=== PATIENT | male | born 1945 | race Caucasian/White ===

== ENCOUNTER 2016-11-15 10:15 | Emergency (ER) | payer OTHER ==
--- NOTE | 2016-11-15 10:27 | UCPHY ---
H & P Patient Type: Established Time Seen by Provider: 11/15/16 10:24 HPI/ROS: 71-year-old male with a history of kidney transplant, and frequent urinary tract infections, referred here by his infectious disease doctor for IV antibiotics and to have labs checked. Patient had 2 episodes of vomiting earlier today but now states he feels much better. He denies fever or flank pain or abdominal pain. Review of systems General no fever no chills no weakness HEENT no eye pain no eye discharge. No eye redness, no sore throat Respiratory no cough, no shortness of breath Cardiac no chest pain, no peripheral edema GI no abdominal pain, no diarrhea, no constipation, positive nausea positive vomiting no flank pain, no hematuria, no dysuria Musculoskeletal no myalgias, no joint pain Heme no easy bruising, no easy bleeding Endo no polyuria, no polydipsia Skin no rashes, no pruritus Neuro no syncope, no dizziness, no headaches Psych is no suicidal ideation, no homicidal ideation Source: Patient, Family Exam Limitations: No limitations - Personal History Tetanus Vaccine Date: 2011 - Medical/Surgical History Hx Asthma: No Hx Chronic Respiratory Disease: No Hx Diabetes: Yes Hx Cardiac Disease: Yes Hx Renal Disease: Yes Hx Cirrhosis: No Hx Alcoholism: No Hx HIV/AIDS: No Hx Splenectomy or Spleen Trauma: No Other PMH: hypothyroid, pacemaker 2012, cardioversion, HTN, kidney transplant, Afib. uti. CVA. CABG - Family History Significant Family History: No pertinent family hx - Social History Smoking Status: Never smoked Alcohol Use: None Drug Use: None - Physical Exam Exam: 71-year-old male alert and oriented no acute distress nontoxic appearance Atraumatic normocephalic Neck supple Lungs clear to auscultation Heart regular rate and Abdomen nondistended bowel sounds present Extremities no cyanosis clubbing or trace edema Constitutional: Initial Vital Signs Temperature (C) 36.4 C 11/15/16 10:33 Heart Rate 70 11/15/16 10:33 Respiratory Rate 18 11/15/16 10:33 Blood Pressure 158/98 H 11/15/16 10:33 O2 Sat (%) 96 11/15/16 10:33 O2 Delivery Mode Room Air Allergies/Adverse Reactions: No Known Allergies Allergy (Verified 11/15/16 10:31) Home Medications: Medication Instructions Recorded Prednisone 5 mg PO DAILY 11/29/11 Timolol 0.5% [TIMOPTIC 0.5% (*)] 1 drops LEFTEYE BID 10/22/12 Latanoprost 0.005% [Xalatan 0.005% 1 drops LEFTEYE DAILY 05/31/13 (*)] Aspirin EC [Aspirin EC 81 mg (OTC)] 81 mg PO DAILY 06/21/13 Furosemide [Lasix 20 MG (*)] 10 mg PO DAILY 06/21/13 Mycophenolate Mofetil [Cellcept 750 mg PO BID 06/21/13 500 mg] Quinapril HCl [Accupril 10 MG] 10 mg PO HS 06/21/13 Rosuvastatin Calcium [Crestor 40mg 40 mg PO HS 06/21/13 (*)] Tacrolimus [Prograf] 1.5 mg PO BID 06/21/13 Warfarin Sodium [Coumadin 2.5MG 2.5 mg PO SUTUWETHSA@1600 06/21/13 (*)] Warfarin Sodium [Coumadin 5MG (*)] 5 mg PO MOFR@1600 06/21/13 Insulin Pump 0 unit SQ AD 11/17/14 Levothyroxine [Synthroid 50 mcg 50 mcg PO DAILY 11/17/14 (*)] Metoprolol Succinate 11/15/16 Medical Decision Making ED Course/Re-evaluation: Patient referred here for urinary tract infection not responding to current antibiotics so Infectious Diseases sent him here to get an IV dose of antibiotics He also had had some nausea and vomiting earlier today so was given fluids and ondansetron. Patient feeling markedly improved Patient received his cefepime 2 g IV piggyback as requested by Infectious Disease Patient to return tomorrow for a 2nd dose of cefepime 2 g IV piggyback He then will follow up with Infectious Disease on Thursday in their outpatient clinic - Data Points Laboratory Results: Laboratory Results 11/15/16 11:11 11/15/16 11:11 11/15/16 11:11 WBC 6.26 10^3/uL (3.80-9.50) RBC 4.55 10^6/uL (4.40-6.38) Hgb 13.4 L g/dL (13.7-17.5) Hct 41.7 % (40.0-51.0) MCV 91.6 fL (81.5-99.8) MCH 29.5 pg (27.9-34.1) MCHC 32.1 L g/dL (32.4-36.7) RDW 13.5 % (11.5-15.2) Plt Count 201 10^3/uL (150-400) MPV 10.0 fL (8.7-11.7) Neut % (Auto) 80.2 H % (39.3-74.2) Lymph % (Auto) 9.1 L % (15.0-45.0) [place] % (Auto) 8.1 % (4.5-13.0) Eos % (Auto) 1.3 % (0.6-7.6) Baso % (Auto) 0.5 % (0.3-1.7) Nucleat RBC Rel Count 0.0 % (0.0-0.2) Absolute Neuts (auto) 5.02 10^3/uL (1.70-6.50) Absolute Lymphs (auto) 0.57 L 10^3/uL (1.00-3.00) Absolute Monos (auto) 0.51 10^3/uL (0.30-0.80) Absolute Eos (auto) 0.08 10^3/uL (0.03-0.40) Absolute Basos (auto) 0.03 10^3/uL (0.02-0.10) Absolute Nucleated RBC 0.00 10^3/uL (0-0.01) Immature Gran % 0.8 % (0.0-1.1) Immature Gran # 0.05 10^3/uL (0.00-0.10) Sodium 136 mEq/L (134-144) Potassium 3.7 mEq/L (3.5-5.2) Chloride 98 mEq/L (97-110) Carbon Dioxide 27 mEq/l (22-31) Anion Gap 11 mEq/L (8-16) BUN 29 H mg/dL (7-23) Creatinine 1.9 H mg/dL (0.7-1.3) Estimated GFR 35 Glucose 198 H mg/dL (70-100) Calcium 8.7 mg/dL (8.5-10.4) Medications Given: Discontinued Medications Cefepime HCl 2 gm/ Dextrose 100 mls @ 200 mls/hr IV EDNOW ONE PRN Reason: Protocol Stop: 11/15/16 11:09 Last Admin: 11/15/16 11:25 Dose: 100 mls Sodium Chloride (Ns) 1,000 mls @ 0 mls/hr IV ONCE ONE PRN Reason: Wide Open Stop: 11/15/16 12:06 Last Admin: 11/15/16 12:06 Dose: 1,000 mls Ondansetron HCl (Zofran) 4 mg IVP EDNOW ONE Stop: 11/15/16 12:06 Last Admin: 11/15/16 12:45 Dose: 4 mg Departure - Departure Disposition: Home, Routine, Self-Care Clinical Impression: Urinary tract infectious disease, Urinary tract infection Condition: Good Instructions: Urinary Tract Infection in Men (ED) Additional Instructions: Return tomorrow as advised by Dr. Orlando for a 2nd dose of cefepime 2 g IV piggyback. She will then see you on Thursday to arrange a pic line and possibly 10 days of antibiotics. Referrals: Mega Leroy MD [Primary Care Provider] - As per Instructions - PQRS PQRS Measurement: 134: Depression screening and followup, PRIME MD-PHQ2 (12 years and older) Over the last 2 weeks, how often have you been bothered by any of the following problems? 1. Feeling down, depressed, or hopeless? 2. Little interest or pleasure in doing things? Patient answered no to both 1 and 2 130: Documentation of medications. Reviewed all patient medications, doses, route and frequency. 226: Do you smoke? No. 47: 65 and older: Advanced care planning. Patient designates surrogate decision maker as spouse.. [Patient has advanced directive.] 51: 18 years old and older with diagnosis of COPD, spirometry performance. [Patient has no history of COPD 52: 18 years old and older with COPD and symptoms of COPD or FEV1<60% predicted prescribed a B Agonist. [Spirometry not performed; equipment not available.]
[2016-11-15] MEDS ORDERED: CEFEPIME HCL 2 GM in D5W 100 ML IV ONE (10:40)
[2016-11-15] MEDS ORDERED: CEFEPIME HCL 2 GM VIAL IV ONE (11:09)
[2016-11-15] MEDS ORDERED: NS 100 ML BAG (MINI-BAG) IV ONE (11:11)
[2016-11-15 11:21] LABS: % IMMATURE GRANULYOCYTES 0.8 % (0.0-1.1); ABSOLUTE IMMATURE GRANULOCYTES 0.05 10^3/uL (0.00-0.10); ADD DIFF? NO; ADD MORPH? NO; ADD SCAN? NO; ATYPICAL LYMPHOCYTE FLAG 0 (0-99); FRAGMENT RBC FLAG 0 (0-99); HEMATOCRIT 41.7 % (40.0-51.0); HEMOGLOBIN 13.4 g/dL (13.7-17.5); LEFT SHIFT FLG 0 (0-99); LIPEMIA HEMOLYSIS FLAG 80 (0-99); MEAN CELL HEMOGLOBIN 29.5 pg (27.9-34.1); MEAN CELL HEMOGLOBIN CONCENTR. 32.1 g/dL (32.4-36.7); MEAN CELL VOLUME 91.6 fL (81.5-99.8); PLATELET CLUMPS FLAG 0 (0-99); PLATELET COUNT 201 10^3/uL (150-400); RED BLOOD CELL COUNT 4.55 10^6/uL (4.40-6.38); RED CELL DISTRIBUTION WIDTH 13.5 % (11.5-15.2)
[2016-11-15 11:37] LABS: CALCIUM 8.7 mg/dL (8.5-10.4); CREATININE 1.9 mg/dL (0.7-1.3); POTASSIUM 3.7 mEq/L (3.5-5.2)
[2016-11-15] MEDS ORDERED: NS 1,000 ML IV ONE (12:05)
[2016-11-15] MEDS ORDERED: ONDANSETRON 4 MG/2 ML VIAL IVP ONE (12:05)
[2016-11-15 13:10] VITALS: BP 165/92; PULSE 76; RESP 16; TEMP 98.1; O2SAT 95
== END 2016-11-15 13:13 | disposition home or self-care (01) ==
LOC: CED 10:15
DX: N39.0 Urinary tract infection, site not specified (principal); Z94.0 Kidney transplant status; Z87.440 Personal history of urinary (tract) infections
CPT/HCPCS: 96361; 96365; 96375; G0463; J0692; J2405; 80048-PO; 85025-PO; 99214-PO

== ENCOUNTER 2016-11-16 12:05 | Emergency (ER) | payer OTHER ==
[2016-11-16 12:27] VITALS: BP 151/83; PULSE 70; RESP 16; TEMP 98.1; O2SAT 99
[2016-11-16] MEDS ORDERED: CEFEPIME HCL 2 GM in NS 100 ML IV ONE (13:21)
--- NOTE | 2016-11-16 13:24 | UCPHY ---
H & P Time Seen by Provider: 11/16/16 13:18 Patient Type: Established HPI/ROS: CHIEF COMPLAINT: Here for IV antibiotics HISTORY OF PRESENT ILLNESS: 71-year-old male history of kidney transplant, frequent urinary tract infections, in the urgent care for 2nd dose of IV cefepime. He was referred to the urgent care yesterday by his infectious disease doctor, Dr. Ching Camarena for IV cefepime and have laboratory studies drawn. Today is Thursday. The plan is that he will receive a dose of IV cefepime today be seen by Dr. da vega tomorrow. In clinic today states that he is feeling remarkably better. No nausea or vomiting. No fever or chills. No back or flank pain. No flu-like symptoms. REVIEW OF SYSTEMS: A ten point review of systems was performed and is negative with the exception of the items mentioned in the HPI PAST MEDICAL & SURGICAL HISTORY: Kidney transplant. Hypothyroid. CABG. AFib. Frequent UTI. SOCIAL HISTORY: Nonsmoker PHYSICAL EXAM (Prior to examination, patient consented to physical exam, hands were washed and my usual and customary physical exam procedures followed) 1) GENERAL: Well-developed, well-nourished, alert and oriented. Appears to be in no acute distress. 2) HEAD: Normocephalic, atraumatic 3) HEENT: Pupils equal, round, reactive to light bilaterally. Sclera anicteric. 4) NECK: Full range of motion, no meningeal signs. 5) LUNGS: Clear auscultation bilaterally, no wheezes, no rhonchi, no retractions. 6) HEART: Regular rate and rhythm, no murmur, no heave, no gallop. 7) ABDOMEN: No guarding, no rebound, no focal tenderness, negative McBurney's, negative Doherty's, negative Rovsing's, negative peritoneal sign, 8) MUSCULOSKELETAL: Moving all extremities, no focal areas of tenderness, no obvious trauma. No peripheral edema or discoloration. 9) BACK: No CVA tenderness 10) SKIN: No rash, no petechiae. 11) Psychiatric: Patient is oriented X 3, there is no agitation. DIFFERENTIAL DIAGNOSIS: in no particular order including but not limited to urosepsis, pyelonephritis, cystitis Smoking Status: Never smoked Constitutional: Initial Vital Signs Temperature (C) 36.7 C 11/16/16 12:24 Heart Rate 70 11/16/16 12:24 Respiratory Rate 16 11/16/16 12:24 Blood Pressure 151/83 H 11/16/16 12:24 O2 Sat (%) 99 11/16/16 12:24 O2 Delivery Mode Room Air Allergies/Adverse Reactions: No Known Allergies Allergy (Verified 11/15/16 10:31) Home Medications: Medication Instructions Recorded Prednisone 5 mg PO DAILY 11/29/11 Timolol 0.5% [TIMOPTIC 0.5% (*)] 1 drops LEFTEYE BID 10/22/12 Latanoprost 0.005% [Xalatan 0.005% 1 drops LEFTEYE DAILY 05/31/13 (*)] Aspirin EC [Aspirin EC 81 mg (OTC)] 81 mg PO DAILY 06/21/13 Furosemide [Lasix 20 MG (*)] 10 mg PO DAILY 06/21/13 Mycophenolate Mofetil [Cellcept 750 mg PO BID 06/21/13 500 mg] Quinapril HCl [Accupril 10 MG] 10 mg PO HS 06/21/13 Rosuvastatin Calcium [Crestor 40mg 40 mg PO HS 06/21/13 (*)] Tacrolimus [Prograf] 1.5 mg PO BID 06/21/13 Warfarin Sodium [Coumadin 2.5MG 2.5 mg PO SUTUWETHSA@1600 06/21/13 (*)] Warfarin Sodium [Coumadin 5MG (*)] 5 mg PO MOFR@1600 06/21/13 Insulin Pump 0 unit SQ AD 11/17/14 Levothyroxine [Synthroid 50 mcg 50 mcg PO DAILY 11/17/14 (*)] Metoprolol Succinate 11/15/16 MDM/Departure - [facility] ED Course/Re-evaluation: 1:24 p.m.: Old medical records reviewed including his chart from the urgent care yesterday and his urine culture and sensitivity showing E coli and cefepime sensitivity. As today is Thursday, he will be given his 2nd dose of IV cefepime will follow up with his infectious disease doctor tomorrow Dr. Ching Orlando . Discussed with Dr Collins in urgent care. - Depart Disposition: Home, Routine, Self-Care Clinical Impression: Urinary tract infection Qualifiers: Urinary tract infection type: acute cystitis Hematuria presence: with hematuria Qualifier Code: (N30.01) Acute cystitis with hematuria Condition: Good Instructions: Urinary Tract Infection in Men (ED) Additional Instructions: If you develop fevers, nausea, vomiting or any other symptoms come to the ER immediately for evaluation Referrals: Ching Orlando MD [Medical Doctor] - 1 day without fail (Call Dr. Ching Orlando tomorrow morning) - PQRS PQRS Measurement: 134: Depression screening and followup, PRIME MD-PHQ2 (12 years and older) Over the last 2 weeks, how often have you been bothered by any of the following problems? 1. Feeling down, depressed, or hopeless? 2. Little interest or pleasure in doing things? Patient answered no to both 1 and 2 Patient answered yes to at least 1, referred to PCP for further evaluation. Not done because altered mental status patient refused critically ill. 130: Documentation of medications. Reviewed all patient medications, doses, route and frequency. 226: Do you smoke? No. 47: 65 and older: Advanced care planning. Patient designates surrogate decision maker as spouse . 51: 18 years old and older with diagnosis of COPD, spirometry performance. Patient has no history of COPD 52: 18 years old and older with COPD and symptoms of COPD or FEV1<60% predicted prescribed a B Agonist. Not applicable
[2016-11-16] MEDS ORDERED: NS 100 ML BAG (MINI-BAG) IV ONE (13:29)
[2016-11-16] MEDS ORDERED: CEFEPIME HCL 2 GM VIAL IV ONE (13:29)
== END 2016-11-16 14:12 | disposition home or self-care (01) ==
LOC: CED 12:05
DX: Z51.81 Encounter for therapeutic drug level monitoring (principal); N30.01 Acute cystitis with hematuria; Z94.0 Kidney transplant status; Z87.440 Personal history of urinary (tract) infections
CPT/HCPCS: 96365; G0463; J0692

== ENCOUNTER 2017-02-11 17:54 | Observation (INO) | payer OTHER ==
--- NOTE | 2017-02-11 18:22 | CPEKG ---
Heart Rate: 76 RR Interval: 789 P-R Interval: 228 QRSD Interval: 110 QT Interval: 448 QTC Interval: 504 P [place]: 62 QRS [place]: 83 T Wave [place]: -84 EKG Severity - ABNORMAL ECG - EKG Impression: SINUS RHYTHM EKG Impression: FIRST DEGREE AV BLOCK EKG Impression: INCOMPLETE RIGHT BUNDLE BRANCH BLOCK EKG Impression: BORDERLINE ST DEPRESSION, LATERAL LEADS Electronically Signed By: Jovanny Lang 11-Feb-2017 18:22:04
--- NOTE | 2017-02-11 18:22 | EDPHY ---
H & P Time Seen by Provider: 02/11/17 18:11 HPI/ROS: CHIEF COMPLAINT: Chest pain HISTORY OF PRESENT ILLNESS: Patient had cardiac bypass approximately 20 years ago and a kidney transplant around that time as well. He had a pacemaker placed in 2012. Today was at home about to take a nap when he developed central chest pain which did not radiate and was associated with some shortness of breath but not with nausea or diaphoresis. It lasted maybe an hour and now is completely gone. He had another episode like that in September. He has not had any stenting since his bypass. REVIEW OF SYSTEMS: Eye: no change in vision ENT: no sore throat Cardiac: HPI Pulmonary: chronic cough, unchanged, no SOB Abdomen: no vomiting, diarrhea, abdominal pain Musculoskeletal: no back pain Skin: Chronic multiple bruising from Coumadin. Neuro: no headache Constitutional: no fever : no urinary symptoms. Self catheterizes but no change. A comprehensive 10 point review of systems is otherwise negative aside from elements mentioned in the history of present illness. PAST MEDICAL HISTORY: Thyroid disease, pacemaker, hypertension, kidney transplant, atrial fibrillation, stroke, cardiac bypass. Social history: . General Appearance: Alert and conversant, cooperative. Eyes: No scleral icterus. ENT, Mouth: Normal mucous membranes. Respiratory: Normal respiratory effort, breath sounds equal, lungs are clear to auscultation. Cardiovascular: Regular rate and rhythm. Gastrointestinal: Abdomen is soft and non tender. Neurological: Alert and oriented x3. Normally conversant. Face symmetric, normal movement and sensation in all extremities. Skin: Multiple areas of bruising. Musculoskeletal: No peripheral edema and no joint swelling. Psychiatric: Not agitated. Emergency Department course/MDM: EKG is remarkable for new T-wave inversions inferolaterally. Plan for chest x- ray and troponin. No aspirin because the patient is on warfarin. 1906: Results discussed including creatinine 2.0 which is around baseline, and slightly elevated troponin which is similar to previous. Plan to admit for cardiology evaluation with new EKG changes. INR is 3.19, pulmonary embolism unlikely. Smoking Status: Never smoked Constitutional: Initial Vital Signs Temperature (C) 36.6 C 02/11/17 18:02 Heart Rate 76 02/11/17 18:02 Respiratory Rate 20 02/11/17 18:02 Blood Pressure 131/75 H 02/11/17 18:02 O2 Sat (%) 93 02/11/17 18:02 O2 Delivery Mode Room Air Allergies/Adverse Reactions: No Known Allergies Allergy (Verified 02/11/17 18:00) Home Medications: Medication Instructions Recorded Prednisone 5 mg PO DAILY 11/29/11 Timolol 0.5% [TIMOPTIC 0.5% (*)] 1 drops LEFTEYE BID 10/22/12 Latanoprost 0.005% [Xalatan 0.005% 1 drops LEFTEYE DAILY 05/31/13 (*)] Aspirin EC [Aspirin EC 81 mg (OTC)] 81 mg PO DAILY 06/21/13 Furosemide [Lasix 20 MG (*)] 10 mg PO DAILY 06/21/13 Mycophenolate Mofetil [Cellcept 750 mg PO BID 06/21/13 500 mg] Quinapril HCl [Accupril 10 MG] 10 mg PO HS 06/21/13 Rosuvastatin Calcium [Crestor 40mg 40 mg PO HS 06/21/13 (*)] Tacrolimus [Prograf] 1.5 mg PO BID 06/21/13 Warfarin Sodium [Coumadin 2.5MG 2.5 mg PO SUTUWETHSA@1600 06/21/13 (*)] Warfarin Sodium [Coumadin 5MG (*)] 5 mg PO MOFR@1600 06/21/13 Insulin Pump 0 unit SQ AD 11/17/14 Levothyroxine [Synthroid 50 mcg 50 mcg PO DAILY 11/17/14 (*)] Metoprolol Succinate 11/15/16 Medical Decision Making - Diagnostics EKG Interpretation: 12-lead EKG interpreted by me; official reading is in trace master. My interpretation is sinus rhythm with first-degree AV block and new inferior lateral T-wave inversions compared to previous. Imaging Results: Imaging Impressions Chest X-Ray 02/11/17 18:20 Impression: 1. Pacemaker without pneumothorax. 2. No acute pulmonary disease. Differential Diagnosis: Differential diagnosis considered for chest pain including but not limited to myocardial ischemia, aortic dissection, pericarditis, pulmonary embolus, chest wall pain, pleural inflammation and pulmonary infectious causes. Consult/Admit Bed Type: [facility] 1914, [facility] 1920 - Data Points Laboratory Results: Laboratory Results 02/11/17 18:13 02/11/17 18:13 02/11/17 02/11/17 02/11/17 18:13 18:13 18:13 WBC 6.47 10^3/uL 10^3/uL (3.80-9.50) RBC 4.99 10^6/uL 10^6/uL (4.40-6.38) Hgb 14.6 g/dL g/dL (13.7-17.5) Hct 47.3 % % (40.0-51.0) MCV 94.8 fL fL (81.5-99.8) MCH 29.3 pg pg (27.9-34.1) MCHC 30.9 g/dL L g/dL (32.4-36.7) RDW 13.2 % % (11.5-15.2) Plt Count 233 10^3/uL 10^3/uL (150-400) MPV 10.0 fL fL (8.7-11.7) Neut % (Auto) 86.3 % H % (39.3-74.2) Lymph % (Auto) 6.2 % L % (15.0-45.0) [place] % (Auto) 6.2 % % (4.5-13.0) Eos % (Auto) 0.3 % L % (0.6-7.6) Baso % (Auto) 0.2 % L % (0.3-1.7) Nucleat RBC Rel Count 0.0 % % (0.0-0.2) Absolute Neuts (auto) 5.59 10^3/uL 10^3/uL (1.70-6.50) Absolute Lymphs (auto) 0.40 10^3/uL L 10^3/uL (1.00-3.00) Absolute Monos (auto) 0.40 10^3/uL 10^3/uL (0.30-0.80) Absolute Eos (auto) 0.02 10^3/uL L 10^3/uL (0.03-0.40) Absolute Basos (auto) 0.01 10^3/uL L 10^3/uL (0.02-0.10) Absolute Nucleated RBC 0.00 10^3/uL 10^3/uL (0-0.01) Immature Gran % 0.8 % % (0.0-1.1) Immature Gran # 0.05 10^3/uL 10^3/uL (0.00-0.10) PT 33.1 SEC H SEC (12.0-15.0) INR 3.19 H (0.83-1.16) APTT 38.6 SEC H SEC (23.0-38.0) Sodium 134 mEq/L mEq/L (134-144) Potassium 4.6 mEq/L mEq/L (3.5-5.2) Chloride 97 mEq/L mEq/L (97-110) Carbon Dioxide 27 mEq/l mEq/l (22-31) Anion Gap 10 mEq/L mEq/L (8-16) BUN 37 mg/dL H mg/dL (7-23) Creatinine 2.0 mg/dL H mg/dL (0.7-1.3) Estimated GFR 33 Glucose 367 mg/dL H mg/dL (70-100) Calcium 9.1 mg/dL mg/dL (8.5-10.4) Troponin I 0.038 ng/mL H ng/mL (0-0.034) Departure - Departure Disposition: [facility] [place] [facility] Acute Clinical Impression: Chest pain Qualifiers: Chest pain type: unspecified Qualified Code(s): R07.9 - Chest pain, unspecified Condition: Good Referrals: Mega Leroy MD [Primary Care Provider] - As per Instructions
[2017-02-11 18:33] LABS: % IMMATURE GRANULYOCYTES 0.8 % (0.0-1.1); ABSOLUTE IMMATURE GRANULOCYTES 0.05 10^3/uL (0.00-0.10); ADD DIFF? NO; ADD MORPH? NO; ADD SCAN? NO; ATYPICAL LYMPHOCYTE FLAG 0 (0-99); FRAGMENT RBC FLAG 0 (0-99); HEMATOCRIT 47.3 % (40.0-51.0); HEMOGLOBIN 14.6 g/dL (13.7-17.5); LEFT SHIFT FLG 0 (0-99); LIPEMIA HEMOLYSIS FLAG 80 (0-99); MEAN CELL HEMOGLOBIN 29.3 pg (27.9-34.1); MEAN CELL HEMOGLOBIN CONCENTR. 30.9 g/dL (32.4-36.7); MEAN CELL VOLUME 94.8 fL (81.5-99.8); PLATELET CLUMPS FLAG 0 (0-99); PLATELET COUNT 233 10^3/uL (150-400); RED BLOOD CELL COUNT 4.99 10^6/uL (4.40-6.38); RED CELL DISTRIBUTION WIDTH 13.2 % (11.5-15.2)
[2017-02-11 18:46] LABS: INR 3.19 (0.83-1.16); PROTIME(PATIENT) 33.1 SEC (12.0-15.0)
[2017-02-11 18:47] LABS: APTT 38.6 SEC (23.0-38.0)
[2017-02-11 18:50] LABS: ANION GAP 10 mEq/L (8-16); CALCIUM 9.1 mg/dL (8.5-10.4); CARBON DIOXIDE 27 mEq/l (22-31); CHLORIDE 97 mEq/L (97-110); GLOMERULAR FILTRATION RATE 33; GLUCOSE 367 mg/dL (70-100); POTASSIUM 4.6 mEq/L (3.5-5.2); SODIUM 134 mEq/L (134-144)
[2017-02-11 19:02] LABS: TROPONIN I 0.038 ng/mL (0-0.034)
--- NOTE | 2017-02-11 20:45 | GHP ---
[f rep st] HISTORY AND PHYSICAL DATE OF ADMISSION: 02/11/2017 CHIEF COMPLAINT: Chest pressure. HISTORY OF PRESENT ILLNESS: This is a 71-year-old male with a history of coronary artery disease, status post 5-vessel CABG who presented to the emergency department today with chest pressure. His symptoms began at 4:15 a.m. while he was at rest. It was described as a left-sided 2/10 pressure that lasted for an hour and then self-resolved. It was associated with some mild shortness of breath. Currently he is pain free. The patient tells me he had a similar episode of chest discomfort in September at which time he was evaluated at [facility] and had a nuclear stress test done which was irregular, but was not thought to be ischemic. 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 Terry Wheat. PAST MEDICAL HISTORY: 1. Coronary artery disease, status post 5-vessel CABG. 2. Atrial fibrillation on anticoagulation. 3. CVA. 4. Hypertension. 5. Urinary tract infections with Pseudomonas colonization. 6. Diabetes mellitus. 7. Obstructive sleep apnea. 8. Diastolic congestive heart failure. 9. Hypothyroidism. 10. Status post kidney transplant due to diabetic nephropathy. PAST SURGICAL HISTORY: 1. Five-vessel CABG. 2. Kidney transplant. 3. Right great toe amputation. 4. Left arm open reduction and internal fixation. 5. Pacemaker placement. HOME MEDICATIONS: Were reviewed. Refer to [facility] for details. ALLERGIES: No known drug allergies. SOCIAL HISTORY: The patient is . His is at the bedside. He denies any alcohol, tobacco, or illicit drug use. FAMILY HISTORY: Reviewed and noncontributory. REVIEW OF SYSTEMS: A comprehensive 10-point review of systems was done and was negative except for as mentioned in the HPI. PHYSICAL EXAMINATION: VITAL SIGNS: Blood pressure 131/75, pulse 76, respiratory rate 20, O2 saturation 93% on room air. Temperature afebrile. GENERAL: No acute distress. HEAD: Normocephalic, atraumatic. EYES: PERRLA. Sclerae anicteric. MOUTH: Moist mucous membranes. NECK: Supple. No lymphadenopathy. CARDIOVASCULAR: S1, S2. No JVD. No lower extremity edema. PULMONARY: Lungs are clear. No wheezes, rales, or rhonchi. ABDOMEN: Soft, nontender, nondistended. No guarding or rebound tenderness. Normoactive bowel sounds. EXTREMITIES: No clubbing or cyanosis. NEURO: Cranial nerves 2-12 grossly intact. No focal motor or sensory deficits. DIAGNOSTICS: WBC 6.47, hemoglobin 14.6, hematocrit 47.3, platelets 233. INR 3.19, sodium 134, potassium 4.6, chloride 97, BUN 37, creatinine 2, glucose 367 , troponin was 0.038. Chest x-ray shows no acute pulmonary disease. EKG, which I visualized and personally interpreted, shows sinus rhythm, rate 76 beats per minute with borderline ST depressions in the lateral leads. ASSESSMENT AND PLAN: This is a 71-year-old male with multiple risk factors for acute coronary syndrome and known coronary disease with history of 5-vessel coronary artery bypass graft, presenting with: 1. Left-sided chest pressure in the setting of an indeterminate troponin and abnormal EKG. Plan: The patient will be placed on observation. Will be monitored on telemetry where his we will cycle his troponins. Cardiology has been consulted. 2. History of atrial fibrillation, with therapeutic INR on Coumadin. Will continue home dose of Coumadin. 3. History of diabetes mellitus with likely stress hyperglycemia. Plan: continue the patient's home diabetes medications and treat with correctional insulin as indicated. 6. History of renal transplant with stable creatinine. Plan: Continue home antirejection medications. /[id number]/MODL MTDD
[2017-02-11] MEDS ORDERED: D50W 25 GM/50 ML SYR IVP PRN (21:53)
[2017-02-12 04:57] LABS: INR 3.74 (0.83-1.16); PROTIME(PATIENT) 37.6 SEC (12.0-15.0)
[2017-02-12 05:28] LABS: ANION GAP 5 mEq/L (8-16); CALCIUM 8.6 mg/dL (8.5-10.4); CARBON DIOXIDE 28 mEq/l (22-31); CHLORIDE 101 mEq/L (97-110); CREATININE 1.8 mg/dL (0.7-1.3); GLOMERULAR FILTRATION RATE 37; GLUCOSE 56 mg/dL (70-100); SODIUM 134 mEq/L (134-144)
[2017-02-12] MEDS: INSULIN LISPRO 100 UNIT/ML SC SCH ×2 (09:06→14:34)
--- NOTE | 2017-02-12 10:47 | PDCARCONS ---
Cardiology Consult Reason for Consult: chest pressure Chief Complaint: Episode of chest pressure Requesting Physician: Germaine History of Present Illness: 71 yo with known CAD, recurrent afib/atach with pacer. He had a recent UTI and completed 4 days of bactrim. Yesterday he awoke to urinate. He had upper chest pressure with this. It did not radiate to arm or jaw. It was not associated with shortness of breath or diaphoresis. No nausea or vomitng. Pain lasted 1-2 hours then resolved. He felt like he was in a tachy-arrhythmia and came to the ED. He feels back to baseline. He has a hx. of remote [place]. Last September he was admitted to [facility] and had a MPI revealing IMI. EF has been preserved. This am he is free of chest pain, sob, pnd,orthopnea,palps, syncope,near- syncope. History Information - Allergies/Home Medication List Allergies/Adverse Reactions: No Known Allergies Allergy (Verified 02/11/17 18:00) Home Medications: Amiodarone HCl [Pacerone (*)] 200 mg PO DAILY 02/11/17 [Last Taken 02/11/17] Aspirin [Aspirin 81mg (*)] 81 mg PO DAILY 02/11/17 [Last Taken 02/11/17] Atorvastatin Calcium [Lipitor 40 mg (*)] 40 mg PO HS 02/11/17 [Last Taken Unknown] Furosemide [Lasix 20 MG (*)] 10 mg PO DAILY 02/11/17 [Last Taken 02/11/17] Insulin Pump, Patient Own 1 ea [facility] AD 02/11/17 [Last Taken Unknown] Latanoprost 0.005% [Xalatan 0.005% (*)] 1 drops EACHEYE HS 02/11/17 [Last Taken 02/10/17] Levothyroxine [Synthroid 50 mcg (*)] 50 mcg PO DAILY 02/11/17 [Last Taken ] Metoprolol Tartrate [Lopressor 25 mg (*)] 25 mg PO BID 02/11/17 [Last Taken ] Mycophenolate Mofetil [Cellcept] 750 mg PO BID 02/11/17 [Last Taken 02/11/17] Quinapril HCl [Accupril 5 mg] 5 mg PO HS 02/11/17 [Last Taken 02/10/17] Tacrolimus Anhydrous [Prograf 0.5 MG (*)] 1.5 mg PO BID 02/11/17 [Last Taken ] Timolol 0.5% [TIMOPTIC 0.5% (*)] 1 drops LEFTEYE DAILY 02/11/17 [Last Taken ] Warfarin Sodium [Coumadin 2.5MG (*)] 2.5 mg PO SUTUWETHSA 02/11/17 [Last Taken 02/09/17] Warfarin Sodium [Coumadin 5MG (*)] 5 mg PO MOFR 02/11/17 [Last Taken 02/10/17] predniSONE 5 mg PO DAILY 02/11/17 [Last Taken 02/11/17] I have personally reviewed and updated: medical history, social history, surgical history - Past Medical History atrial fibrillation, coronary artery disease, diabetes type 1, recurrent UTI - Surgical History Reports: pacemaker/AICD - Family History Positive for: non-pertinent - Social History Smoking Status: Never smoked Physical Exam Temp Pulse Resp BP Pulse Ox 36.6 C 83 20 151/99 H 91 L 02/12/17 07:51 02/12/17 07:51 02/12/17 07:51 02/12/17 07:51 02/12/17 07:51 O2 (L/minute) 2 Constitutional: no apparent distress Eyes: No icteric sclera Ears, Nose, Mouth, Throat: moist mucous membranes Cardiovascular: regular rate and rhythym, No JVD Peripheral Pulses: 1+: carotid (R), carotid (L) Respiratory: no respiratory distress, no rales or rhonchi, clear to auscultation Gastrointestinal: normoactive bowel sounds, soft, non-tender abdomen Skin: warm, other (cushingoid facies) Neurologic: AAOx3 Psychiatric: not anxious Lymph, Heme, Immunologic: no cervical LAD, no supraclavicular LAD Lab and Imaging 02/11/17 18:13 02/12/17 03:52 WBC 6.47 10^3/uL (3.80-9.50) 02/11/17 18:13 RBC 4.99 10^6/uL (4.40-6.38) 02/11/17 18:13 Hgb 14.6 g/dL (13.7-17.5) 02/11/17 18:13 Hct 47.3 % (40.0-51.0) 02/11/17 18:13 MCV 94.8 fL (81.5-99.8) 02/11/17 18:13 MCH 29.3 pg (27.9-34.1) 02/11/17 18:13 MCHC 30.9 g/dL (32.4-36.7) L 02/11/17 18:13 RDW 13.2 % (11.5-15.2) 02/11/17 18:13 Plt Count 233 10^3/uL (150-400) 02/11/17 18:13 MPV 10.0 fL (8.7-11.7) 02/11/17 18:13 Neut % (Auto) 86.3 % (39.3-74.2) H 02/11/17 18:13 Lymph % (Auto) 6.2 % (15.0-45.0) L 02/11/17 18:13 Mora % (Auto) 6.2 % (4.5-13.0) 02/11/17 18:13 Eos % (Auto) 0.3 % (0.6-7.6) L 02/11/17 18:13 Baso % (Auto) 0.2 % (0.3-1.7) L 02/11/17 18:13 Nucleat RBC Rel Count 0.0 % (0.0-0.2) 02/11/17 18:13 Absolute Neuts (auto) 5.59 10^3/uL (1.70-6.50) 02/11/17 18:13 Absolute Lymphs (auto) 0.40 10^3/uL (1.00-3.00) L 02/11/17 18:13 Absolute Monos (auto) 0.40 10^3/uL (0.30-0.80) 02/11/17 18:13 Absolute Eos (auto) 0.02 10^3/uL (0.03-0.40) L 02/11/17 18:13 Absolute Basos (auto) 0.01 10^3/uL (0.02-0.10) L 02/11/17 18:13 Absolute Nucleated RBC 0.00 10^3/uL (0-0.01) 02/11/17 18:13 Immature Gran % 0.8 % (0.0-1.1) 02/11/17 18:13 Immature Gran # 0.05 10^3/uL (0.00-0.10) 02/11/17 18:13 PT 37.6 SEC (12.0-15.0) H 02/12/17 03:52 INR 3.74 (0.83-1.16) H 02/12/17 03:52 APTT 38.6 SEC (23.0-38.0) H 02/11/17 18:13 Sodium 134 mEq/L (134-144) 02/12/17 03:52 Potassium 4.0 mEq/L (3.5-5.2) 02/12/17 03:52 Chloride 101 mEq/L (97-110) 02/12/17 03:52 Carbon Dioxide 28 mEq/l (22-31) 02/12/17 03:52 Anion Gap 5 mEq/L (8-16) L 02/12/17 03:52 BUN 37 mg/dL (7-23) H 02/12/17 03:52 Creatinine 1.8 mg/dL (0.7-1.3) H 02/12/17 03:52 Estimated GFR 37 02/12/17 03:52 Glucose 56 mg/dL (70-100) L 02/12/17 03:52 POC Glucose 117 mg/dL (70-100) H 02/12/17 06:28 Calcium 8.6 mg/dL (8.5-10.4) 02/12/17 03:52 Troponin I 0.033 ng/mL (0-0.034) 02/11/17 23:10 Laboratory Tests 02/11/17 02/11/17 02/12/17 18:13 23:10 03:52 Creatinine 2.0 H 1.8 H Troponin I 0.038 H 0.033 Visualized and Interpreted imaging results: Yes Interpretation: pacemaker. no infiltrate. EKG additional interpertation: sr with lvh and strain A/P Assessment: 1. Atypical chest pain with flat troponin. 2. CAD hx. 3. Hx. afib/Atach on amiodarone with PPM History is not consistent with acute coronary syndrome with stable ecg and flat enzymes despite two hours of discomfort. He has been recently risk stratified. Angiography has been discussed, but, with CRI, risk out weighs benefit at this point. Plan: Ambulate. If free of pain, home with outpatient follow up Continue current medical therapy. Consider repeat lexiscan as outpatient. Add shanna mb/ Review of Systems - Review of Systems Constitutional: denies: chills, diaphoresis, fever Respiratory: no symptoms reported, shortness of breath Cardiac: no symptoms reported Gastrointestinal/Abdominal: no symptoms reported Genitourinary: no symptoms Musculoskelatal: no symptoms Skin: no symptoms Neurological: dizziness Hematologic/Lymphatic: no symptoms reported Immunologic/allergic: no symptoms reported
[2017-02-12 12:14] VITALS: TEMP 98
[2017-02-12 13:32] LABS: COLOR YELLOW; LEUKOCYTE ESTERASE,URINE 2+ (NEGATIVE); NITRITE,URINE NEGATIVE (NEGATIVE)
[2017-02-12 14:23] LABS: BACTERIA TRACE /hpf (NONE SEEN); WBC,URINE 25-50 /hpf (0-3)
[2017-02-12] MEDS ORDERED: NON-FORMULARY NEW DRUG (Insulin Pump, Patient Own 1 EA) MISC SCH (14:45)
[2017-02-12 16:17] VITALS: BP 149/96; PULSE 84; RESP 15; O2SAT 93
[2017-02-12 16:45] LABS: CK-MB INTERPRETATION POSITIVE (NEGATIVE); CREATINE KINASE-MB FRACTION 3.33 ng/mL (0-4.55)
--- NOTE | 2017-02-12 18:41 | PCMIDPN ---
Assessment/Plan: Assessment/Plan: * Pyuria: Recently completed 5 day course of Bactrim for E coli UTI. Symptoms now have resolved. Given absence of symptoms, recommend continued observation off antibiotic therapy at this point in time. Culture is pending in event develops symptoms which would help with guiding antibiotic therapy. Discussed with patient, and nursing staff. Advised to notify me if develops recurrent symptoms of UTI. 02/12/17 18:37 Subjective: Asked to see patient well known to me with history of recurrent urinary tract infection, urinary retention requiring intermittent catheterization, and prior renal transplantation with concerns about possible recurrent UTI. Patient recently completed 5 days of Bactrim for E coli UTI. His notes that his symptoms were slow to resolve and that he was still having cloudy urine prior to hospitalization for chest pain. She notes since hospitalization, the urine has cleared and his frequency has decreased. He does have intermittent difficulty passing catheters but this is unchanged from baseline. No fever or chills. No abdominal or flank pain. Objective: Vital Signs Temp Pulse Resp BP Pulse Ox 36.7 C 84 15 149/96 H 93 02/12/17 16:16 02/12/17 16:16 02/12/17 16:16 02/12/17 16:16 02/12/17 16:16 Laboratory Results 02/12/17 03:52 02/11/17 02/12/17 02/13/17 05:59 05:59 05:59 Intake Total 750 300 Output Total 650 1550 Balance 100 -1250 Laboratory Tests 02/12/17 13:00 Urine RBC 3-5 H Urine WBC 25-50 H Urine Bacteria TRACE H - Physical Exam General Appearance: alert, no apparent distress Abdomen: non-tender, No distended Back: No CVA tenderness ICD10 Worksheet Patient Problems: Problems Problem Status Onset Afib - Atrial fibrillation Active CAD - Coronary arteriosclerosis Active Chronic kidney disease stage 5 Active Diabetes mellitus type 1 Active History of - hypertension Active Tachycardia-bradycardia Active Chest pain Acute Urinary tract infection Acute
--- NOTE | 2017-02-12 19:04 | GDS ---
[f rep st] DISCHARGE SUMMARY DISCHARGE DIAGNOSES: 1. Atypical chest pain with flat troponin. 2. Coronary artery disease. 3. Atrial fibrillation with pacemaker. 4. Possible urinary tract infection. 5. Diabetes. 6. Kidney transplant on chronic immunosuppression. 7. 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 8. Pseudomonas colonization of the urine. 9. Previous coronary artery bypass graft. HISTORY: The patient is a 71-year-old male with a history of coronary artery disease status post fi ve-vessel CABG who presented with chest pain. This was transient and resolved. He was seen in cons ultation with Dr. 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 He felt his chest pain was atypical and his tro ponins were flat, and no further intervention was needed at this time. The patient remained symptom -free throughout the remainder of his observation. He does have recurrent resistant urinary tract infections and follows closely with Dr. Villegas. He had just finished a course of Bactrim and had recurrence of symptoms after the Bactrim had stopped. Re peat UA showed persistent white blood cell elevation in the urine. Dr. Villegas saw the patient in the hospital as his last E coli had very few options orally other than Bactrim. He is at high risk for Bactrim therapy given his chronic kidney disease, baseline creatinine [address] Villegas saw him in consultation and did not think we needed to repeat an antibiotic course at thi s time. FOLLOW-UP: He will follow up with Dr. Villegas closely on an ongoing basis regarding this. DISCHARGE MEDICATIONS: Please see computer record for full detailed list. There are no new medicat ions given at the time of hospital discharge. Patient was seen and examined by me on the day of discharge. /[id number]/MODL
[2017-02-12] MEDS ORDERED: MYCOPHENOLATE MOFETIL 750 MG PO SCH (21:00)
[2017-02-12] MEDS ORDERED: METOPROLOL TARTRATE 25 MG TAB PO SCH (21:00)
[2017-02-12] MEDS ORDERED: MYCOPHENOLATE MOFETIL 250 MG CAP PO SCH (21:00)
[2017-02-12] MEDS ORDERED: TACROLIMUS 1 MG CAP PO SCH (21:00)
[2017-02-12] MEDS ORDERED: LISINOPRIL 5 MG TAB PO SCH (21:00)
[2017-02-12] MEDS ORDERED: TACROLIMUS ANHYDROUS 0.5 MG CAP PO SCH (21:00)
[2017-02-12] MEDS ORDERED: QUINAPRIL HCL 5 MG PO SCH (21:00)
[2017-02-12] MEDS ORDERED: LATANOPROST 0.005% 2.5 ML OPHT DROPS EACHEYE SCH (21:00)
[2017-02-12] MEDS ORDERED: ATORVASTATIN CALCIUM 40 MG TAB PO SCH (21:00)
[2017-02-13] MEDS ORDERED: LEVOTHYROXINE 50 MCG TAB PO SCH (09:00)
[2017-02-13] MEDS ORDERED: AMIODARONE HCL 200 MG TAB PO SCH (09:00)
[2017-02-13] MEDS ORDERED: predniSONE 5 MG TAB PO SCH (09:00)
[2017-02-13] MEDS ORDERED: FUROSEMIDE 20 MG TAB PO SCH (09:00)
[2017-02-13] MEDS ORDERED: ASPIRIN 81 MG CHEWABLE TAB PO SCH (09:00)
[2017-02-13] MEDS ORDERED: TIMOLOL 0.5% 15 ML OPHT.BTL LEFTEYE SCH (09:00)
== END 2017-02-12 17:39 | disposition home or self-care (01) ==
LOC: INTOOBSV 19:19 → F2W 20:19
PROVIDERS: ADMIT Family Medicine; ATTEND Internal Medicine
DX: R07.89 Other chest pain (principal); I25.10 Atherosclerotic heart disease of native coronary artery without angina pectoris; I48.91 Unspecified atrial fibrillation; I10 Essential (primary) hypertension; E11.9 Type 2 diabetes mellitus without complications; G47.33 Obstructive sleep apnea (adult) (pediatric); E03.9 Hypothyroidism, unspecified; Z79.01 Long term (current) use of anticoagulants; Z87.820 Personal history of traumatic brain injury; Z87.440 Personal history of urinary (tract) infections; Z89.421 Acquired absence of other right toe(s); Z94.0 Kidney transplant status; Z95.0 Presence of cardiac pacemaker; Z95.1 Presence of aortocoronary bypass graft
CPT/HCPCS: 71020; 93005; 99285; G0378

== ENCOUNTER 2017-02-28 14:56 | Emergency (ER) | payer OTHER ==
--- NOTE | 2017-02-28 16:01 | EDPHY ---
H & P Stated Complaint: uti(see report 5/) referral for ivabx/pt inr elevated Time Seen by Provider: 02/28/17 15:03 HPI/ROS: CHIEF COMPLAINT: Urinary tract infection HISTORY OF PRESENT ILLNESS: The patient is a 71-year-old man who is status post kidney transplant on chronic immunosuppressants as well as diabetes with frequent urinary tract infections, chronic urinary retention with self catheterization and Pseudomonas colonization of his urine. He is followed closely by [facility]. His states that he started having cloudy foul-smelling urine several days ago. He has not been febrile. He had a urine culture taken that resulted today with E coli resistant to most oral antibiotics other than Macrobid. Dr. Addison from [place] suggested he come here for IV antibiotics. REVIEW OF SYSTEMS: Constitutional: denies: chills, fever, recent illness, recent injury EENTM: denies: blurred vision, double vision, nose congestion Respiratory: denies: cough, shortness of breath Cardiac: denies: chest pain, irregular heart rate, lightheadedness, palpitations Gastrointestinal/Abdominal: denies: abdominal pain, diarrhea, nausea, vomiting, blood streaked stools Genitourinary: See HPI Musculoskeletal: denies: joint pain, muscle pain Skin: denies: lesions, rash, jaundice, bruising Neurological: denies: headache, numbness, paresthesia, tingling, dizziness, weakness Hematologic/Lymphatic: denies: blood clots, easy bleeding, easy bruising Immunologic/allergic: denies: HIV/AIDS, transplant EXAM: GENERAL: Well-appearing, well-nourished and in no acute distress. HEAD: Atraumatic, normocephalic. EYES: Pupils equal round and reactive to light, extraocular movements intact, sclera anicteric, conjunctiva are normal. ENT: TMs normal, nares patent, oropharynx clear without exudates. Moist mucous membranes. NECK: Normal range of motion, supple without lymphadenopathy or JVD. LUNGS: Breath sounds clear to auscultation bilaterally and equal. No wheezes rales or rhonchi. HEART: Regular rate and rhythm without murmurs, rubs or gallops. ABDOMEN: Soft, nontender, normoactive bowel sounds. No guarding, no rebound. No masses appreciated. BACK: No CVA tenderness, no spinal tenderness, step-offs or deformities EXTREMITIES: Normal range of motion, no pitting or edema. No clubbing or cyanosis. NEUROLOGICAL: Cranial nerves II through XII grossly intact. Normal speech, normal gait. 5/5 strength, normal movement in all extremities, normal sensation PSYCH: Normal mood, normal affect. SKIN: Warm, dry, normal turgor, no visible rashes or lesions. Source: Patient Exam Limitations: No limitations - Personal History Current Tetanus/Diphtheria Vaccine: Yes Tetanus Vaccine Date: 2011 - Medical/Surgical History Hx Asthma: No Hx Chronic Respiratory Disease: No Hx Diabetes: Yes Hx Cardiac Disease: Yes Hx Renal Disease: Yes Hx Cirrhosis: No Hx Alcoholism: No Hx HIV/AIDS: No Hx Splenectomy or Spleen Trauma: No Other PMH: hypothyroid, pacemaker 2012, cardioversion, HTN, kidney transplant, Afib. uti. CVA. CABG - Family History Significant Family History: No pertinent family hx - Social History Smoking Status: Never smoked Alcohol Use: Sober Drug Use: None Constitutional: Initial Vital Signs Temperature (C) 36.3 C 02/28/17 15:03 Heart Rate 78 02/28/17 15:03 Respiratory Rate 20 02/28/17 15:03 Blood Pressure 121/86 H 02/28/17 15:03 O2 Sat (%) 99 02/28/17 15:03 O2 Delivery Mode Room Air Allergies/Adverse Reactions: No Known Allergies Allergy (Verified 02/28/17 15:01) Home Medications: Medication Instructions Recorded Amiodarone HCl [Pacerone (*)] 200 mg PO DAILY 02/11/17 Aspirin [Aspirin 81mg (*)] 81 mg PO DAILY 02/11/17 Atorvastatin Calcium [Lipitor 40 40 mg PO HS 02/11/17 mg (*)] Furosemide [Lasix 20 MG (*)] 10 mg PO DAILY 02/11/17 Insulin Pump, Patient Own 1 ea [facility] AD 02/11/17 Latanoprost 0.005% [Xalatan 0.005% 1 drops EACHEYE HS 02/11/17 (*)] Levothyroxine [Synthroid 50 mcg 50 mcg PO DAILY 02/11/17 (*)] Metoprolol Tartrate [Lopressor 25 25 mg PO BID 02/11/17 mg (*)] Mycophenolate Mofetil [Cellcept] 750 mg PO BID 02/11/17 Quinapril HCl [Accupril 5 mg] 5 mg PO HS 02/11/17 Tacrolimus Anhydrous [Prograf 0.5 1.5 mg PO BID 02/11/17 MG (*)] Timolol 0.5% [TIMOPTIC 0.5% (*)] 1 drops LEFTEYE DAILY 02/11/17 Warfarin Sodium [Coumadin 2.5MG 2.5 mg PO SUTUWETHSA 02/11/17 (*)] Warfarin Sodium [Coumadin 5MG (*)] 5 mg PO MOFR 02/11/17 predniSONE 5 mg PO DAILY 02/11/17 Prograf 02/28/17 Medical Decision Making ED Course/Re-evaluation: I spoke with Dr. Addison. She is requesting lab work and blood cultures and IV Invanz. She will speak with the transfusion center to see if they can continue the treatment tomorrow as an outpatient. The patient is well appearing and does not appear sepsis. He does not meet SIRS criteria. I discussed the case again with Dr. Addison. We agreed on outpatient treatment and follow-up in the infusion center tomorrow at 4:15. Patient and are happy with this plan. Differential Diagnosis: Partial list of the Differential diagnosis considered include but were not limited to; urinary tract infection, sepsis and although unlikely based on the history and physical exam, I also considered pneumonia, endocarditis. I discussed these differential diagnoses and the plan with the patient as well as the usual and expected course. The patient understands that the diagnosis is provisional and that in medicine we are not always correct and that further workup is often warranted. Usual and customary warnings were given. All of the patient's questions were answered. The patient was instructed to return to the emergency department should the symptoms at all worsen or return, otherwise to followup with the physician as we discussed. - Data Points Laboratory Results: Laboratory Results 02/28/17 15:20 02/28/17 15:20 02/28/17 02/28/17 15:20 15:20 WBC 8.65 10^3/uL 10^3/uL (3.80-9.50) RBC 4.62 10^6/uL 10^6/uL (4.40-6.38) Hgb 13.5 g/dL L g/dL (13.7-17.5) Hct 43.8 % % (40.0-51.0) MCV 94.8 fL fL (81.5-99.8) MCH 29.2 pg pg (27.9-34.1) MCHC 30.8 g/dL L g/dL (32.4-36.7) RDW 13.2 % % (11.5-15.2) Plt Count 218 10^3/uL 10^3/uL (150-400) MPV 9.9 fL fL (8.7-11.7) Neut % (Auto) 86.1 % H % (39.3-74.2) Lymph % (Auto) 6.2 % L % (15.0-45.0) Dawson % (Auto) 6.2 % % (4.5-13.0) Eos % (Auto) 0.5 % L % (0.6-7.6) Baso % (Auto) 0.3 % % (0.3-1.7) Nucleat RBC Rel Count 0.0 % % (0.0-0.2) Absolute Neuts (auto) 7.44 10^3/uL H 10^3/uL (1.70-6.50) Absolute Lymphs (auto) 0.54 10^3/uL L 10^3/uL (1.00-3.00) Absolute Monos (auto) 0.54 10^3/uL 10^3/uL (0.30-0.80) Absolute Eos (auto) 0.04 10^3/uL 10^3/uL (0.03-0.40) Absolute Basos (auto) 0.03 10^3/uL 10^3/uL (0.02-0.10) Absolute Nucleated RBC 0.00 10^3/uL 10^3/uL (0-0.01) Immature Gran % 0.7 % % (0.0-1.1) Immature Gran # 0.06 10^3/uL 10^3/uL (0.00-0.10) Sodium 134 mEq/L mEq/L (134-144) Potassium 4.6 mEq/L mEq/L (3.5-5.2) Chloride 100 mEq/L mEq/L (97-110) Carbon Dioxide 24 mEq/l mEq/l (22-31) Anion Gap 10 mEq/L mEq/L (8-16) BUN 37 mg/dL H mg/dL (7-23) Creatinine 1.9 mg/dL H mg/dL (0.7-1.3) Estimated GFR 35 Glucose 237 mg/dL H mg/dL (70-100) Calcium 8.9 mg/dL mg/dL (8.5-10.4) Medications Given: Discontinued Medications Sodium Chloride (Ns) 1,000 mls @ 0 mls/hr IV ONCE ONE PRN Reason: Wide Open Stop: 02/28/17 16:09 Last Admin: 02/28/17 16:11 Dose: 1,000 mls Ertapenem 1 gm/ Sodium (Chloride) 100 mls @ 200 mls/hr IV EDNOW ONE PRN Reason: Protocol Stop: 02/28/17 16:36 Last Admin: 02/28/17 16:49 Dose: 100 mls Departure - Departure Disposition: Home, Routine, Self-Care Clinical Impression: Urinary tract infection Qualifiers: Urinary tract infection type: acute cystitis Hematuria presence: without hematuria Qualified Code(s): N30.00 - Acute cystitis without hematuria Condition: Fair Instructions: Urinary Tract Infection in Men (ED) Additional Instructions: Return to the infusion center tomorrow at 4:15 p.m.. Referrals: Mega Leroy MD [Primary Care Provider] - As per Instructions
[2017-02-28] MEDS ORDERED: ERTAPENEM 1 GM in NS 100 ML IV ONE (16:07)
[2017-02-28] MEDS ORDERED: NS 1,000 ML IV ONE (16:08)
[2017-02-28 16:13] LABS: % IMMATURE GRANULYOCYTES 0.7 % (0.0-1.1); ABSOLUTE IMMATURE GRANULOCYTES 0.06 10^3/uL (0.00-0.10); ADD DIFF? NO; ADD MORPH? NO; ADD SCAN? NO; ATYPICAL LYMPHOCYTE FLAG 0 (0-99); FRAGMENT RBC FLAG 0 (0-99); HEMATOCRIT 43.8 % (40.0-51.0); HEMOGLOBIN 13.5 g/dL (13.7-17.5); LEFT SHIFT FLG 0 (0-99); LIPEMIA HEMOLYSIS FLAG 80 (0-99); MEAN CELL HEMOGLOBIN 29.2 pg (27.9-34.1); MEAN CELL HEMOGLOBIN CONCENTR. 30.8 g/dL (32.4-36.7); MEAN CELL VOLUME 94.8 fL (81.5-99.8); MEAN PLATELET VOLUME 9.9 fL (8.7-11.7); PLATELET CLUMPS FLAG 10 (0-99); PLATELET COUNT 218 10^3/uL (150-400); RED BLOOD CELL COUNT 4.62 10^6/uL (4.40-6.38); RED CELL DISTRIBUTION WIDTH 13.2 % (11.5-15.2)
[2017-02-28 16:42] LABS: ANION GAP 10 mEq/L (8-16); CALCIUM 8.9 mg/dL (8.5-10.4); CARBON DIOXIDE 24 mEq/l (22-31); CHLORIDE 100 mEq/L (97-110); CREATININE 1.9 mg/dL (0.7-1.3); GLOMERULAR FILTRATION RATE 35; GLUCOSE 237 mg/dL (70-100); POTASSIUM 4.6 mEq/L (3.5-5.2); SODIUM 134 mEq/L (134-144)
[2017-02-28 18:04] VITALS: BP 144/76; PULSE 81; RESP 16; TEMP 97.7; O2SAT 95
== END 2017-02-28 18:04 | disposition home or self-care (01) ==
DX: N30.00 Acute cystitis without hematuria (principal); B96.89 Other specified bacterial agents as the cause of diseases classified elsewhere; I10 Essential (primary) hypertension; E11.9 Type 2 diabetes mellitus without complications; Z79.01 Long term (current) use of anticoagulants; Z79.4 Long term (current) use of insulin; Z79.82 Long term (current) use of aspirin; Z95.0 Presence of cardiac pacemaker; Z95.1 Presence of aortocoronary bypass graft; Z86.73 Personal history of transient ischemic attack (TIA), and cerebral infarction without residual deficits
CPT/HCPCS: 96361; 96365; 99284; J1335

== ENCOUNTER 2017-06-30 14:18 | Inpatient (IN) | payer OTHER ==
--- NOTE | 2017-06-30 14:33 | CPEKG ---
Heart Rate: 88 RR Interval: 682 P-R Interval: 120 QRSD Interval: 114 QT Interval: 428 QTC Interval: 518 P Wilmar: 0 QRS Wilmar: 138 T Wave Wilmar: 236 EKG Severity - ABNORMAL ECG - EKG Impression: ATRIAL-PACED COMPLEXES EKG Impression: NONSPECIFIC INTRAVENTRICULAR CONDUCTION DELAY EKG Impression: BORDERLINE R WAVE PROGRESSION, ANTERIOR LEADS EKG Impression: ST DEPRESSION, CONSIDER ISCHEMIA, ANT-LAT LDS Electronically Signed By: Lul Genao 02-Jul-2017 07:29:35
[2017-06-30 14:43] LABS: % IMMATURE GRANULYOCYTES 0.7 % (0.0-1.1); ABSOLUTE IMMATURE GRANULOCYTES 0.05 10^3/uL (0.00-0.10); ADD DIFF? NO; ADD MORPH? NO; ADD SCAN? NO; ATYPICAL LYMPHOCYTE FLAG 0 (0-99); FRAGMENT RBC FLAG 0 (0-99); HEMATOCRIT 42.6 % (40.0-51.0); HEMOGLOBIN 13.3 g/dL (13.7-17.5); LEFT SHIFT FLG 0 (0-99); LIPEMIA HEMOLYSIS FLAG 80 (0-99); MEAN CELL HEMOGLOBIN 29.2 pg (27.9-34.1); MEAN CELL HEMOGLOBIN CONCENTR. 31.2 g/dL (32.4-36.7); MEAN CELL VOLUME 93.4 fL (81.5-99.8); MEAN PLATELET VOLUME 10.1 fL (8.7-11.7); PLATELET CLUMPS FLAG 10 (0-99); PLATELET COUNT 213 10^3/uL (150-400); RED BLOOD CELL COUNT 4.56 10^6/uL (4.40-6.38); RED CELL DISTRIBUTION WIDTH 13.2 % (11.5-15.2)
--- NOTE | 2017-06-30 14:51 | EDPHY ---
H & P Stated Complaint: hypoxia, recent falls, right side rib pain Source: Patient, Family - Personal History Current Tetanus Diphtheria and Acellular Pertussis (TDAP): Yes Tetanus Vaccine Date: 2011 - Medical/Surgical History Hx Asthma: No Hx Chronic Respiratory Disease: No Hx Diabetes: Yes Hx Cardiac Disease: Yes Hx Renal Disease: Yes Hx Cirrhosis: No Hx Alcoholism: No Hx HIV/AIDS: No Hx Splenectomy or Spleen Trauma: No Other PMH: hypothyroid, pacemaker 2012, cardioversion, HTN, kidney transplant, Afib, aflutter, diabetes. uti. CVA-2010. CABG - Social History Smoking Status: Never smoked Time Seen by Provider: 06/30/17 14:27 HPI/ROS: CHIEF COMPLAINT: Falls and confusion History by patient HISTORY OF PRESENT ILLNESS: 71-year-old man with a history of mild dementia the on Coumadin for atrial fibrillation and status post renal transplant presents brought in by his because of multiple falls in the last 2 days as well as some increased confusion and fatigue. Patient apparently fell trying to transfer bed to wheelchair striking his right ribs on the side of bed. He has complained of some ongoing pain on that side of his chest. He has had 1 episode of vomiting in the past 24 hours. He has had a decreased appetite. He had a 2nd fall when trying to get out of the car where he landed in a seated position striking his tailbone and he has complained of tailbone pain as well. Today they had lunch with his brother who is a physician who thought he looked pale and unwell and advised them to come in. Patient's noticed that his oxygen saturation was 85% on room air at home. The patient normally only wears oxygen at night and is in the low 90s during the day. There has been no fever. On arrival here the patient has no specific complaints. REVIEW OF SYSTEMS: Limited by the patient's dementia. (Laura Narayanan) - Physical Exam Exam: General Appearance: Alert, pleasant, nontoxic. Eyes: Pupils equal and round mild conduct a full pallor, no injection. ENT, Mouth: Mucous membranes moist. Respiratory: Normal, effort, lungs are clear to auscultation. No wheezes, rales or rhonchi. Cardiovascular: IrRegular rate and rhythm. S1, S2, no murmurs, gallops or rubs appreciated, positive right-sided chest wall tenderness and multiple ecchymoses Gastrointestinal: Abdomen is soft and mild right upper quadrant tender, no masses, bowel sounds normal. Back: No CVA tenderness, no bony tenderness Neurological: Awake, alert and oriented x 3, no pronator drift, normal gait, no pronator drift Skin: Multiple ecchymoses Musculoskeletal: No deformities or tenderness. Extremitie:s full range of motion, pale, trees edema Psychiatric: Patient has normal affect, there is no agitation. (Laura Narayanan) Constitutional: Initial Vital Signs Temperature (C) 36.9 C 06/30/17 14:27 Heart Rate 89 06/30/17 14:27 Respiratory Rate 18 06/30/17 14: Blood Pressure 115/84 H 06/30/17 14: O2 Sat (%) 87 L 06/30/17 14:27 O2 Delivery Mode Nasal Cannula O2 (L/minute) 2 Allergies/Adverse Reactions: No Known Allergies Allergy (Verified 02/28/17 15:01) Home Medications: Medication Instructions Recorded Amiodarone HCl [Pacerone (*)] 200 mg PO HS 02/11/17 Atorvastatin Calcium [Lipitor 40 40 mg PO HS 02/11/17 mg (*)] Furosemide [Lasix 20 MG (*)] 10 mg PO DAILY 02/11/17 Insulin Pump, Patient Own 1 ea MISC AD 02/11/17 Latanoprost 0.005% [Xalatan 0.005% 1 drops EACHEYE HS 02/11/17 (*)] Levothyroxine [Synthroid 50 mcg 50 mcg PO DAILY 02/11/17 (*)] Metoprolol Tartrate [Lopressor 25 25 mg PO BID 02/11/17 mg (*)] Mycophenolate Mofetil [Cellcept] 750 mg PO BID 02/11/17 Quinapril HCl [Accupril 5 mg] 5 mg PO HS 02/11/17 Tacrolimus Anhydrous [Prograf 0.5 1.5 mg PO BID 02/11/17 MG (*)] Timolol 0.5% [TIMOPTIC 0.5% (*)] 1 drops LEFTEYE BID 02/11/17 predniSONE 5 mg PO DAILY 02/11/17 Aspirin EC [Aspirin EC 81 mg (*)] 81 mg PO DAILY 06/30/17 Warfarin Sodium [Coumadin 2.5MG 2.5 mg PO MOTUTHFRSA@16 06/30/17 (*)] Medical Decision Making - Diagnostics Imaging Results: CT head is negative for acute pathology. He has got some mild hydrocephalus. This has been seen on prior studies. CT chest abdomen and pelvis, big heart noted, calcified aorta, old rib fractures on the right, old L1 compression fracture. No pneumothorax. No free fluid. Results were discussed with staff radiologist Dr. Jc Juarez. (Earl Barclay) ED Course/Re-evaluation: I took over care of this patient at 3:00 p.m.. We are waiting results of CT scans of the head, chest abdomen and pelvis without contrast to evaluate for trauma. Patient presents as noted above with history of increased confusion and frequent falling. Blood work reviewed. Troponin noted to be elevated at 0.075. He denies any chest pain. His EKG was reviewed by myself. His initial serum glucose on basic metabolic panel is 458. He is not acidotic. He uses an insulin pump. Vital signs reviewed and are normal. Patient afebrile. On 2 L nasal cannula oxygen, pulse oximetry is in the mid 90s. 3:45 p.m., patient re-evaluated. Discussed results of laboratory work with his and with him. Discussed results of CT scans. Patient started on 1 g of IV ceftriaxone. Urinalysis showed some white cells and bacteria. His states that he does become more confused when he has a urinary tract infection. Patient does self catheterization. Discussed admission to our hospitalist service for further evaluation. Both he and his endorse. 3:55 p.m., spoke with on-call hospitalist Dr. Donna Gonzalez. Case discussed in detail with her. She accepts this patient for admission. Repeat serum glucose at 4:50 p.m. was 515. Patient started on IV normal saline with 500 cc to be given over the next half an hour. He has been taking oral fluids well in the emergency department. He was also given 5 units of IV regular insulin. Hospitalist is aware of hyperglycemia. The patient's remaining emergency department course under my care has been uneventful. The patient was transferred by ambulance from our facility in stable and improved condition. (Earl Barclay) 71-year-old male with a history of dementia, renal transplant and atrial fibrillation on Coumadin presents with low oxygen saturation, increased confusion and evidence of chest trauma. Patient is hemodynamically stable. His oxygen saturation improved when placed on supplemental oxygen at 2 L. labs have been ordered. ECG showed atrial pacing and t -wave inversions, but unchanged from prior. CXR is pending. Plan will be for head CT, chest and abdominal and pelvis CT to evaluate for rib fractures, pneumothorax, intra- abdominal bleeding and head trauma as source of the patient's frequent falls. I will transfer care to Dr. Barclay pending results of the labs and CT imaging. (Laura Narayanan) - Data Points Laboratory Results: Laboratory Results 06/30/17 14:30 06/30/17 14:30 Medications Given: Amiodarone HCl (Amiodarone Hcl) 200 mg PO HS RADHA Stop: 12/27/17 20:59 Last Admin: 06/30/17 22:31 Dose: 200 mg Atorvastatin Calcium (Lipitor) 40 mg PO HS RADHA Stop: 12/27/17 20:59 Last Admin: 06/30/17 22:30 Dose: 40 mg Sodium Chloride (Ns) 1,000 mls @ 500 mls/hr IV CONT RADHA Stop: 12/28/17 02:44 Last Admin: 07/01/17 02:57 Dose: 1,000 mls Latanoprost (Xalatan 0.005%) 1 drops EACHEYE HS RADHA Stop: 12/27/17 20:59 Last Admin: 06/30/17 23:39 Dose: 1 drop Lisinopril (Zestril) 5 mg PO HS RADHA Stop: 12/27/17 20:59 Last Admin: 06/30/17 22:30 Dose: 5 mg Metoprolol Tartrate (Lopressor) 25 mg PO BID RADHA Stop: 12/27/17 20:59 Last Admin: 06/30/17 22:30 Dose: 25 mg Mycophenolate Mofetil (Cellcept) 750 mg PO BID RADHA Stop: 12/27/17 20:59 Last Admin: 06/30/17 22:31 Dose: 750 mg Tacrolimus (Prograf) 1.5 mg PO BID RADHA Stop: 12/27/17 20:59 Last Admin: 06/30/17 22:31 Dose: 1.5 mg Timolol Maleate (Timoptic 0.5%) 1 drops LEFTEYE BID RADHA Stop: 12/27/17 20:59 Last Admin: 06/30/17 23:39 Dose: 1 drop Warfarin Sodium (Coumadin) 2.5 mg PO MOTUTHFRSA@16 [facility] Stop: 12/27/17 23:44 Last Admin: 06/30/17 23:50 Dose: 2.5 mg Discontinued Medications Ceftriaxone Sodium/Dextrose (Rocephin 1 Gm (Premix)) 50 mls @ 100 mls/hr IV EDNOW ONE PRN Reason: Protocol Stop: 06/30/17 16:10 Last Admin: 06/30/17 15:58 Dose: 50 mls Sodium Chloride (Ns) 500 mls @ 0 mls/hr IV ONCE ONE PRN Reason: Wide Open Stop: 06/30/17 17:07 Last Admin: 06/30/17 17:12 Dose: 500 mls Cefepime HCl 1 gm/ Dextrose 50 mls @ 100 mls/hr IV Q8H RADHA PRN Reason: Protocol Stop: 07/30/17 20:59 Last Admin: 06/30/17 22:32 Dose: 50 mls Insulin Human Regular (Humulin R) 5 unit IVP ONCE ONE Stop: 06/30/17 17:07 Last Admin: 06/30/17 17:13 Dose: 5 units Insulin Human Regular (Humulin R) 10 unit SC ONCE ONE Stop: 06/30/17 23:03 Last Admin: 06/30/17 23:40 Dose: 10 units Insulin Human Regular (Humulin R) 10 unit SC ONCE ONE Stop: 07/01/17 02:42 Last Admin: 07/01/17 02:56 Dose: 10 units Warfarin Sodium (Coumadin) 2.5 mg PO MOTUTHFRSA@16 [facility] Stop: 12/27/17 21:14 Last Admin: 07/01/17 00:11 Dose: Not Given Departure - Departure Disposition: [facility] Acute Clinical Impression: Hyperglycemia, Dementia, History of frequent falls, Hypoxia, Chronic renal insufficiency, Elevated troponin
[2017-06-30 14:56] LABS: ALANINE AMINOTRANSFERASE 100 IU/L (21-72); ALBUMIN 3.7 g/dL (3.5-5.0); ALKALINE PHOSPHATASE 176 IU/L (38-126); ANION GAP 9 mEq/L (8-16); ASPARTATE AMINOTRANSFERASE 35 IU/L (17-59); BILIRUBIN,TOTAL 1.2 mg/dL (0.1-1.4); BILIRUBIN-CONJUGATED 0.6 mg/dL (0.0-0.5); BILIRUBIN-UNCONJUGATED 0.6 mg/dL (0.0-1.1); CALCIUM 8.5 mg/dL (8.5-10.4); CARBON DIOXIDE 25 mEq/l (22-31); CHLORIDE 95 mEq/L (97-110); CREATININE 1.7 mg/dL (0.7-1.3); GLOMERULAR FILTRATION RATE 40; GLUCOSE 458 mg/dL (70-100); POTASSIUM 4.9 mEq/L (3.5-5.2); SODIUM 129 mEq/L (134-144); TOTAL PROTEIN 5.9 g/dL (6.3-8.2)
[2017-06-30] MEDS ORDERED: IOPAMIDOL (ISOVUE-300) 100 ML BTL ONE (15:00)
[2017-06-30 15:02] LABS: INR 1.85 (0.83-1.16); PROTIME(PATIENT) 21.1 SEC (12.0-15.0)
[2017-06-30 15:11] LABS: COLOR YELLOW; LEUKOCYTE ESTERASE,URINE NEGATIVE (NEGATIVE); NITRITE,URINE NEGATIVE (NEGATIVE)
[2017-06-30 15:11] LABS: TROPONIN I 0.075 ng/mL (0.000-0.034)
[2017-06-30 15:31] LABS: WBC,URINE 25-50 /hpf (0-3)
[2017-06-30 15:32] LABS: BACTERIA 2+ /hpf (NONE SEEN)
--- NOTE | 2017-06-30 16:49 | PDGENHP ---
History and Physical - Chief Complaint confusion, falls - History of Present Illness 71 yo male with h/o dementia, A fib, CAD, DM, and prior CVA presents to [facility] with confusion and increased falls. He lives at home with his , who notes he is falling more frequently. He is mostly wheelchair bound. She performs straight cath's on him twice to three times daily for chronic urinary retention due to neurogenic bladder. He has a h/o recurrent UTI's. His notes he tends to get more confused when he has a UTI. He has an insulin pump for his type 1 diabetes and is followed by Dr. Younger. However, his manages his pump. Interestingly, she has no idea what his basal insulin rate is. Recently, they have had difficulty controlling his blood sugars. In the ED, an abnormal UA was noted and he was given IV Ceftriaxone. CT of his head, chest, abdomen and pelvis was performed due to his fall and showed no acute injuries though he does have some bruising of the rib cage. Given his confusion and increased falls, he is admitted to the hospital for further evaluation. History Information - Allergies/Home Medication List Allergies/Adverse Reactions: No Known Allergies Allergy (Verified 02/28/17 15:01) Home Medications: RX: Amiodarone HCl [Pacerone (*)] 200 mg PO HS 02/11/17 [Last Taken 06/29/17] RX: Atorvastatin Calcium [Lipitor 40 mg (*)] 40 mg PO HS 02/11/17 [Last Taken ] RX: Furosemide [Lasix 20 MG (*)] 10 mg PO DAILY 02/11/17 [Last Taken 06/30/17] RX: Insulin Pump, Patient Own 1 ea [facility] [place] 02/11/17 [Last Taken Unknown] RX: Latanoprost 0.005% [Xalatan 0.005% (*)] 1 drops EACHEYE HS 02/11/17 [Last Taken 06/29/17] RX: Levothyroxine [Synthroid 50 mcg (*)] 50 mcg PO DAILY 02/11/17 [Last Taken ] RX: Metoprolol Tartrate [Lopressor 25 mg (*)] 25 mg PO BID 02/11/17 [Last Taken 06/30/17] RX: Mycophenolate Mofetil [Cellcept] 750 mg PO BID 02/11/17 [Last Taken 02/11/17 ] RX: Quinapril HCl [Accupril 5 mg] 5 mg PO HS 02/11/17 [Last Taken 06/29/17] RX: Tacrolimus Anhydrous [Prograf 0.5 MG (*)] 1.5 mg PO BID 02/11/17 [Last Taken 06/30/17] RX: Timolol 0.5% [TIMOPTIC 0.5% (*)] 1 drops LEFTEYE BID 02/11/17 [Last Taken ] RX: predniSONE 5 mg PO DAILY 02/11/17 [Last Taken 06/30/17] Aspirin EC [Aspirin EC 81 mg (*)] 81 mg PO DAILY 06/30/17 [Last Taken 06/30/17] Warfarin Sodium [Coumadin 2.5MG (*)] 2.5 mg PO KELSEYUTHFR@16 06/30/17 [Last Taken 06/29/17] I have personally reviewed and updated: family history, medical history, social history, surgical history - Past Medical History atrial fibrillation, coronary artery disease, CHF, CVA, dementia, diabetes type 1, hypertension, recurrent UTI Additional medical history: CAD s/p 5v CABG, hypothyroidism, recurrent UTI's with pseudomonal colonization, left renal transplant secondary to diabetic nephropathy, A fib on coumadin, LUCINDA - Surgical History Reports: coronary bypass surgery, pacemaker/AICD Additional surgical history: Renal transplant, left arm ORIF, right great toe amputation - Family History Positive for: non-pertinent - Social History Smoking Status: Never smoked Alcohol Use: None Drug Use: None Additional social history: Lives at home with his . Wheelchair bound. Review of Systems Review of Systems: ROS: 10pt was reviewed & negative except for what was stated in HPI & below Physical Exam Physical Exam: Temp Pulse Resp BP Pulse Ox 36.9 C 83 18 143/89 H 98 06/30/17 14:27 06/30/17 16:08 06/30/17 16:08 06/30/17 16:08 06/30/17 16:08 O2 (L/minute) 2 Constitutional: no apparent distress Eyes: PERRL Ears, Nose, Mouth, Throat: moist mucous membranes Cardiovascular: regular rate and rhythym Respiratory: no respiratory distress, clear to auscultation Gastrointestinal: normoactive bowel sounds, soft, non-tender abdomen Skin: warm Musculoskeletal: generalized weakness Psychiatric: interacting appropriately, poor insight, poor memory Lab Data & Imaging Review 07/01/17 05:05 07/01/17 05:05 WBC 6.75 10^3/uL (3.80-9.50) 06/30/17 14:30 RBC 4.56 10^6/uL (4.40-6.38) 06/30/17 14:30 Hgb 13.3 g/dL (13.7-17.5) L 06/30/17 14:30 Hct 42.6 % (40.0-51.0) 06/30/17 14:30 MCV 93.4 fL (81.5-99.8) 06/30/17 14:30 MCH 29.2 pg (27.9-34.1) 06/30/17 14:30 MCHC 31.2 g/dL (32.4-36.7) L 06/30/17 14:30 RDW 13.2 % (11.5-15.2) 06/30/17 14:30 Plt Count 213 10^3/uL (150-400) 06/30/17 14:30 MPV 10.1 fL (8.7-11.7) 06/30/17 14:30 Neut % (Auto) 87.5 % (39.3-74.2) H 06/30/17 14:30 Lymph % (Auto) 5.8 % (15.0-45.0) L 06/30/17 14:30 [place] % (Auto) 5.0 % (4.5-13.0) 06/30/17 14:30 Eos % (Auto) 0.7 % (0.6-7.6) 06/30/17 14:30 Baso % (Auto) 0.3 % (0.3-1.7) 06/30/17 14:30 Nucleat RBC Rel Count 0.0 % (0.0-0.2) 06/30/17 14:30 Absolute Neuts (auto) 5.90 10^3/uL (1.70-6.50) 06/30/17 14:30 Absolute Lymphs (auto) 0.39 10^3/uL (1.00-3.00) L 06/30/17 14:30 Absolute Monos (auto) 0.34 10^3/uL (0.30-0.80) 06/30/17 14:30 Absolute Eos (auto) 0.05 10^3/uL (0.03-0.40) 06/30/17 14:30 Absolute Basos (auto) 0.02 10^3/uL (0.02-0.10) 06/30/17 14:30 Absolute Nucleated RBC 0.00 10^3/uL (0-0.01) 06/30/17 14:30 Immature Gran % 0.7 % (0.0-1.1) 06/30/17 14:30 Immature Gran # 0.05 10^3/uL (0.00-0.10) 06/30/17 14:30 PT 21.1 SEC (12.0-15.0) H 06/30/17 14:30 INR 1.85 (0.83-1.16) H 06/30/17 14:30 Sodium 129 mEq/L (134-144) L 06/30/17 14:30 Potassium 4.9 mEq/L (3.5-5.2) 06/30/17 14:30 Chloride 95 mEq/L (97-110) L 06/30/17 14:30 Carbon Dioxide 25 mEq/l (22-31) 06/30/17 14:30 Anion Gap 9 mEq/L (8-16) 06/30/17 14:30 BUN 31 mg/dL (7-23) H 06/30/17 14:30 Creatinine 1.7 mg/dL (0.7-1.3) H 06/30/17 14:30 Estimated GFR 40 06/30/17 14:30 Glucose 458 mg/dL (70-100) H 06/30/17 14:30 Calcium 8.5 mg/dL (8.5-10.4) 06/30/17 14:30 Total Bilirubin 1.2 mg/dL (0.1-1.4) 06/30/17 14:30 Conjugated Bilirubin 0.6 mg/dL (0.0-0.5) H 06/30/17 14:30 Unconjugated Bilirubin 0.6 mg/dL (0.0-1.1) 06/30/17 14:30 AST 35 IU/L (17-59) 06/30/17 14:30 ALT 100 IU/L (21-72) H 06/30/17 14:30 Alkaline Phosphatase 176 IU/L (38-126) H 06/30/17 14:30 Troponin I 0.075 ng/mL (0.000-0.034) H 06/30/17 14:30 Total Protein 5.9 g/dL (6.3-8.2) L 06/30/17 14:30 Albumin 3.7 g/dL (3.5-5.0) 06/30/17 14:30 Urine Color YELLOW 06/30/17 15:00 Urine Appearance HAZY 06/30/17 15:00 Urine pH 6.0 (5.0-7.5) 06/30/17 15:00 Ur Specific [place] <= 1.005 (1.002-1.030) 06/30/17 15:00 Urine Protein NEGATIVE (NEGATIVE) 06/30/17 15:00 Urine Ketones NEGATIVE (NEGATIVE) 06/30/17 15:00 Urine Blood TRACE (NEGATIVE) H 06/30/17 15:00 Urine Nitrate NEGATIVE (NEGATIVE) 06/30/17 15:00 Urine Bilirubin NEGATIVE (NEGATIVE) 06/30/17 15:00 Urine Urobilinogen 0.2 EU (0.2-1.0) 06/30/17 15:00 Ur Leukocyte Esterase NEGATIVE (NEGATIVE) 06/30/17 15:00 Urine RBC 1-3 /hpf (0-3) 06/30/17 15:00 Urine WBC 25-50 /hpf (0-3) H 06/30/17 15:00 Ur Epithelial Cells 1+ /lpf (NONE-1+) 06/30/17 15:00 Urine Bacteria 2+ /hpf (NONE SEEN) H 06/30/17 15:00 Urine Glucose 3+ (NEGATIVE) H 06/30/17 15:00 Assessment & Plan Assessment: 71 yo male with h/o dementia and multiple medical problems admitted with confusion and increased falls Acute encephalopathy in setting of chronic dementia - small change in baseline mentation. Query infectious etiology, UTI possible. Also consider medication related. Note he is on Tacrolimus for h/o renal transplant, though clinically not concerned for PRES. Hyperglycemia is also a potential cause of confusion. -Cont tx for UTI and follow UCx, will change to Cefepime based on recent culture data. -check tacrolimus level -minimize centrally acting / sedating medications -aim for glycemic control and follow mentation Frequent falls - w/u negative for acute injury. As above, considering infectious etiology or medication related or hyperglycemia induced. -PT/OT planned Type 1 DM with hyperglycemia - bg >450 on presentation, but no acidemia or anion gap. Unfortunately, he was advised at urgent care to discontinue his insulin pump prior to transfer to [facility] so has been without basal insulin for several hours. -stat BMP to ensure he is not developing DKA (CO2 and AG still nl) -resume home insulin pump and if unable to achieve glycemic control with his pump, may require insulin drip -will bolus 10 u regular insulin now -consider discussing case with Dr. Younger in am given their difficulty managing his pump Acute on chronic hypoxemic respiratory failure - presented with O2 sat in 80's on RA. He uses O2 at night, has h/o LUCINDA. Stable on [address] chest doesn't reveal infectious etiology, query hypoventilation. He has a nearly therapeutic INR and no pleuritic symptoms. -cont supplemental O2, wean as able A fib on coumadin - INR sub-therapeutic at 1.85. EKG shows paced rhythm. -pharm to dose coumadin -cont BB for rate control CAD s/p 5 v. CABG - pt presented with CP likely related to trauma from fall. No rib fractures identified though does have bruising in area of pain. EKG shows T wave inversions in anterolateral and inferior leads, unchanged from prior. Chronically elevated troponin noted. 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 CKD - Cr near baseline Diastolic heart failure - appears euvolemic. Cont home lasix dose. DVT PPLX - nearly therapeutic on coumadin, recheck INR in am Code status - Full code Dispo - inpt, expect >48 hrs hospitalization for ongoing evaluation and management of acute encephalopathy, possible UTI and frequent falls requiring acute PT/OT
[2017-06-30] MEDS ORDERED: INSULIN REGULAR HUMAN 100 UNIT/ML IVP ONE (17:06)
[2017-06-30] MEDS ORDERED: NS 500 ML IV ONE (17:06)
[2017-06-30] MEDS ORDERED: INSULIN REGULAR HUMAN 100 UNIT/ML ONE (17:09)
[2017-06-30] MEDS ORDERED: ACETAMINOPHEN 325 MG TAB PO PRN (20:37)
[2017-06-30] MEDS ORDERED: ONDANSETRON 4 MG/2 ML VIAL IVP PRN (20:37)
[2017-06-30] MEDS ORDERED: ONDANSETRON DISINTEGRATING 4 MG TAB PO PRN (20:37)
[2017-06-30] MEDS ORDERED: Insulin Pump, Patient Own MISC SCH (20:45)
[2017-06-30] MEDS ORDERED: CEFEPIME HCL 1 GM in D5W 50 ML IV SCH (21:00)
[2017-06-30] MEDS ORDERED: WARFARIN SODIUM 2.5 MG TAB PO SCH (21:15)
[2017-06-30 21:16] LABS: ANION GAP 10 mEq/L (8-16); CALCIUM 8.4 mg/dL (8.5-10.4); CARBON DIOXIDE 23 mEq/l (22-31); CHLORIDE 94 mEq/L (97-110); CREATININE 1.7 mg/dL (0.7-1.3); GLOMERULAR FILTRATION RATE 40; GLUCOSE 499 mg/dL (70-100); POTASSIUM 4.7 mEq/L (3.5-5.2); SODIUM 127 mEq/L (134-144)
[2017-06-30 21:25] LABS: TROPONIN I 0.055 ng/mL (0.000-0.034)
[2017-06-30] MEDS: METOPROLOL TARTRATE 25 MG TAB PO SCH (22:30)
[2017-06-30] MEDS: ATORVASTATIN CALCIUM 40 MG TAB PO SCH (22:30)
[2017-06-30] MEDS: LISINOPRIL 5 MG TAB PO SCH (22:30)
[2017-06-30] MEDS: TACROLIMUS ANHYDROUS 0.5 MG CAP PO SCH (22:31)
[2017-06-30] MEDS: AMIODARONE HCL 200 MG TAB PO SCH (22:31)
[2017-06-30] MEDS: MYCOPHENOLATE MOFETIL 250 MG CAP PO SCH (22:31)
[2017-06-30 22:59] LABS: HEMOGLOBIN A1C 8.9 % (4.0-6.0)
[2017-06-30] MEDS ORDERED: INSULIN REGULAR HUMAN 100 UNIT/ML SC ONE (23:02)
[2017-06-30] MEDS: TIMOLOL 0.5% 15 ML OPHT.BTL LEFTEYE SCH (23:39)
[2017-06-30] MEDS: LATANOPROST 0.005% 2.5 ML OPHT DROPS EACHEYE SCH (23:39)
[2017-06-30] MEDS: WARFARIN SODIUM 2.5 MG TAB PO SCH (23:50)
[2017-07-01] MEDS ORDERED: INSULIN REGULAR HUMAN 100 UNIT/ML SC ONE (02:41)
[2017-07-01] MEDS ORDERED: NS 1,000 ML IV SCH (02:45)
[2017-07-01 04:01] LABS: ANION GAP 7 mEq/L (8-16); CALCIUM 8.6 mg/dL (8.5-10.4); CARBON DIOXIDE 25 mEq/l (22-31); CHLORIDE 100 mEq/L (97-110); CREATININE 1.6 mg/dL (0.7-1.3); GLOMERULAR FILTRATION RATE 43; GLUCOSE 305 mg/dL (70-100); POTASSIUM 4.1 mEq/L (3.5-5.2); SODIUM 132 mEq/L (134-144)
[2017-07-01 05:39] LABS: ALANINE AMINOTRANSFERASE 85 IU/L (21-72); ALKALINE PHOSPHATASE 114 IU/L (38-126); ANION GAP 5 mEq/L (8-16); ASPARTATE AMINOTRANSFERASE 28 IU/L (17-59); BILIRUBIN,TOTAL 0.7 mg/dL (0.1-1.4); CALCIUM 8.6 mg/dL (8.5-10.4); CARBON DIOXIDE 28 mEq/l (22-31); CHLORIDE 101 mEq/L (97-110); CREATININE 1.7 mg/dL (0.7-1.3); GLOMERULAR FILTRATION RATE 40; GLUCOSE 162 mg/dL (70-100); POTASSIUM 3.8 mEq/L (3.5-5.2); SODIUM 134 mEq/L (134-144); TOTAL PROTEIN 5.2 g/dL (6.3-8.2)
[2017-07-01 05:46] LABS: % IMMATURE GRANULYOCYTES 0.5 % (0.0-1.1); ABSOLUTE IMMATURE GRANULOCYTES 0.03 10^3/uL (0.00-0.10); ADD DIFF? NO; ADD MORPH? NO; ADD SCAN? NO; ATYPICAL LYMPHOCYTE FLAG 0 (0-99); FRAGMENT RBC FLAG 0 (0-99); HEMATOCRIT 39.9 % (40.0-51.0); HEMOGLOBIN 12.4 g/dL (13.7-17.5); LEFT SHIFT FLG 0 (0-99); LIPEMIA HEMOLYSIS FLAG 80 (0-99); MEAN CELL HEMOGLOBIN 29.2 pg (27.9-34.1); MEAN CELL HEMOGLOBIN CONCENTR. 31.1 g/dL (32.4-36.7); MEAN CELL VOLUME 94.1 fL (81.5-99.8); MEAN PLATELET VOLUME 10.2 fL (8.7-11.7); PLATELET CLUMPS FLAG 0 (0-99); PLATELET COUNT 179 10^3/uL (150-400); RED BLOOD CELL COUNT 4.24 10^6/uL (4.40-6.38)
[2017-07-01 05:52] LABS: INR 2.02 (0.83-1.16)
[2017-07-01] MEDS: predniSONE 5 MG TAB PO SCH (08:51)
[2017-07-01] MEDS: FUROSEMIDE 20 MG TAB PO SCH (08:51)
[2017-07-01] MEDS: ASPIRIN EC 81 MG TAB PO SCH (08:51)
[2017-07-01] MEDS: MYCOPHENOLATE MOFETIL 250 MG CAP PO SCH ×2 (08:53→21:50)
[2017-07-01] MEDS: LEVOTHYROXINE 50 MCG TAB PO SCH (08:53)
[2017-07-01] MEDS: TACROLIMUS ANHYDROUS 0.5 MG CAP PO SCH ×2 (08:53→21:53)
[2017-07-01] MEDS: METOPROLOL TARTRATE 25 MG TAB PO SCH ×2 (08:54→21:52)
[2017-07-01] MEDS: TIMOLOL 0.5% 15 ML OPHT.BTL LEFTEYE SCH ×2 (08:57→21:54)
--- NOTE | 2017-07-01 10:41 | PCMIDPN ---
Assessment/Plan: Assessment/Plan: * Confusion and falls: Unclear if related to urinary tract infection which has been difficult to define as symptoms often nonspecific - however, has had episodes of pyelonephritis previously. Will continue cefepime in short term given prior isolation of E coli resistant to ceftriaxone as well as Pseudomonas on most recent cultures. Suspect may have other underlying etiology for presentation as recently completed course of Bactrim for UTI and patient's notes he was doing better. 07/01/17 10:36 Subjective: Patient well known to me from prior care related to post renal transplant with recurrent UTI. Patient admitted with 2 episodes of falls recently and confusion. Completed short course of Bactrim last week in association with cloudy urine. His notes that his urine cleared immediately. He has not experienced fever or chills. No nausea, vomiting or diarrhea. Did have pain over right flank where he fell on to his ribs. Has also experienced chronic ulceration of the right 2nd toe which has worsened recently when he scraped getting up from 1 of his falls. Otherwise this was noted to be healing well. No recent travel. Falls were associated with transfers to wheelchair. Most recent urine culture showed E coli which was ceftriaxone resistant and culture prior to that showed growth of Pseudomonas. Objective: Vital Signs Temp Pulse Resp BP Pulse Ox 36.5 C 72 18 126/77 H 92 07/01/17 07:12 07/01/17 07:12 07/01/17 07:12 07/01/17 07:12 07/01/17 08:01 Laboratory Results 07/01/17 05:05 07/01/17 05:05 06/30/17 07/01/17 07/02/17 05:59 05:59 05:59 Intake Total 800 Output Total 2200 Balance -1400 CT abdomen and pelvis without focal abnormality noted Urine culture pending - Physical Exam General Appearance: alert, no apparent distress EENT: pharynx normal, No scleral icterus, No conjunctival petechiae Respiratory: lungs clear, No respiratory distress Cardiac/Chest: regular rate, rhythm Extremities: other (Right 2nd toe with scabbed lesion medially without erythema or drainage) Abdomen: non-tender, No distended Skin: other (Ecchymoses over right lateral chest wall), No embolic lesions ICD10 Worksheet Patient Problems: Problems Problem Status Onset Chronic renal insufficiency Acute Dementia Acute ESBL (extended spectrum beta-lactamase) producing bacteria infection Acute ~08/04 Elevated troponin Acute Hyperglycemia Acute Hypoxia Acute Afib - Atrial fibrillation Active CAD - Coronary arteriosclerosis Active Chronic kidney disease stage 5 Active Diabetes mellitus type 1 Active History of - hypertension Active Tachycardia-bradycardia Active Chest pain Acute 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
--- NOTE | 2017-07-01 14:04 | WOCRNPDOC ---
WOCRN Advanced Assessment Note - Skin Integrity Problem, Advanced Assess Right Knee Abrasion Dressing Type: Open to Air Exudate Color: Brown Exudate Characteristic(s): Dried Ale Wound Tissue: Intact Ale Wound Swelling: None Wound Bed Color: Brown Wound Bed Constitution: Scab Site Odor: None Site Measurement - Head-to-Toe Length X Width X Depth (cm): 2.1cmx3.1cmx scab Skin Integrity Problem Comment: Abrasion r/t fall noted on R knee, presently dried and scabbed. No associated swelling or erythema, and ale-wound skin is intact. Wound RN does not need to follow this wound ongoing. Order written for wound gel and Allevyn until healed. Right Second Toe Diabetic Ulcer Dressing Type: Open to Air Exudate Amount: None Ale Wound Tissue: Calloused Ale Wound Swelling: None Wound Bed Color: Brown Wound Bed Constitution: Stable Eschar Wound Edges: Irregular Site Odor: None Site Measurement - Head-to-Toe Length X Width X Depth (cm): 2xmx1.5cmx eschar Skin Integrity Problem Comment: Wound with stable eschar noted to lateral aspect of R 2nd toe, no associated swelling or erythema observed, and no outwardindication of infection. Bony deformities noted throughout this extremity , including charcot foot and amputation of 1st great toe. Per patient's , patient is under the care of a civil engineering designer ongoing for this wound, and goal is palliative. No plans for debridement, as patient is type 1 diabetic and has h/o poor circulation to this foot. Will continue w/ topical applications of Betadine BID, which is what he has been doing in the outpatient setting. Wound care will f/u on this wound on Saturday 07/07. Left Lower Distal Leg Dressing Type: Open to Air Exudate Amount: None Ale Wound Tissue: Shiny, Thin, Dry Ale Wound Swelling: None Wound Bed Color: Brown Wound Bed Constitution: Scab Site Odor: None Site Measurement - Head-to-Toe Length X Width X Depth (cm): 1cmx0.2cmx scab Skin Integrity Problem Comment: Abrasion r/t fall noted on anterior aspect of LLE, presently dried and scabbed. No associated swelling or erythema; ale- wound skin is taut and shiny, presently intact. Wound RN does not need to follow this wound ongoing. Order written for wound gel and Allevyn until healed.
--- NOTE | 2017-07-01 15:59 | HOSPPROG ---
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 Amos Villegas. PLANS: -Continue current antibiotics, wait for cultures from urine - at this time will continue using his insulin pump with his basal rate and when his is here she can calculate his carbohydrates and give him bolus dosing. Otherwise will give him subcutaneous dosing to fit meals subcutaneously. 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: Exam: alert somewhat disoriented with poor memory (at his baseline) skin warm dry color ok resps not labored lungs clear BSs heart regular abd soft nondistended nontender, bowel sounds present limbs warm, no edema iv site ok Objective: Vital Signs Temp Pulse Resp BP Pulse Ox 36.6 C 71 18 126/82 H 92 07/01/17 15:16 07/01/17 15:16 07/01/17 15:16 07/01/17 15:16 07/01/17 15:16 Laboratory Results 07/01/17 05:05 07/01/17 05:05 06/30/17 07/01/17 07/02/17 06:59 06:59 06:59 Intake Total 800 Output Total 2200 510 Balance -1400 -510 PT 23.0 SEC (12.0-15.0) H 07/01/17 05:05 INR 2.02 (0.83-1.16) H 07/01/17 05:05 ICD10 Worksheet Patient Problems: Problems Problem Status Onset Chronic renal insufficiency Acute Dementia Acute ESBL (extended spectrum beta-lactamase) producing bacteria infection Acute ~08/04 Elevated troponin Acute Hyperglycemia Acute Hypoxia Acute Afib - Atrial fibrillation Active CAD - Coronary arteriosclerosis Active Chronic kidney disease stage 5 Active Diabetes mellitus type 1 Active History of - hypertension Active Tachycardia-bradycardia Active Chest pain Acute 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
[2017-07-01] MEDS ORDERED: WARFARIN SODIUM 2.5 MG TAB PO ONE (16:00)
--- NOTE | 2017-07-01 17:24 | ASMTCMCOM ---
CM Note CM Note Notes: Spoke w/ re; dc poc. Pt will need rehab before going home, talked to about [facility] but they do not take [employer] medicare, CM to discuss with about other snf options. Date Signed: 07/01/2017 05:23 PM Electronically Signed By:Jo-Ann Mckeon RN
[2017-07-01] MEDS: CEFEPIME HCL 1 GM in D5W 50 ML IV SCH (17:30)
[2017-07-01] MEDS: INSULIN LISPRO 100 UNIT/ML SC SCH ×2 (18:07)
[2017-07-01] MEDS: LISINOPRIL 5 MG TAB PO SCH (21:52)
[2017-07-01] MEDS: ATORVASTATIN CALCIUM 40 MG TAB PO SCH (21:52)
[2017-07-01] MEDS: AMIODARONE HCL 200 MG TAB PO SCH (21:53)
[2017-07-01] MEDS: LATANOPROST 0.005% 2.5 ML OPHT DROPS EACHEYE SCH (21:54)
[2017-07-01] MEDS ORDERED: CEFEPIME HCL 1 GM in D5W 50 ML IV SCH (22:00)
[2017-07-02 05:53] LABS: INR 2.32 (0.83-1.16); PROTIME(PATIENT) 25.7 SEC (12.0-15.0)
[2017-07-02] MEDS: INSULIN LISPRO 100 UNIT/ML SC SCH ×3 (08:43→17:19)
[2017-07-02] MEDS: ASPIRIN EC 81 MG TAB PO SCH (08:45)
[2017-07-02] MEDS: LEVOTHYROXINE 50 MCG TAB PO SCH (08:45)
[2017-07-02] MEDS: MYCOPHENOLATE MOFETIL 250 MG CAP PO SCH ×2 (08:45→21:44)
[2017-07-02] MEDS: FUROSEMIDE 20 MG TAB PO SCH (08:45)
[2017-07-02] MEDS: TACROLIMUS ANHYDROUS 0.5 MG CAP PO SCH ×2 (08:45→21:47)
[2017-07-02] MEDS: predniSONE 5 MG TAB PO SCH (08:45)
[2017-07-02] MEDS: METOPROLOL TARTRATE 25 MG TAB PO SCH ×2 (08:46→21:46)
[2017-07-02] MEDS: TIMOLOL 0.5% 15 ML OPHT.BTL LEFTEYE SCH ×2 (08:49→21:48)
--- NOTE | 2017-07-02 10:01 | HOSPPROG ---
Hospitalist Progress Note Assessment/Plan: DIAGNOSES: -Acute encephalopathy, w hx of dementia -Urinary tract infection, complicated, present on admission ( growing Pseudomonas from culture, but abx sens not done yet) -Chronic urinary retention with multiple daily straight cath interventions for drainage at home ; history of recurrent urinary tract infections -Diabetes mellitus type 1, poorly controlled chronically w HgA1 near 9 -uses pump at home; currently here using his pump for basal rate insuling ( 22.5 units per day); nurses are unable to give boluses by his pump here so giving boluses sub Q - so far I began with a somewhat lower dose than his usual to be certain to avoid hypoglycemic spells but he is running low 200s; he averages 18 units/24hrs of total premeal boluses at home, so I will increase his current subQ premeal dose from 4 to 6 units to match his home dose; might need a bit more. Dr Younger his meat grader is aware of pts admission, should continue close f/u w him on DC -acute worsening of chronic gait instability caused by presenting encephalopathy -History of dementia I reviewed reviewed the patient's case in detail with Dr. Filiberto Villegas. PLANS: -Continue current antibiotics, wait for cultures from urine -Diabetes management as above, will increase his premeal bolus from 4 to 6 units -Physical occupational therapy -will need ongoing inpt care due to unsafe gait instability and need for ongoing iv abx waiting on sensitivities SUBJECTIVE: states he feels much better no pain very weak eating OBJECTIVE Vitals reviewed: stable without fever Exam: alert somewhat disoriented with poor memory (at his baseline) skin warm dry color ok resps not labored lungs clear BSs heart regular abd soft nondistended nontender, bowel sounds present limbs warm, no edema iv site ok Objective: Vital Signs Temp Pulse Resp BP Pulse Ox 36.3 C 86 20 163/94 H 96 07/02/17 07:04 07/02/17 07:04 07/02/17 07:04 07/02/17 07:04 07/02/17 07:04 Laboratory Results 07/01/17 05:05 07/01/17 05:05 07/01/17 07/02/17 07/03/17 06:59 06:59 06:59 Intake Total 800 350 Output Total 2200 2785 Balance -1400 -2435 PT 25.7 SEC (12.0-15.0) H 07/02/17 04:54 INR 2.32 (0.83-1.16) H 07/02/17 04:54 ICD10 Worksheet Patient Problems: Problems Problem Status Onset Chronic renal insufficiency Acute Dementia Acute ESBL (extended spectrum beta-lactamase) producing bacteria infection Acute ~08/04 Elevated troponin Acute Hyperglycemia Acute Hypoxia Acute Afib - Atrial fibrillation Active CAD - Coronary arteriosclerosis Active Chronic kidney disease stage 5 Active Diabetes mellitus type 1 Active History of - hypertension Active Tachycardia-bradycardia Active Chest pain Acute 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
--- NOTE | 2017-07-02 16:25 | ASMTCMCOM ---
CM Note CM Note Notes: CM met w/ pt and for dispo planning. CM made a referral [facility] and both faciltiies have declined pt due to lack of bed availablity. CM made referral to [facility]. CM awaiting to hear back on placement. Date Signed: 07/02/2017 04:24 PM Electronically Signed By:DEBBIE Ayala
[2017-07-02] MEDS: WARFARIN SODIUM 2.5 MG TAB PO SCH (17:18)
[2017-07-02] MEDS: CEFEPIME HCL 1 GM in D5W 50 ML IV SCH (17:20)
--- NOTE | 2017-07-02 18:12 | PCMIDPN ---
Assessment/Plan: Assessment/Plan: * Confusion and falls: Potentially related to complicated UTI although difficult to fully discern. Urine culture shows growth of Pseudomonas which is susceptible to cefepime. Will plan on 7 days of daily cefepime with use of peripheral IV. Will continue with 1 g IV Q 24 hours to try to decrease risk of CITY ASSESSOR side effects based on recent falls and confusion. Isolate is carbapenem resistant - does not require contact precautions as carbapenem resistance is not that unusual in pseudomonal species with etiology typically being due to porin protein down regulation rather than carbapenemase production. Anticipate discharge once long-term facility available which is okay from ID perspective. 07/02/17 18:09 Subjective: Patient feels much better. No specific complaints. Objective: Vital Signs Temp Pulse Resp BP Pulse Ox 36.6 C 93 12 122/79 H 95 07/02/17 15:28 07/02/17 15:28 07/02/17 15:28 07/02/17 15:28 07/02/17 15:28 Laboratory Results 07/01/17 05:05 07/01/17 05:05 07/01/17 07/02/17 07/03/17 05:59 05:59 05:59 Intake Total 800 350 Output Total 2200 2785 950 Balance -1400 -2435 -950 Cefepime # 2 Urine culture greater than 100,000 Pseudomonas which is meropenem and levofloxacin resistant - Physical Exam General Appearance: alert, no apparent distress EENT: No thrush Respiratory: lungs clear, No respiratory distress Cardiac/Chest: regular rate, rhythm Abdomen: non-tender, No distended Back: No CVA tenderness ICD10 Worksheet Patient Problems: Problems Problem Status Onset Chronic renal insufficiency Acute Dementia Acute ESBL (extended spectrum beta-lactamase) producing bacteria infection Acute ~08/04 Elevated troponin Acute Hyperglycemia Acute Hypoxia Acute Afib - Atrial fibrillation Active CAD - Coronary arteriosclerosis Active Chronic kidney disease stage 5 Active Diabetes mellitus type 1 Active History of - hypertension Active Tachycardia-bradycardia Active Chest pain Acute 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
[2017-07-02] MEDS: ATORVASTATIN CALCIUM 40 MG TAB PO SCH (21:44)
[2017-07-02] MEDS: AMIODARONE HCL 200 MG TAB PO SCH (21:45)
[2017-07-02] MEDS: LISINOPRIL 5 MG TAB PO SCH (21:46)
[2017-07-02] MEDS: LATANOPROST 0.005% 2.5 ML OPHT DROPS EACHEYE SCH (21:48)
[2017-07-03 05:38] LABS: ANION GAP 8 mEq/L (8-16); CALCIUM 8.2 mg/dL (8.5-10.4); CARBON DIOXIDE 25 mEq/l (22-31); CHLORIDE 101 mEq/L (97-110); CREATININE 1.7 mg/dL (0.7-1.3); GLOMERULAR FILTRATION RATE 40; GLUCOSE 222 mg/dL (70-100); POTASSIUM 4.4 mEq/L (3.5-5.2); SODIUM 134 mEq/L (134-144)
[2017-07-03] MEDS: FUROSEMIDE 20 MG TAB PO SCH (08:54)
[2017-07-03] MEDS: ASPIRIN EC 81 MG TAB PO SCH (08:54)
[2017-07-03] MEDS: LEVOTHYROXINE 50 MCG TAB PO SCH (08:54)
[2017-07-03] MEDS: METOPROLOL TARTRATE 25 MG TAB PO SCH ×2 (08:54→21:26)
[2017-07-03] MEDS: predniSONE 5 MG TAB PO SCH (08:54)
[2017-07-03] MEDS: TACROLIMUS ANHYDROUS 0.5 MG CAP PO SCH ×2 (08:55→21:25)
[2017-07-03] MEDS: MYCOPHENOLATE MOFETIL 250 MG CAP PO SCH ×2 (08:55→21:25)
[2017-07-03] MEDS: INSULIN LISPRO 100 UNIT/ML SC SCH ×3 (08:58→18:04)
[2017-07-03] MEDS: TIMOLOL 0.5% 15 ML OPHT.BTL LEFTEYE SCH ×2 (09:09→21:27)
[2017-07-03 13:32] LABS: INR 2.28 (0.83-1.16); PROTIME(PATIENT) 25.3 SEC (12.0-15.0)
--- NOTE | 2017-07-03 15:05 | ASMTCMCOM ---
CM Note CM Note Notes: CM having difficulty in finding placement d/t pt's insurance plan. Pt has been declined by: [facility], and [facility]. does not want [facility] or [facility], per CM sent referral to [facility] but would have to pay $317/day for a semi-private room and a copay for PT. Also sent referral out to the [facility], OJSE M schrieber MD notified Date Signed: 07/03/2017 03:05 PM Electronically Signed By:Jo-Ann Mckeon RN
[2017-07-03] MEDS: WARFARIN SODIUM 2.5 MG TAB PO SCH (16:58)
--- NOTE | 2017-07-03 17:57 | HOSPPROG ---
Hospitalist Progress Note Assessment/Plan: Assessment: 71-year-old male presents with acute complicated urinary tract infection resulting in acute on chronic encephalopathy Plan: 1. Complicated urinary tract infection. Present on admission, due to recurrent , multiple straight catheterizations, with greater than 100,000 Pseudomonas and mental status changes -resistant to meropenem and levofloxacin, continue on renally dosed cefepime per Infectious Disease -will continue on 7 days of IV antibiotics at intermediate facility via peripheral IV line -will require outpatient infectious disease follow-up 2. Chronic urinary tension. Requiring straight catheterizations, patient is able to perform these and will continue to perform them q.6 hours at intermediate facility -recommended that the patient establish care with a urologist, outpatient follow up with Dr. Ruddy Linares -counseled the patient extensively regarding outpatient care for his urinary retention, strategies to avoiding future urinary tract infections by doing scheduled straight caths 3. Encephalopathy. Acute on chronic, evidenced by global brain dysfunction characterized as confusion, somnolence, disorientation, all of which are an acute change from his baseline, which is normally well functioning and is able to reside independently with his -resulting in gait insufficiency, requiring intermediate facility -secondary to the toxic effects of infection -mental status is improving with treatment of urinary tract infection 4. Chronic diastolic congestive heart failure. No evidence of acute exacerbation, continue to monitor volume status -net-2 kg during his length of stay -continue home medication 5. Hyponatremia. Acute, secondary to hypovolemia in the setting of infection, has responded to IV normal saline, repeat level in a.m. 6. Chronic kidney disease stage 3. Creatinine currently 1.7, continue to monitor 7. Diabetes mellitus type 1. Patient is currently receiving 6 units with meals, he will follow up with Dr. Amos Younger -poorly controlled, hemoglobin A1c 9% -continue pump at [facility] Diet. Diabetic Prophylaxis. Heparin subcu Code. Full Disposition. Anticipated discharge is 07/04/2017 to [facility] Subjective: Counseled the patient regarding his potential discharge plan Objective: Vital Signs Temp Pulse Resp BP Pulse Ox 36.5 C 70 18 107/66 97 07/03/17 16:00 07/03/17 16:00 07/03/17 16:00 07/03/17 16:00 07/03/17 16:00 Laboratory Results 07/01/17 05:05 07/03/17 04:52 07/02/17 07/03/17 07/04/17 05:59 05:59 05:59 Intake Total 350 Output Total 2785 1500 750 Balance -2435 -1500 -750 PT 25.3 SEC (12.0-15.0) H 07/03/17 12:50 INR 2.28 (0.83-1.16) H 07/03/17 12:50 - Time Spent With Patient Time Spent with Patient: greater than 35 minutes Time Spent with Patient: Greater than 35 minutes spent on this patients care, greater than 50% of time spent counseling, educating, and coordinating care regarding the above mentioned plan. - Pending Discharge Pending Discharge Within 24 Hours: Yes Pending Discharge Date: 07/04/17 Pending Discharge Time: 11:00 - Physical Exam Constitutional: no apparent distress, appears nourished, not in pain Cardiovascular: regular rate and rhythym, no murmur, rub, or gallop Respiratory: no respiratory distress, no rales or rhonchi, clear to auscultation Gastrointestinal: normoactive bowel sounds, soft, non-tender abdomen, no palpable masses Genitourinary: no bladder fullness, no bladder tenderness, no renal bruits Neurologic: AAOx3 Psychiatric: interacting appropriately, not anxious, not encephalopathic, thought process linear ICD10 Worksheet Patient Problems: Problems Problem Status Onset ESBL (extended spectrum beta-lactamase) producing bacteria infection Acute ~08/04 Hyperglycemia Acute Dementia Acute Hypoxia Acute Chronic renal insufficiency Acute Elevated troponin Acute 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
[2017-07-03] MEDS: CEFEPIME HCL 1 GM in D5W 50 ML IV SCH (18:04)
[2017-07-03] MEDS: AMIODARONE HCL 200 MG TAB PO SCH (21:26)
[2017-07-03] MEDS: ATORVASTATIN CALCIUM 40 MG TAB PO SCH (21:26)
[2017-07-03] MEDS: LISINOPRIL 5 MG TAB PO SCH (21:26)
[2017-07-03] MEDS: LATANOPROST 0.005% 2.5 ML OPHT DROPS EACHEYE SCH (21:27)
[2017-07-04] MEDS ORDERED: INSULIN REGULAR HUMAN 100 UNIT/ML SC ONE (04:26)
[2017-07-04 06:38] LABS: % IMMATURE GRANULYOCYTES 0.5 % (0.0-1.1); ABSOLUTE IMMATURE GRANULOCYTES 0.03 10^3/uL (0.00-0.10); ADD DIFF? NO; ADD MORPH? NO; ADD SCAN? NO; ATYPICAL LYMPHOCYTE FLAG 10 (0-99); FRAGMENT RBC FLAG 0 (0-99); HEMATOCRIT 39.6 % (40.0-51.0); HEMOGLOBIN 12.2 g/dL (13.7-17.5); LEFT SHIFT FLG 0 (0-99); LIPEMIA HEMOLYSIS FLAG 80 (0-99); MEAN CELL HEMOGLOBIN 28.9 pg (27.9-34.1); MEAN CELL HEMOGLOBIN CONCENTR. 30.8 g/dL (32.4-36.7); MEAN CELL VOLUME 93.8 fL (81.5-99.8); MEAN PLATELET VOLUME 10.2 fL (8.7-11.7); PLATELET CLUMPS FLAG 0 (0-99); PLATELET COUNT 186 10^3/uL (150-400); RED BLOOD CELL COUNT 4.22 10^6/uL (4.40-6.38); RED CELL DISTRIBUTION WIDTH 13.1 % (11.5-15.2)
[2017-07-04 06:49] LABS: INR 2.55 (0.83-1.16); PROTIME(PATIENT) 27.7 SEC (12.0-15.0)
[2017-07-04 06:53] LABS: ANION GAP 7 mEq/L (8-16); CALCIUM 8.3 mg/dL (8.5-10.4); CARBON DIOXIDE 25 mEq/l (22-31); CHLORIDE 101 mEq/L (97-110); CREATININE 1.7 mg/dL (0.7-1.3); GLOMERULAR FILTRATION RATE 40; GLUCOSE 272 mg/dL (70-100); POTASSIUM 4.6 mEq/L (3.5-5.2); SODIUM 133 mEq/L (134-144)
[2017-07-04 08:37] VITALS: BP 138/84; PULSE 69; RESP 16; TEMP 97.3; O2SAT 98
[2017-07-04] MEDS: INSULIN LISPRO 100 UNIT/ML SC SCH (09:11)
[2017-07-04] MEDS: MYCOPHENOLATE MOFETIL 250 MG CAP PO SCH (09:12)
[2017-07-04] MEDS: predniSONE 5 MG TAB PO SCH (09:13)
[2017-07-04] MEDS: TACROLIMUS ANHYDROUS 0.5 MG CAP PO SCH (09:13)
[2017-07-04] MEDS: METOPROLOL TARTRATE 25 MG TAB PO SCH (09:13)
[2017-07-04] MEDS: FUROSEMIDE 20 MG TAB PO SCH (09:13)
[2017-07-04] MEDS: ASPIRIN EC 81 MG TAB PO SCH (09:13)
[2017-07-04] MEDS: LEVOTHYROXINE 50 MCG TAB PO SCH (09:13)
[2017-07-04] MEDS: TIMOLOL 0.5% 15 ML OPHT.BTL LEFTEYE SCH (09:14)
[2017-07-04] MEDS ORDERED: FINASTERIDE 5 MG TAB PO SCH (10:00)
--- NOTE | 2017-07-04 10:14 | PDIAF ---
- Diagnosis Diagnosis: Possible Pseudomonal Urinary Tract Infection, Chronic Urine Retention Code Status: Full Code - Medication Management Discharge Medications: Medications to Continue on Transfer Amiodarone HCl [Pacerone (*)] 200 mg PO HS 02/11/17 [Last Taken 06/29/17] Atorvastatin Calcium [Lipitor 40 mg (*)] 40 mg PO HS 02/11/17 [Last Taken ] Furosemide [Lasix 20 MG (*)] 10 mg PO DAILY 02/11/17 [Last Taken 06/30/17] Insulin Pump, Patient Own 1 ea MIS AD 02/11/17 [Last Taken Unknown] Latanoprost 0.005% [Xalatan 0.005% (*)] 1 drops EACHEYE HS 02/11/17 [Last Taken 06/29/17] Levothyroxine [Synthroid 50 mcg (*)] 50 mcg PO DAILY 02/11/17 [Last Taken ] Metoprolol Tartrate [Lopressor 25 mg (*)] 25 mg PO BID 02/11/17 [Last Taken 10/04] Mycophenolate Mofetil [Cellcept] 750 mg PO BID 02/11/17 [Last Taken 02/11/17] Quinapril HCl [Accupril 5 mg] 5 mg PO HS 02/11/17 [Last Taken 06/29/17] Tacrolimus Anhydrous [Prograf 0.5 MG (*)] 1.5 mg PO BID 02/11/17 [Last Taken 10/04] Timolol 0.5% [TIMOPTIC 0.5% (*)] 1 drops LEFTEYE BID 02/11/17 [Last Taken ] predniSONE 5 mg PO DAILY 02/11/17 [Last Taken 06/30/17] Aspirin EC [Aspirin EC 81 mg (*)] 81 mg PO DAILY 06/30/17 [Last Taken 06/30/17] Warfarin Sodium [Coumadin 2.5MG (*)] 2.5 mg PO MOTUTHFRSA@16 06/30/17 [Last Taken 06/29/17] Cefepime HCl [Maxipime] 1 gm IV DAILY@1800 #3 vial 07/04/17 [Last Taken Unknown] Finasteride [Proscar 5 MG (*)] 5 mg PO DAILY tab 07/04/17 [Last Taken Unknown] Insulin Lispro [humALOG LISPRO 100 units/ml (*)] 6 unit SC TIDMEAL unit [Last Taken Unknown] Tamsulosin HCl [Flomax 0.4 MG (*)] 0.4 mg PO HS #30 cap 07/04/17 [Last Taken Unknown] Snf Antibiotics: Cefepime 1gm q24hrs IV Snf Antibiotic Stop Date: 07/07/17 (give through peripheral IV) Discharge Medications: Refer to the Discharge Home Medication list for PRN reason. PICC Care - Routine: N/A - Orders Services needed: Registered Nurse, Certified Utility Engineer, Physical Therapy, Occupational Therapy, Speech Language Pathologist (Cognitive therapy) Diet Recommendation: ADA 2000 consistent carb Diet Texture: Regular Texture Diet Weigh Patient: weekly Ram: Yes (q6hour scheduled straight catheterization) Wound Care Instructions: Wound care instructions: Please continue appointments w / coal chute worker after discharge. Dressing change orders for R knee and L rosa : to be done every3 days and as needed until healed. 1) cleanse wounds w/ soap and water in shower. 2) apply Hydrogel wound gel to scabbed areas. 3) cover w / band-aid w/ adhesive borders along all four sides. Activity/Weight Bearing Restrictions: as tolerated - Labs/Radiology BMP Date: 07/06/17 (weekly) CBC Date: 07/06/17 (weekly) PT/INR Date: 07/06/17 (weekly) Call or Fax Lab and Imaging Results to: Dr. Goldman, Dr. Beth, Dr. Filiberto Villegas - Follow Up Care Current Providers and Referrals: Amos Valentine MD [Medical Doctor] - follow up in 1 week [facility] Goldman MD [Medical Doctor] - follow up in 2 weeks Mega Leroy MD [Primary Care Provider] - 3 days of d/c SNF/Rehab
--- NOTE | 2017-07-04 11:04 | ASMTCMCOM ---
CM Note CM Note Notes: Pt accepted by [facility]. Pt will pay out of pocket what ever is not covered by insurance. Encouraged to revisit [facility] and [facility] for future use as stay at [facility] can be expensive. JOSE M spoke w/Adilia this am and orders faxed. [facility] to picking tech at 11:30-11:45, d/w , Carmen tena, RN to call report. Date Signed: 07/04/2017 11:04 AM Electronically Signed By:Jo-Ann Mckeon RN
--- NOTE | 2017-07-04 11:27 | ASMTCMCOM ---
CM Note CM Note Notes: Dc orders faxed hard copy as [facility] had trouble receiving referral via [employer]. Date Signed: 07/04/2017 11:26 AM Electronically Signed By:Jo-Ann Mckeon RN
--- NOTE | 2017-07-04 14:23 | ASDISCHSUM ---
Discharge Information Plan Status:SNF Medically Cleared to Leave: Discharge Date:07/04/2017 11:22 AM CM D/C Disposition:Senior Living Facility ADT D/C Disposition:Senior Living Facility Projected Discharge Date:07/03/2017 12:00 AM Transportation at D/C:Wheelchair Van Discharge Delay Reason: Follow-Up Date:07/03/2017 12:00 AM Discharge Slot: Final Diagnosis: Placement Information Referral Type:*[facility]/SNF Referral ID:[id number] Provider Name:[facility] Address 1:[address] Address 2: City:[place] Selection Factors: State:[place] Patient Contact Information Contact Name:EDERCRHISTELLE Relationship: Address:[address] [place] Alternate Phone: State/Zip Code:[place] [address] Email: Financial Information Financial Class:Medicare Advantage Plans Primary Plan Desc:RUST Primary Plan Number:[id number] Secondary Plan Desc: Secondary Plan Number: Assessment Information [facility] Progress Note CM Note CM Note Notes: Spoke w/ re; dc poc. Pt will need rehab before going home, talked to about [facility] but they do not take [employer] medicareJOSE M to discuss with about other snf options. Date Signed: 07/01/2017 05:23 PM Electronically Signed By:Jo-Ann Mckeon RN [facility] CM Progress Note CM Note CM Note Notes: CM met w/ pt and for dispo planning. CM made a referral to [facility] and both faciltiies have declined pt due to lack of bed availablity. CM made referral to [facility]. CM awaiting to hear back on placement. Date Signed: 07/02/2017 04:24 PM Electronically Signed By:DEBBIE Ayala [facility] JOSE M Progress Note CM Note CM Note Notes: CM having difficulty in finding placement d/t pt's insurance plan. Pt has been declined by: [facility], [facility], [facility], and [facility]. does not want [facility] or [facility], per CM sent referral to [facility] but would have to pay $317/day for a semi-private room and a copay for PT. [facility] notified Date Signed: 07/03/2017 03:05 PM Electronically Signed By:Jo-Ann Mckeon RN [facility] JOSE M Progress Note JOSE M Note JOSE M Note Notes: Pt accepted by [facility]. Pt will pay out of pocket what ever is not covered by insurance. Encouraged to revisit [facility] for future use as stay at [facility] can be expensive. JOSE M spoke w/Adilia this am and orders faxed. [facility] to picker and packer at 11:30-11:45, d/w , Eder madsen RN to call report. Date Signed: 07/04/2017 11:04 AM Electronically Signed By:Jo-Ann Mckeon RN [facility] JOSE M Progress Note CM Note CM Note Notes: [facility] orders faxed hard copy as [facility] had trouble receiving referral via [place]. Date Signed: 07/04/2017 11:26 AM Electronically Signed By:Jo-Ann Mckeon RN Intervention Information
--- NOTE | 2017-07-04 18:10 | PDDCSUM ---
Discharge Summary Discharge Summary: DISCHARGE SUMMARY FOLLOW-UP ITEMS: Outpatient electrolytes and INR monitoring Gauge effectiveness of finasteride/Flomax Outpatient blood sugar monitoring by Endocrinology DATE OF ADMISSION: 06/30/2017 DATE OF DISCHARGE: 07/04/2017 DISCHARGE DIAGNOSES: 1. Complicated urinary tract infection due to straight catheterizations, present on admission 2. Chronic urinary retention 3. Acute on chronic encephalopathy 4. Chronic diastolic congestive heart failure 5. Acute hyponatremia 6. Chronic kidney disease stage 3 7. Diabetes mellitus type 1 with neuropathy 8. Paroxysmal atrial fibrillation CONSULTATIONS: Infectious Disease PROCEDURES / IMAGING: CT of the abdomen and chest, demonstrating no evidence of perinephric abscess CHIEF COMPLAINT: Acute falls and encephalopathy SUBJECTIVE: Patient is feeling well at time of discharge, he is mentating at baseline PHYSICAL EXAM ON DISCHARGE: Systolic blood pressure is 150, heart rate 90, afebrile overnight, satting well on room air, urine output 2.4 L of last 24 hours, alert awake oriented x3, conversant, cooperative, follows commands, abdomen is soft, bladder is not full or distended LABS ON DISCHARGE: Creatinine 1.7, INR 2.55, potassium 4.6, serum sodium 133, white blood cell count 6300, hemoglobin 12.2 HOSPITAL COURSE BY PROBLEM: 1. Complicated urinary tract infection. Present on admission, secondary to recurrent, multiple straight catheterizations, required 4 chronic urinary retention. Urine culture grew greater than 100,000 Pseudomonas which was resistant to meropenem and levofloxacin. Infectious Disease recommended 7 total days of renally dosed cefepime. Patient received 4 doses in the hospital , requires 3 subsequent doses via peripheral IV at intermediate facility. Patient will have outpatient infectious disease follow-up. 2. Chronic urinary retention. Patient has chronic urinary retention secondary to neurogenic bladder in the setting of diabetes mellitus type 1. That being said, the patient does have a history of prostate procedures, per report from . He has also been on Flomax in the past, it is unclear why this medication was discontinued. Given that some of this information may indicate that the patient has an element of BPH, I am recommending he reinitiate finasteride and Flomax, and follow up with his outpatient urologist, Dr. Amos Valentine, in 1-2 weeks to gauge effect. It can be determined whether the patient is benefitting from these medications, whether suprapubic catheter may be indicated for the patient. Recommend that the patient perform scheduled straight catheterizations every 6 hours in order to avoid urinary retention and reduces risk of urinary tract infections. 3. Acute on chronic encephalopathy. Evidenced by global brain dysfunction characterized as confusion, somnolence, disorientation, all of which are an acute change from his baseline, which is a normally well functioning individual able to reside independently with his . Mental status changes most likely secondary to the toxic effects of infection. Patient's mental status improved to baseline after treatment for his infection, and he does have some resulting gait insufficiency requiring intermediate facility. 4. Chronic diastolic congestive heart failure. No evidence of acute exacerbation, the patient was continued on his home medications and maintained net even volume status during his length of stay. 5. Paroxysmal atrial fibrillation. Patient was continued on his home medications including Coumadin. His INR remained therapeutic. However repeat INR as an outpatient to ensure he does not have any significant rise in the setting of antibiotics. 6. Acute hyponatremia. Secondary to hypovolemia in the setting of infection, patient received normal saline and his sodium level responded. He did have mild downtrend at discharge, will have repeat level on Thursday. 7. Chronic kidney disease stage 3. Patient's serum creatinine level is currently near his baseline, 1.7. He will follow up with his outpatient translator interpreter, Dr. Patric Goldman. 8. Diabetes mellitus type 1 with neuropathy. Patient has a long complicated course with diabetes, resulting in right great toe TMA, as well as possible neurogenic bladder. The patient has been having some difficulties with his insulin pump, and this has been adjusted to provide him with basal dosing at night prior to discharge. Patient will continue on his pump and will follow up with his outpatient supply chain intern, Dr. Amos Younger. Conversation with Dr. Amos Younger during this hospitalization resulted in patient being placed on 60 units of subcutaneous insulin with meals. Patient will be continued on this dosing, and will follow up with his outpatient supply chain intern after discharge. DISCHARGE MEDICATIONS: Please see official discharge medication reconciliation sheet in chart , cefepime 1 g Q 24 hours x3 subsequent days, continue all other home medications including insulin pump, adjust mealtime insulin to 6 units. DISCHARGE INSTRUCTIONS: Please follow up with Dr. Amos Valentine as an outpatient, Dr. Amos Younger, infectious Disease as scheduled. TIME SPENT: Greater than 30 minutes were spent on direct patient care, as well as discharge planning and preparation.
[2017-07-04] MEDS ORDERED: TAMSULOSIN HCL 0.4 MG CAP PO SCH (21:00)
== END 2017-07-04 11:22 | DRG 698 ==
LOC: CED 14:18 → CEDHOLD 15:50 → F3E 17:49
PROVIDERS: ADMIT Hospitalist; ATTEND Hospitalist
DX: T83.518A Infection and inflammatory reaction due to other urinary catheter, initial encounter (principal); G93.49 Other encephalopathy; I50.32 Chronic diastolic (congestive) heart failure; E87.1 Hypo-osmolality and hyponatremia; Z94.0 Kidney transplant status; R33.9 Retention of urine, unspecified; N18.3 Chronic kidney disease, stage 3 (moderate); E10.40 Type 1 diabetes mellitus with diabetic neuropathy, unspecified; I48.0 Paroxysmal atrial fibrillation; N31.9 Neuromuscular dysfunction of bladder, unspecified; E03.9 Hypothyroidism, unspecified; F03.90 Unspecified dementia, unspecified severity, without behavioral disturbance, psychotic disturbance, mood disturbance, and anxiety; R29.6 Repeated falls; Z95.0 Presence of cardiac pacemaker; Z86.73 Personal history of transient ischemic attack (TIA), and cerebral infarction without residual deficits; Z95.1 Presence of aortocoronary bypass graft; Z79.01 Long term (current) use of anticoagulants; Z99.3 Dependence on wheelchair; Z96.41 Presence of insulin pump (external) (internal)
CPT/HCPCS: 70450-PO; 71020-PO; 71250-PO; 74176-PO; 80048-PO; 80076-PO; 80197-90; 81003-PO; 81015-PO; 82947-QW; 84484-PO; 85025-PO; 85610-PO; 96365; 97116-GP; 97162-GP; 97166-GO; 97530-GP; 97535-GO; J0692; J0696; J1815; Q9967

== ENCOUNTER 2017-09-11 01:54 | Inpatient (IN) | payer OTHER ==
[2017-09-11] MEDS ORDERED: LIDOCAINE 2% JELLY 20 ML (UROJECT) ONE (02:22)
--- NOTE | 2017-09-11 02:23 | EDPHY ---
H & P Stated Complaint: bladder infection dx and pt had a fall this morning Time Seen by Provider: 09/11/17 02:05 HPI/ROS: Chief Complaint: UTI, fall HPI: 71-year-old male with a history of renal transplant was diagnosed with a urinary tract infection 2 days ago. This morning patient got up to go the bathroom when he fell injuring his left foot. Patient has a history of underlying dementia but has been increasingly confused per family. Patient is also a type 1 diabetic on insulin pump. Denies any fevers or chills. No nausea or vomiting. No abdominal pain. He does self cath. He is currently on Prograf and CellCept. ROS: 10 point Review of Systems is negative except as noted in the HPI. PMH: Type 1 diabetes, renal failure status post renal transplant, urinary tract infections, dementia, pacemaker, coronary artery disease Social History: No smoking, no alcohol, no recreational drug use Family History: non-contributory Physical Exam: Gen: Awake, Alert, pleasantly confused HEENT: Nose: no rhinorrhea Eyes: PERRLA, EOMI Mouth: Moist mucosa Neck: Supple, no JVD Chest: nontender, lungs clear to auscultation Heart: S1, S2 normal, no murmur Abd: Soft, non-tender, no guarding Back: no CVA tenderness, no midline tenderness Ext: no edema, left foot is ecchymotic and moderately swollen in the lateral aspect. Right 1st and 2nd toes are amputated with a nonhealing ulcer. No hip or knee pain, full range of motion without any difficulties. Skin: no rash Neuro: CN II-XII intact, Sensation grossly intact, Strength 5/5 in bilateral upper and lower extremities - Personal History Current Tetanus/Diphtheria Vaccine: Yes Current Tetanus Diphtheria and Acellular Pertussis (TDAP): Yes Tetanus Vaccine Date: 2011 - Medical/Surgical History Hx Asthma: No Hx Chronic Respiratory Disease: No Hx Diabetes: Yes Hx Cardiac Disease: Yes Hx Renal Disease: Yes Hx Cirrhosis: No Hx Alcoholism: No Hx HIV/AIDS: No Hx Splenectomy or Spleen Trauma: No Other PMH: hypothyroid, pacemaker 2012, cardioversion, HTN, kidney transplant, Afib, aflutter, diabetes. uti. CVA-2010. CABG - Social History Smoking Status: Never smoked Constitutional: Initial Vital Signs Temperature (C) 36.6 C 09/11/17 01:56 Heart Rate 65 09/11/17 01:56 Respiratory Rate 16 09/11/17 01:56 Blood Pressure 107/77 09/11/17 01:56 O2 Sat (%) 93 09/11/17 01:56 O2 Delivery Mode Room Air Allergies/Adverse Reactions: No Known Allergies Allergy (Verified 09/11/17 02:00) Home Medications: Medication Instructions Recorded Amiodarone HCl [Pacerone (*)] 200 mg PO HS 02/11/17 Atorvastatin Calcium [Lipitor 40 40 mg PO HS 02/11/17 mg (*)] Furosemide [Lasix 20 MG (*)] 10 mg PO DAILY 02/11/17 Insulin Pump, Patient Own 1 ea MISC AD 02/11/17 Latanoprost 0.005% [Xalatan 0.005% 1 drops EACHEYE HS 02/11/17 (*)] Levothyroxine [Synthroid 50 mcg 50 mcg PO DAILY 02/11/17 (*)] Metoprolol Tartrate [Lopressor 25 25 mg PO BID 02/11/17 mg (*)] Mycophenolate Mofetil [Cellcept] 750 mg PO BID 02/11/17 Quinapril HCl [Accupril 5 mg] 5 mg PO HS 02/11/17 Tacrolimus Anhydrous [Prograf 0.5 1.5 mg PO BID 02/11/17 MG (*)] Timolol 0.5% [TIMOPTIC 0.5% (*)] 1 drops LEFTEYE BID 02/11/17 predniSONE 5 mg PO DAILY 02/11/17 Aspirin EC [Aspirin EC 81 mg (*)] 81 mg PO DAILY 06/30/17 Warfarin Sodium [Coumadin 2.5MG 2.5 mg PO MOTUTHFRSA@16 06/30/17 (*)] Cefepime HCl [Maxipime] 1 gm IV DAILY@1800 #3 vial 07/04/17 Insulin Lispro [humALOG LISPRO 100 6 unit SC TIDMEAL unit 07/04/17 units/ml (*)] Bactrim SS 09/11/17 Medical Decision Making - Diagnostics Imaging Results: Left foot x-ray shows what appears to be a new fracture of his distal left 5th metatarsal. There are significant degenerative changes Imaging: I viewed and interpreted images myself ED Course/Re-evaluation: 71-year-old male currently being treated for urinary tract infection status post fall with increasing confusion. Patient has significant ecchymoses foot and appears to have an acute fracture. He is not able to ambulate on this. Given his underlying disease comorbidities and his decreased mobility will admit him to the hospitalist for further care. I have discussed with Dr. Meehan. He will admit to his service. Patient's extraction operator is Dr. Turner. - Data Points Laboratory Results: Laboratory Results 09/11/17 02:17 09/11/17 09/11/17 09/11/17 02:39 02:17 02:17 WBC 8.62 10^3/uL 10^3/uL (3.80-9.50) RBC 4.07 10^6/uL L 10^6/uL (4.40-6.38) Hgb 12.0 g/dL L g/dL (13.7-17.5) Hct 37.9 % L % (40.0-51.0) MCV 93.1 fL fL (81.5-99.8) MCH 29.5 pg pg (27.9-34.1) MCHC 31.7 g/dL L g/dL (32.4-36.7) RDW 13.6 % % (11.5-15.2) Plt Count 204 10^3/uL 10^3/uL (150-400) MPV 9.9 fL fL (8.7-11.7) Neut % (Auto) 76.8 % H % (39.3-74.2) Lymph % (Auto) 9.0 % L % (15.0-45.0) [place] % (Auto) 10.8 % % (4.5-13.0) Eos % (Auto) 2.4 % % (0.6-7.6) Baso % (Auto) 0.3 % % (0.3-1.7) Nucleat RBC Rel Count 0.0 % % (0.0-0.2) Absolute Neuts (auto) 6.61 10^3/uL H 10^3/uL (1.70-6.50) Absolute Lymphs (auto) 0.78 10^3/uL L 10^3/uL (1.00-3.00) Absolute Monos (auto) 0.93 10^3/uL H 10^3/uL (0.30-0.80) Absolute Eos (auto) 0.21 10^3/uL 10^3/uL (0.03-0.40) Absolute Basos (auto) 0.03 10^3/uL 10^3/uL (0.02-0.10) Absolute Nucleated RBC 0.00 10^3/uL 10^3/uL (0-0.01) Immature Gran % 0.7 % % (0.0-1.1) Immature Gran # 0.06 10^3/uL 10^3/uL (0.00-0.10) Sodium Pending Potassium Pending Chloride Pending Carbon Dioxide Pending Anion Gap Pending BUN Pending Creatinine Pending Estimated GFR Pending Glucose Pending Calcium Pending Urine Color YELLOW Urine Appearance HAZY Urine pH 5.0 (5.0-7.5) Ur Specific [place] 1.014 (1.002-1.030) Urine Protein NEGATIVE (NEGATIVE) Urine Ketones NEGATIVE (NEGATIVE) Urine Blood 3+ H (NEGATIVE) Urine Nitrate NEGATIVE (NEGATIVE) Urine Bilirubin NEGATIVE (NEGATIVE) Urine Urobilinogen NEGATIVE EU EU (0.2-1.0) Ur Leukocyte Esterase 1+ H (NEGATIVE) Urine RBC 5-10 /hpf H /hpf (0-3) Urine WBC 25-50 /hpf H /hpf (0-3) Ur Epithelial Cells TRACE /lpf /lpf (NONE-1+) Urine Bacteria 4+ /hpf H /hpf (NONE SEEN) Urine Glucose 3+ H (NEGATIVE) Medications Given: Discontinued Medications Lidocaine (Uroject Lidocaine 2% Jelly) 20 ml UR EDNOW ONE Stop: 09/11/17 02:28 Last Admin: 09/11/17 02:37 Dose: 20 ml Departure - Departure Disposition: [facility] Inpatient Acute Clinical Impression: Diabetes mellitus type 1, Urinary tract infection Condition: Good
[2017-09-11] MEDS ORDERED: LIDOCAINE 2% JELLY 20 ML (UROJECT) UR ONE (02:27)
[2017-09-11 02:49] LABS: COLOR YELLOW; LEUKOCYTE ESTERASE,URINE 1+ (NEGATIVE); NITRITE,URINE NEGATIVE (NEGATIVE)
[2017-09-11 02:51] LABS: % IMMATURE GRANULYOCYTES 0.7 % (0.0-1.1); ABSOLUTE IMMATURE GRANULOCYTES 0.06 10^3/uL (0.00-0.10); ADD DIFF? NO; ADD MORPH? NO; ADD SCAN? NO; ATYPICAL LYMPHOCYTE FLAG 0 (0-99); FRAGMENT RBC FLAG 0 (0-99); HEMATOCRIT 37.9 % (40.0-51.0); LEFT SHIFT FLG 0 (0-99); LIPEMIA HEMOLYSIS FLAG 80 (0-99); MEAN CELL HEMOGLOBIN 29.5 pg (27.9-34.1); MEAN CELL HEMOGLOBIN CONCENTR. 31.7 g/dL (32.4-36.7); MEAN CELL VOLUME 93.1 fL (81.5-99.8); MEAN PLATELET VOLUME 9.9 fL (8.7-11.7); PLATELET CLUMPS FLAG 0 (0-99); PLATELET COUNT 204 10^3/uL (150-400); RED BLOOD CELL COUNT 4.07 10^6/uL (4.40-6.38); RED CELL DISTRIBUTION WIDTH 13.6 % (11.5-15.2)
[2017-09-11] MEDS ORDERED: ONDANSETRON DISINTEGRATING 4 MG TAB PO PRN (03:05)
[2017-09-11] MEDS ORDERED: ONDANSETRON 4 MG/2 ML VIAL IVP PRN (03:05)
[2017-09-11] MEDS ORDERED: ACETAMINOPHEN 325 MG TAB PO PRN (03:05)
[2017-09-11 03:08] LABS: BACTERIA 4+ /hpf (NONE SEEN); WBC,URINE 25-50 /hpf (0-3)
[2017-09-11 03:12] LABS: ANION GAP 9 mEq/L (8-16); CALCIUM 8.7 mg/dL (8.5-10.4); CARBON DIOXIDE 25 mEq/l (22-31); CHLORIDE 97 mEq/L (97-110); CREATININE 2.6 mg/dL (0.7-1.3); GLOMERULAR FILTRATION RATE 24; GLUCOSE 307 mg/dL (70-100); POTASSIUM 4.6 mEq/L (3.5-5.2); SODIUM 131 mEq/L (134-144)
[2017-09-11] MEDS ORDERED: NS 500 ML IV ONE ×2 (03:16→08:36)
--- NOTE | 2017-09-11 04:05 | PDGENHP ---
History and Physical - Chief Complaint Fall, confusion - History of Present Illness 71 yo M w/ hx of renal transplant, CKD, CAD s/p CABG, AF, DM1 c/b neurogenic bladder, dementia, and HFpEF presents after a fall. HPI obtained from patient but he is a pretty poor historian. As best as I could ascertain, he had symptoms of mild confusion a few days ago and he was started on Bactrim for treatment of a urinary tract infection. Then, yesterday he fell while getting out of bed and hurt his left foot. His brought him to the ED to be evaluated for his fall and because she felt he was mildly more confused than usual. The patient himself denies symptoms currently and says he feels fine. He is oriented to person and place but not the date. Of note, he had an I&D of a R foot ulcer a few days prior to admission. History Information - Allergies/Home Medication List Allergies/Adverse Reactions: No Known Allergies Allergy (Verified 09/11/17 02:00) Home Medications: Amiodarone HCl [Pacerone (*)] 200 mg PO HS 02/11/17 [Last Taken 06/29/17] Atorvastatin Calcium [Lipitor 40 mg (*)] 40 mg PO HS 02/11/17 [Last Taken ] Furosemide [Lasix 20 MG (*)] 10 mg PO DAILY 02/11/17 [Last Taken 06/30/17] Insulin Pump, Patient Own 1 ea [facility] AD 02/11/17 [Last Taken Unknown] Latanoprost 0.005% [Xalatan 0.005% (*)] 1 drops EACHEYE HS 02/11/17 [Last Taken 06/29/17] Levothyroxine [Synthroid 50 mcg (*)] 50 mcg PO DAILY 02/11/17 [Last Taken ] Metoprolol Tartrate [Lopressor 25 mg (*)] 25 mg PO BID 02/11/17 [Last Taken 10/04] Mycophenolate Mofetil [Cellcept] 750 mg PO BID 02/11/17 [Last Taken 02/11/17] Quinapril HCl [Accupril 5 mg] 5 mg PO HS 02/11/17 [Last Taken 06/29/17] Tacrolimus Anhydrous [Prograf 0.5 MG (*)] 1.5 mg PO BID 02/11/17 [Last Taken 10/04] Timolol 0.5% [TIMOPTIC 0.5% (*)] 1 drops LEFTEYE BID 02/11/17 [Last Taken ] predniSONE 5 mg PO DAILY 02/11/17 [Last Taken 06/30/17] Aspirin EC [Aspirin EC 81 mg (*)] 81 mg PO DAILY 06/30/17 [Last Taken 06/30/17] Warfarin Sodium [Coumadin 2.5MG (*)] 2.5 mg PO MOTUTHFRSA@16 06/30/17 [Last Taken 06/29/17] Bactrim SS 09/11/17 [Last Taken Unknown] I have personally reviewed and updated: family history, medical history - Past Medical History atrial fibrillation, coronary artery disease, CHF, CVA, dementia, diabetes type 1, hypertension, recurrent UTI Additional medical history: CAD s/p 5v CABG, hypothyroidism, recurrent UTI's with pseudomonal colonization, left renal transplant secondary to diabetic nephropathy, A fib on coumadin, LUCINDA - Surgical History Reports: coronary bypass surgery, pacemaker/AICD Additional surgical history: Renal transplant, left arm ORIF, right great toe amputation - Family History Positive for: cancer - Social History Smoking Status: Never smoked Additional social history: Lives at home with his . Wheelchair bound. Review of Systems Review of Systems: ROS: 10pt was reviewed & negative except for what was stated in HPI & below Physical Exam Physical Exam: Temp Pulse Resp BP Pulse Ox 37 C 66 16 157/88 H 93 09/11/17 03:36 09/11/17 03:36 09/11/17 03:36 09/11/17 03:36 09/11/17 03:36 Constitutional: no apparent distress, not in pain Eyes: PERRL, EOMI Ears, Nose, Mouth, Throat: moist mucous membranes, no oral mucosal ulcers Cardiovascular: regular rate and rhythym, systolic murmur Respiratory: no respiratory distress, clear to auscultation Gastrointestinal: normoactive bowel sounds, soft, non-tender abdomen, other ( Insulin pump in place) Skin: warm, other (Echymosis L lateral foot; ulcer 2nd R toe s/p I&D with sutures in place) Neurologic: CN II-XII Intact, other (A&Ox2) Psychiatric: interacting appropriately, not anxious Lab Data & Imaging Review 09/11/17 02:17 09/11/17 02:17 WBC 8.62 10^3/uL (3.80-9.50) 09/11/17 02:17 RBC 4.07 10^6/uL (4.40-6.38) L 09/11/17 02:17 Hgb 12.0 g/dL (13.7-17.5) L 09/11/17 02:17 Hct 37.9 % (40.0-51.0) L 09/11/17 02:17 MCV 93.1 fL (81.5-99.8) 09/11/17 02:17 MCH 29.5 pg (27.9-34.1) 09/11/17 02:17 MCHC 31.7 g/dL (32.4-36.7) L 09/11/17 02:17 RDW 13.6 % (11.5-15.2) 09/11/17 02:17 Plt Count 204 10^3/uL (150-400) 09/11/17 02:17 MPV 9.9 fL (8.7-11.7) 09/11/17 02:17 Neut % (Auto) 76.8 % (39.3-74.2) H 09/11/17 02:17 Lymph % (Auto) 9.0 % (15.0-45.0) L 09/11/17 02:17 [place] % (Auto) 10.8 % (4.5-13.0) 09/11/17 02:17 Eos % (Auto) 2.4 % (0.6-7.6) 09/11/17 02:17 Baso % (Auto) 0.3 % (0.3-1.7) 09/11/17 02:17 Nucleat RBC Rel Count 0.0 % (0.0-0.2) 09/11/17 02:17 Absolute Neuts (auto) 6.61 10^3/uL (1.70-6.50) H 09/11/17 02:17 Absolute Lymphs (auto) 0.78 10^3/uL (1.00-3.00) L 09/11/17 02:17 Absolute Monos (auto) 0.93 10^3/uL (0.30-0.80) H 09/11/17 02:17 Absolute Eos (auto) 0.21 10^3/uL (0.03-0.40) 09/11/17 02:17 Absolute Basos (auto) 0.03 10^3/uL (0.02-0.10) 09/11/17 02:17 Absolute Nucleated RBC 0.00 10^3/uL (0-0.01) 09/11/17 02:17 Immature Gran % 0.7 % (0.0-1.1) 09/11/17 02:17 Immature Gran # 0.06 10^3/uL (0.00-0.10) 09/11/17 02:17 Sodium 131 mEq/L (134-144) L 09/11/17 02:17 Potassium 4.6 mEq/L (3.5-5.2) 09/11/17 02:17 Chloride 97 mEq/L (97-110) 09/11/17 02:17 Carbon Dioxide 25 mEq/l (22-31) 09/11/17 02:17 Anion Gap 9 mEq/L (8-16) 09/11/17 02:17 BUN 46 mg/dL (7-23) H 09/11/17 02:17 Creatinine 2.6 mg/dL (0.7-1.3) H 09/11/17 02:17 Estimated GFR 24 09/11/17 02:17 Glucose 307 mg/dL (70-100) H 09/11/17 02:17 Calcium 8.7 mg/dL (8.5-10.4) 09/11/17 02:17 Urine Color YELLOW 09/11/17 02:39 Urine Appearance HAZY 09/11/17 02:39 Urine pH 5.0 (5.0-7.5) 09/11/17 02:39 Ur Specific [place] 1.014 (1.002-1.030) 09/11/17 02:39 Urine Protein NEGATIVE (NEGATIVE) 09/11/17 02:39 Urine Ketones NEGATIVE (NEGATIVE) 09/11/17 02:39 Urine Blood 3+ (NEGATIVE) H 09/11/17 02:39 Urine Nitrate NEGATIVE (NEGATIVE) 09/11/17 02:39 Urine Bilirubin NEGATIVE (NEGATIVE) 09/11/17 02:39 Urine Urobilinogen NEGATIVE EU (0.2-1.0) 09/11/17 02:39 Ur Leukocyte Esterase 1+ (NEGATIVE) H 09/11/17 02:39 Urine RBC 5-10 /hpf (0-3) H 09/11/17 02:39 Urine WBC 25-50 /hpf (0-3) H 09/11/17 02:39 Ur Epithelial Cells TRACE /lpf (NONE-1+) 09/11/17 02:39 Urine Bacteria 4+ /hpf (NONE SEEN) H 09/11/17 02:39 Urine Glucose 3+ (NEGATIVE) H 09/11/17 02:39 Imaging Review: L foot XR with possible fracture but awaiting final read. Assessment & Plan Assessment: 71 yo M w/ hx of renal transplant, CKD, CAD s/p CABG, AF, DM1 c/b neurogenic bladder, dementia, and HFpEF presents after a fall with mild confusion. Plan: 1. Fall, L foot injury - Mechanical fall on day prior to admission, with injury to L foot. XR in ED with possible fracture per ED physician Dr. Hall. - PT/OT consults - Await final XR read, may require orthopedics consult 2. Dementia with possible superimposed encephalopathy - Difficult to ascertain baseline, but patient A&Ox2 currently with poor memory of recent timeline of events. His brought him in because she thought he was mildly confused. Possible explanations include ESTUARDO and UTI. - Treat acute issues and monitor mental status - Check tacrolimus level noting altered renal function 3. ESTUARDO on CKD, history of renal transplant - Cr baseline appears to be around 1.7, increased to 2.6 on admission in the setting of recently starting Bactrim, which can falsely elevate serum creatinine but can also cause direct renal toxicity. On prednisone, tacrolimus, and MMF for immunosuppression. - Continue home IS regimen, check tacrolimus level - Obtain FeNa, FeUrea - Trial small bolus (250 mL) and change antibiotic, monitor BMP 4. Complicated UTI w/ hx of colonization - Multiple UTI's with known Pseudomonas colonization as a result of neurogenic bladder and need for frequent catheterization. Started on Bactrim 09/09. - Will change Bactrim to CTX for now noting worsened renal function - Await urine culture results from 09/09, currently lactose fermenting GNR 5. Hyponatremia - Mild, possibly related to infection and dehydration. Will trial small bolus and monitor BMP. 6. Chronic diastolic HF - No evidence of volume overload on admission. 7. CAD s/p CABG - Denies chest pain; on ASA, statin, BB, and TAM as outpatient. Needs med reconciliation. 8. AF - On warfarin for AC, BB and amiodarone also on medication list. Needs med reconciliation. - Monitor INR 9. T1DM - Insulin pump in place, will continue. Diet - Regular Code - Full Ppx - Warfarin Dispo - Admit to observation status
[2017-09-11] MEDS ORDERED: NS 250 ML IV ONE (04:14)
[2017-09-11] MEDS ORDERED: D50W 25 GM/50 ML VIAL IVP PRN (04:25)
[2017-09-11] MEDS ORDERED: INSULIN PUMP, PATIENT OWN 1 EA MISC SCH (04:30)
[2017-09-11 05:10] LABS: INR 2.04 (0.83-1.16); PROTIME(PATIENT) 23.2 SEC (12.0-15.0)
[2017-09-11] MEDS ORDERED: D50W 25 GM/50 ML SYR IVP PRN (09:14)
[2017-09-11] MEDS: INSULIN LISPRO 100 UNIT/ML SC SCH ×3 (10:09→17:47)
[2017-09-11 10:45] LABS: HEMOGLOBIN A1C 9.5 % (4.0-6.0)
--- NOTE | 2017-09-11 10:57 | HOSPPROG ---
Hospitalist Progress Note Assessment/Plan: 71 yo M w/ hx of renal transplant, CKD, CAD s/p CABG, AF, DM1 c/b neurogenic bladder, dementia, and HFpEF presents after a fall with mild confusion. # Fall, L foot injury - Mechanical fall on day prior to admission- patient unable to provide complete details of fall Left foot x-ray(personally reviewed and interpreted) multiple metatarsal fractures - consulting Dr. Peter from orthopedics - p.r.n. pain meds # Acute Encephalopathy -patient remains A& O x2 only -suspect multifactorial baseline dementia with overlying acute infection Oxygen saturations 93% on room air - treat UTI with ceftriaxone - optimize glycemic control - hydrate and follow clinical course # poorly controlled diabetes- patient uses insulin pump at home however seems to confused to appropriately manage- BS > 350 this a.m. - DC insulin home - initiate sliding scale insulin # ESTUARDO on CKD, history of renal transplant - Cr baseline appears to be around 1.7 , increased to 2.6 on admission in the setting of recently starting Bactrim, Outpatient On prednisone, tacrolimus, and MMF for immunosuppression. - cvonsulted Dr. Rehman from Nephrology - NS small bolus x 2 given - urine studies pending - agree dc bactrim - tx with ceftriaxone - repeat BMP later # Complicated UTI w/ hx of colonization - Multiple UTI's with known Pseudomonas colonization as a result of neurogenic bladder - Started on Bactrim 09/09. - cont ceftriaxone - Follow urine culture results from 09/09, currently lactose fermenting GNR - straight cath prn # Hyponatremia -sodium 131 - suspect 2/2 dehydration - recheck BMP this am before additional IVF # Chronic diastolic HF - No evidence of volume overload on admission. # CAD s/p CABG - Denies chest pain; on ASA, statin, BB, and TAM as outpatient. Needs med reconciliation. # atrial fibrillation permanent - On warfarin for AC, BB and amiodarone also on medication list. - restart home meds after med reconciliation. - Monitor INR #Diet - diabetic #Code - Full # Ppx - full-dose anticoagulation # Dispo - >2MN presenting with multiple medical problems including encephalopathy will require greater than 1 midnight for medication titration monitoring and care I have discussed the case with Dr. Rehman from Nephrology and Dr. Peter from orthopedics they will consult and assist in this patient's initial hospital care Subjective: tolerating po Objective: Vital Signs Temp Pulse Resp BP Pulse Ox 36.9 C 90 14 116/90 H 93 09/11/17 07:09 09/11/17 07:09 09/11/17 07:09 09/11/17 07:09 09/11/17 07:09 09/10/17 09/11/17 09/12/17 05:59 05:59 05:59 Intake Total 600 Output Total 550 Balance 50 PT 23.2 SEC (12.0-15.0) H 09/11/17 04:50 INR 2.04 (0.83-1.16) H 09/11/17 04:50 - Physical Exam Constitutional: appears nourished Eyes: anicteric sclera Ears, Nose, Mouth, Throat: moist mucous membranes Cardiovascular: regular rate and rhythym Respiratory: no respiratory distress Gastrointestinal: normoactive bowel sounds Genitourinary: no bladder fullness Skin: warm Musculoskeletal: No asymmetric calves Neurologic: AAOx3 Psychiatric: interacting appropriately Lymph, Heme, Immunologic: no cervical LAD ICD10 Worksheet Patient Problems: Problems Problem Status Onset Diabetes mellitus type 1 Acute Urinary tract infection Acute Afib - Atrial fibrillation Active CAD - Coronary arteriosclerosis Active Chronic kidney disease stage 5 Active History of - hypertension Active Tachycardia-bradycardia Active Chest pain Acute Chronic renal insufficiency Acute Dementia Acute ESBL (extended spectrum beta-lactamase) producing bacteria infection Acute ~08/04 Elevated troponin Acute Hyperglycemia Acute Hypoxia Acute 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
--- NOTE | 2017-09-11 11:13 | GCON ---
[f rep st] CONSULTATION ORTHOPEDIC ER CONSULT CHIEF COMPLAINT: Left foot swelling and bruising. DIAGNOSIS: Multiple metatarsal fractures, acute versus chronic. ASSOCIATED DIAGNOSES: 1. Diabetic neuropathy. 2. Status post renal transplant. 3. Urinary tract infection. Please see details of ER and admitting H and P. A 71-year-old male, a history of renal transplant diagnosed with a UTI. Apparently fell while going to the bathroom and injuring his left foot. He was brought in by his , slightly confused. PERTINENT ORTHOPEDIC EXAMINATION: Reveals a well-appearing gentleman. He is oriented to hospital, b me thinks he has been in the hospital now for 4 to 5 days. He states that he has had diabetic neurop athy for the last 30 to 40 years. He understands Charcot neuropathy. He understands that his podiat rist is Dr. Turner at [facility]. The right great toe has a deformity. He has a well-healing wound sutures on the great toe. No evide nce of infection. The left foot is obviously bruised and swollen, looks different than the right tran t. Bilateral feet with flatfoot deformity, valgus deformity of the forefoot, and Charcot neuropathy. X-rays of both feet were reviewed. The left foot shows possibly healed greater metatarsal fractures that have some callus formation, as well as some possibly new lesser metatarsal fractures that are mi nimally displaced. The right great toe has a 1st ray missing, which looks like an old procedure. IMPRESSION AND RECOMMENDATIONS: Diabetic neuropathy, insensate feet. Most of the skin looks fairly healthy around especially on the heels. I did change the dressing today. We did a Xeroform, 4 x 4, and a Coban wrapping without adhesive. I would like to have bunny boots on both feet. Decubitus [facility] er prevention. Weightbearing as tolerated for fear of his balance issues and a walker. Follow up [facility] Dr. Turner. /[id number]/MODL
[2017-09-11 11:49] LABS: ANION GAP 12 mEq/L (8-16); CALCIUM 8.5 mg/dL (8.5-10.4); CARBON DIOXIDE 22 mEq/l (22-31); CHLORIDE 99 mEq/L (97-110); CREATININE 2.2 mg/dL (0.7-1.3); GLOMERULAR FILTRATION RATE 29; GLUCOSE 348 mg/dL (70-100); POTASSIUM 4.5 mEq/L (3.5-5.2); SODIUM 133 mEq/L (134-144)
[2017-09-11] MEDS: ASPIRIN EC 81 MG TAB PO SCH (12:12)
--- NOTE | 2017-09-11 14:10 | PDMN ---
Medical Necessity Medical necessity: Pt meets Inpt criteria per MD as of 09/11/17 and [facility] Multiple Illness GRG (est. LOS >2 MN for eval/tx of fall, LLE injury - multiple metatarsal fractures, acute encephalopathy, poorly controlled diabetes, ESTUARDO on CKD, complicated UTI, hyponatremia suspect 2/2 dehydration; hx renal transplant , chronic diastolic HF, CAD per MD progress note).
--- NOTE | 2017-09-11 14:25 | ASMTCMCOM ---
CM Note CM Note Notes: Pt admitted after a fall with L toe fx, encephalopathy, UTI. Hx CKD, renal transplant, CABG, DM1, dementia. A&Ox2. Lives with his . PT/OT evals pending. Family not present at this time. CM will follow for any d/c needs. Date Signed: 09/11/2017 02:24 PM Electronically Signed By:ERIK Wade
--- NOTE | 2017-09-11 14:44 | GCON ---
[f rep st] CONSULTATION DATE OF CONSULTATION: 09/11/2017 REFERRING PHYSICIAN: Dr. Matias REASON FOR CONSULTATION: Kidney transplant as in ESTUARDO. HISTORY OF PRESENT ILLNESS: The patient is a 71-year-old male, who underwent a cadaveric kidney aguirre splant in 1995 at [facility] in [place]. He is followed by Dr. Goldman. He has a hi story of recurrent urinary tract infections and straight catheterizes himself 2-3 times per day. He is colonized by Pseudomonas. Earlier this week he developed symptoms of a urinary infection. Then sebastián wilkerson fell while getting out of his bed and hurt his foot. His brought him in. He has had decrease d oral intake and been a little bit confused per his . He was started on IV fluids. His baselin e creatinine runs between 1.7 and 2.1. It was 2.6 on admission, and is back down to 2.2 today. He s tates his urinary symptoms have resolved, and he feels much better. He has poorly controlled diabete s. His manages his insulin pump. He denies fevers, chills, nausea, vomiting, but has had const ipation. History is taken from the patient, his , and discussion with Dr. Matias. He was started on Bact rim by Dr. Leroy earlier this week, but has not had any improvement. Hence, his brought him in . PAST MEDICAL HISTORY: See HPI. Type 1 diabetes with diabetic nephropathy; osteoporosis; coronary di sease, status post ID and CABG in 1996; atrial fibrillation; hypertension with orthostasis; obstructi ve sleep apnea, on CPAP; stroke; pyelonephritis; recurrent urinary infections; urinary retention; ski n cancers; has a complex right cystic kidney mass; retinopathy; toe amputation; Charcot foot; pacemak er placement; ORIF, left humerus; TURP; cataracts. FAMILY HISTORY: Noncontributory. 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 He is a nonsmoker. ALLERGIES: No known drug allergies. REVIEW OF SYSTEMS: See HPI. Otherwise, 10-system review negative in detail. PHYSICAL EXAMINATION: VITAL SIGNS: 123/80 with a pulse of 66, respiration rate of 12, saturating 98 % on room air, 36.7 Celsius. GENERAL: Very pleasant, talkative, upbeat male. NEUROLOGICA L: He answers questions appropriately and seems oriented. No gross focal deficits. Extraocular mov ements seem intact. HEENT: Oral mucosa is moist. NECK: No lymphadenopathy. No jugular venous dis tention. HEART: Regular rate and rhythm with a 2/6 systolic murmur in the precordium. LUNGS: Dimin ished bibasilar breath sounds. No crackles or wheezes. ABDOMEN: Soft, nontender. No masses. No b ruit over his left lower quadrant renal allograft. LOWER EXTREMITIES: 1+ pretibial pitting edema. M USCULOSKELETAL: Right foot is in a cast. VASCULAR: Posterior tib pulses 1+ bilaterally. SKIN: He has multiple ecchymoses all over his arms. LABS: Sodium 133, potassium 4.5, CO2 of 22, BUN 41, creatinine 2.2, glucose 348, calcium 8.5. White count 8.6, hemoglobin 12, platelets 204. Urine 3+ blood, 5-10 red cells, 25-50 white cells, 4+ bact eria, 3+ glucose. IMAGING: Right foot x-ray shows fracture of the 5th metatarsal as well as the 3rd and 4th. IMPRESSION AND PLAN: 1. Acute kidney injury. Likely volume depletion from his infection. Responding well to fluids. Cr eatinine near baseline at 2.2. 2. Kidney transplant. This has functioned well for 21 years. A tacrolimus level was checked. Cont inue his home immunosuppression regimen with tacrolimus, mycophenolate, and prednisone. 3. Urinary tract infection, recurrent. Await culture. He is colonized with Pseudomonas. He sympto matically seems better. He may require more than ceftriaxone alone to adequately treat him. He shou ld be treated for a full course of 2 weeks given this is a complicated infection. 4. Diabetes mellitus type 1. On insulin pump, hemoglobin A1c in the 9's. 5. Atrial fibrillation. Rate controlled on amiodarone and metoprolol. On Coumadin as well. 6. I did find a urine culture report from September 09. He is growing Escherichia coli sensitive t o ceftriaxone. Therefore, would continue ceftriaxone at this time. 7. Edema. This is mild. He has taken Lasix in the past. We are hydrating him at this time. We wi ll need to be cautious not to over hydrate. He received a bolus of normal saline, and is now only hy drating by mouth. I think that is reasonable for now. /[id number]/MODL
[2017-09-11] MEDS: WARFARIN SODIUM 2.5 MG TAB PO SCH (15:33)
[2017-09-11] MEDS ORDERED: LATANOPROST 0.005% 2.5 ML OPHT DROPS EACHEYE SCH (21:00)
[2017-09-11] MEDS ORDERED: MYCOPHENOLATE MOFETIL 750 MG PO SCH (21:00)
[2017-09-11] MEDS: LATANOPROST 0.005% 2.5 ML OPHT DROPS EACHEYE SCH (21:12)
[2017-09-11] MEDS: METOPROLOL TARTRATE 25 MG TAB PO SCH (21:16)
[2017-09-11] MEDS: ATORVASTATIN CALCIUM 20 MG TAB PO SCH (21:17)
[2017-09-11] MEDS: AMIODARONE HCL 200 MG TAB PO SCH (21:17)
[2017-09-11] MEDS: TACROLIMUS ANHYDROUS 0.5 MG CAP PO SCH (21:19)
[2017-09-11] MEDS: MYCOPHENOLATE MOFETIL 250 MG CAP PO SCH (21:21)
[2017-09-11] MEDS: TIMOLOL 0.5% 15 ML OPHT.BTL LEFTEYE SCH (21:22)
[2017-09-12 00:59] LABS: GLUCOSE 363 mg/dL (70-100)
[2017-09-12] MEDS ORDERED: INSULIN LISPRO 100 UNIT/ML SC ONE ×2 (01:18→23:15)
[2017-09-12 05:05] LABS: % IMMATURE GRANULYOCYTES 1.1 % (0.0-1.1); ABSOLUTE IMMATURE GRANULOCYTES 0.08 10^3/uL (0.00-0.10); ADD DIFF? NO; ADD MORPH? NO; ADD SCAN? NO; ATYPICAL LYMPHOCYTE FLAG 0 (0-99); FRAGMENT RBC FLAG 0 (0-99); HEMOGLOBIN 11.4 g/dL (13.7-17.5); LEFT SHIFT FLG 0 (0-99); LIPEMIA HEMOLYSIS FLAG 80 (0-99); MEAN CELL HEMOGLOBIN 28.8 pg (27.9-34.1); MEAN CELL HEMOGLOBIN CONCENTR. 30.8 g/dL (32.4-36.7); MEAN CELL VOLUME 93.4 fL (81.5-99.8); PLATELET CLUMPS FLAG 10 (0-99); PLATELET COUNT 179 10^3/uL (150-400); RED BLOOD CELL COUNT 3.96 10^6/uL (4.40-6.38); RED CELL DISTRIBUTION WIDTH 13.6 % (11.5-15.2)
[2017-09-12 05:15] LABS: INR 2.02 (0.83-1.16)
[2017-09-12 05:19] LABS: ALBUMIN 2.9 g/dL (3.5-5.0); ANION GAP 8 mEq/L (8-16); CALCIUM 8.6 mg/dL (8.5-10.4); CARBON DIOXIDE 26 mEq/l (22-31); CHLORIDE 100 mEq/L (97-110); GLOMERULAR FILTRATION RATE 33; GLUCOSE 261 mg/dL (70-100); POTASSIUM 4.7 mEq/L (3.5-5.2); SODIUM 134 mEq/L (134-144)
[2017-09-12] MEDS: INSULIN LISPRO 100 UNIT/ML SC SCH ×3 (08:25→17:16)
[2017-09-12] MEDS: MYCOPHENOLATE MOFETIL 250 MG CAP PO SCH ×2 (08:25→20:35)
[2017-09-12] MEDS: LEVOTHYROXINE 50 MCG TAB PO SCH (08:26)
[2017-09-12] MEDS: predniSONE 5 MG TAB PO SCH (08:26)
[2017-09-12] MEDS: TACROLIMUS ANHYDROUS 0.5 MG CAP PO SCH ×2 (08:27→20:34)
[2017-09-12] MEDS: METOPROLOL TARTRATE 25 MG TAB PO SCH ×2 (08:27→20:34)
[2017-09-12] MEDS: ASPIRIN EC 81 MG TAB PO SCH (08:27)
[2017-09-12] MEDS ORDERED: NS 500 ML IV ONE (08:34)
--- NOTE | 2017-09-12 08:45 | SOAPPROG ---
SOAP Progress Note Assessment/Plan: Assessment: 1. Renal Transplant ESTUARDO, now near baseline. 2. Likely Charcot's feet Needs chronic supportive therapy 3. Delirium vs Dementia Will move to room with view. 4. On SSI. 5. Urine Cultures Given straight cathing at home, difficult to determine whether he has colonization or active infection. On Ceftriaxone. Plan: 09/12/17 08:43 Subjective: In good spirits Objective: Vital Signs Temp Pulse Resp BP Pulse Ox 36.8 C 65 16 109/84 H 96 09/12/17 07:04 09/12/17 08:27 09/12/17 07:04 09/12/17 08:27 09/12/17 07:04 Laboratory Results 09/12/17 04:45 09/12/17 04:45 09/11/17 09/12/17 09/13/17 05:59 05:59 05:59 Intake Total 1120 Output Total 2825 200 Balance -1705 -200 PT 23.0 SEC (12.0-15.0) H 09/12/17 04:45 INR 2.02 (0.83-1.16) H 09/12/17 04:45 Physical Exam - Physical Exam General Appearance: no apparent distress Respiratory: lungs clear Cardiac/Chest: regular rate, rhythm Extremities: pedal edema Neuro/Psych: alert (disoriented) ICD10 Worksheet Patient Problems: Problems Problem Status Onset Diabetes mellitus type 1 Acute Urinary tract infection Acute Afib - Atrial fibrillation Active CAD - Coronary arteriosclerosis Active Chronic kidney disease stage 5 Active History of - hypertension Active Tachycardia-bradycardia Active Chest pain Acute Chronic renal insufficiency Acute Dementia Acute ESBL (extended spectrum beta-lactamase) producing bacteria infection Acute ~08/04 Elevated troponin Acute Hyperglycemia Acute Hypoxia Acute 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
[2017-09-12] MEDS: TIMOLOL 0.5% 15 ML OPHT.BTL LEFTEYE SCH ×2 (09:15→20:42)
--- NOTE | 2017-09-12 11:46 | HOSPPROG ---
Hospitalist Progress Note Assessment/Plan: 71 yo M w/ hx of renal transplant, CKD, CAD s/p CABG, AF, DM1 c/b neurogenic bladder, dementia, and HFpEF presents after a fall with mild confusion. # Acute Encephalopathy -patient remains A&O x3 this am - slightly improved from yesterday - still believe likely multifactorial Oxygen saturations 93% on room air - treat UTI with ceftriaxone - optimize glycemic control - hydrate and follow clinical course # L foot metatarsal fractures - Mechanical fall on day prior to admission- patient unable to provide complete details of fall Left foot x-ray (personally reviewed and interpreted) multiple metatarsal fractures-Charcot deformities - supportive care per orthopedic surgery - WBAT - p.r.n. pain meds # poorly controlled diabetes- patient uses insulin pump at home however seems to confused to appropriately manage- BS remain high 250-300's overnight - DC insulin home pump - increase SSI to high dose this am # ESTUARDO on CKD, history of renal transplant - creatinine 2.6 -> 2.0 this am after stopping bactrim and gentle IVF - cont outpatient prednisone, tacrolimus, and MMF for immunosuppression. - Nephrology following - follow BMP # Complicated UTI w/ hx of colonization - Multiple UTI's with known Pseudomonas colonization as a result of neurogenic bladder - Started on Bactrim 09/09. Urine cultures 09/09 with E.coli sensitive to Ceftriaxone - cont ceftriaxone - cont straight cath TID # Hypovolemic Hyponatremia -sodium 131 -> 134 with gentle hydration - encourage PO - holding home lasix # Chronic diastolic HF - No evidence of volume overload on admission. # CAD s/p CABG - Denies chest pain; on ASA, statin, BB, and TAM as outpatient. - continuing all except TAM in setting of ESTUARDO # atrial fibrillation permanent - On warfarin for AC, BB and amiodarone - INR 2.02 - cont home meds - Monitor INR #Diet - diabetic #Code - Full # Ppx - full-dose anticoagulation # Dispo - >2MN presenting with multiple medical problems including encephalopathy will require greater than 1 midnight for medication titration monitoring and care I have discussed the case with RN - will increase the SSI today as BS remain poorly controlled Subjective: feels more oriented this am Objective: Vital Signs Temp Pulse Resp BP Pulse Ox 36.7 C 65 18 162/84 H 95 09/12/17 11:19 09/12/17 11:19 09/12/17 11:19 09/12/17 11:19 09/12/17 11:19 Laboratory Results 09/12/17 04:45 09/12/17 04:45 09/11/17 09/12/17 09/13/17 05:59 05:59 05:59 Intake Total 1120 950 Output Total 2825 900 Balance -1705 50 PT 23.0 SEC (12.0-15.0) H 09/12/17 04:45 INR 2.02 (0.83-1.16) H 09/12/17 04:45 - Physical Exam Constitutional: chronically ill appearing Eyes: anicteric sclera Ears, Nose, Mouth, Throat: moist mucous membranes Cardiovascular: regular rate and rhythym Respiratory: no respiratory distress Gastrointestinal: normoactive bowel sounds Genitourinary: no bladder fullness Skin: warm Musculoskeletal: No asymmetric calves Neurologic: AAOx3, other (oriented with minimal prompting- improved from yesterday) Psychiatric: No agitated Lymph, Heme, Immunologic: no cervical LAD ICD10 Worksheet Patient Problems: Problems Problem Status Onset Diabetes mellitus type 1 Acute Urinary tract infection Acute Afib - Atrial fibrillation Active CAD - Coronary arteriosclerosis Active Chronic kidney disease stage 5 Active History of - hypertension Active Tachycardia-bradycardia Active Chest pain Acute Chronic renal insufficiency Acute Dementia Acute ESBL (extended spectrum beta-lactamase) producing bacteria infection Acute ~08/04 Elevated troponin Acute Hyperglycemia Acute Hypoxia Acute 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
--- NOTE | 2017-09-12 14:25 | ASMTCMCOM ---
CM Note CM Note Notes: PT/OT recommending SNF vs 11/05 home care. Pt has some dementia and did not want to go to a SNF. Spoke with Angelica over the phone ([phone]). She lives in [facility] and prefers something close. Pt has [employer] Medicare and fewer facilities accept this. has private paid for [facility] in the past and would consider this again if needed. She asked for cost at [facility] which is $650/day. Pt has also been at [facility] in the past when they had just opened. was disappointed with pt's stay at [facility] but willing to discuss her concerns with them if they accept. Faxed referral to [facility] [place], [facility], [facility] on [address]. PASRR completed if needed. Date Signed: 09/12/2017 02:24 PM Electronically Signed By:Elen Nowak LCSW
[2017-09-12] MEDS: INSULIN GLARGINE 100 UNITS/ML SYRINGE SC SCH (15:01)
[2017-09-12] MEDS: WARFARIN SODIUM 2.5 MG TAB PO SCH (15:01)
[2017-09-12] MEDS: AMIODARONE HCL 200 MG TAB PO SCH (20:33)
[2017-09-12] MEDS: ATORVASTATIN CALCIUM 20 MG TAB PO SCH (20:33)
[2017-09-12] MEDS: LATANOPROST 0.005% 2.5 ML OPHT DROPS EACHEYE SCH (20:40)
[2017-09-12 22:19] LABS: GLUCOSE 312 mg/dL (70-100)
[2017-09-13 05:08] LABS: % IMMATURE GRANULYOCYTES 0.6 % (0.0-1.1); ABSOLUTE IMMATURE GRANULOCYTES 0.04 10^3/uL (0.00-0.10); ADD DIFF? NO; ADD MORPH? NO; ADD SCAN? NO; ATYPICAL LYMPHOCYTE FLAG 0 (0-99); FRAGMENT RBC FLAG 0 (0-99); HEMATOCRIT 35.1 % (40.0-51.0); HEMOGLOBIN 11.4 g/dL (13.7-17.5); LEFT SHIFT FLG 0 (0-99); LIPEMIA HEMOLYSIS FLAG 80 (0-99); MEAN CELL HEMOGLOBIN 29.8 pg (27.9-34.1); MEAN CELL HEMOGLOBIN CONCENTR. 32.5 g/dL (32.4-36.7); MEAN CELL VOLUME 91.6 fL (81.5-99.8); MEAN PLATELET VOLUME 9.8 fL (8.7-11.7); PLATELET CLUMPS FLAG 10 (0-99); PLATELET COUNT 181 10^3/uL (150-400); RED BLOOD CELL COUNT 3.83 10^6/uL (4.40-6.38); RED CELL DISTRIBUTION WIDTH 13.7 % (11.5-15.2)
[2017-09-13 05:12] LABS: INR 2.2 (0.83-1.16); PROTIME(PATIENT) 24.6 SEC (12.0-15.0)
[2017-09-13 07:48] VITALS: RESP 16
[2017-09-13] MEDS: INSULIN LISPRO 100 UNIT/ML SC SCH ×4 (08:10→21:41)
[2017-09-13] MEDS: LEVOTHYROXINE 50 MCG TAB PO SCH (08:40)
[2017-09-13] MEDS: MYCOPHENOLATE MOFETIL 250 MG CAP PO SCH ×2 (08:40→20:35)
[2017-09-13] MEDS: predniSONE 5 MG TAB PO SCH (08:40)
[2017-09-13] MEDS: ASPIRIN EC 81 MG TAB PO SCH (08:40)
[2017-09-13] MEDS: INSULIN GLARGINE 100 UNITS/ML SYRINGE SC SCH ×2 (08:43→20:36)
[2017-09-13] MEDS: METOPROLOL TARTRATE 25 MG TAB PO SCH ×2 (08:43→20:35)
[2017-09-13] MEDS: TIMOLOL 0.5% 15 ML OPHT.BTL LEFTEYE SCH ×2 (08:48→20:48)
[2017-09-13] MEDS: TACROLIMUS ANHYDROUS 0.5 MG CAP PO SCH ×2 (09:25→20:35)
[2017-09-13 10:40] LABS: GLUCOSE 254 mg/dL (70-100)
[2017-09-13 11:40] LABS: ALBUMIN 2.7 g/dL (3.5-5.0); ANION GAP 6 mEq/L (8-16); CALCIUM 8.5 mg/dL (8.5-10.4); CARBON DIOXIDE 28 mEq/l (22-31); CHLORIDE 98 mEq/L (97-110); CREATININE 1.5 mg/dL (0.7-1.3); GLOMERULAR FILTRATION RATE 46; GLUCOSE 254 mg/dL (70-100); POTASSIUM 3.9 mEq/L (3.5-5.2); SODIUM 132 mEq/L (134-144)
[2017-09-13] MEDS ORDERED: PROTOCOL K PHOSPHATE 1 DOSE IV PRN (12:33)
--- NOTE | 2017-09-13 12:44 | HOSPPROG ---
Hospitalist Progress Note Assessment/Plan: 71 yo M w/ hx of renal transplant, CKD, CAD s/p CABG, AF, DM1 c/b neurogenic bladder, dementia, and HFpEF presents after a fall with mild confusion. # ESTUARDO on CKD, history of renal transplant - creatinine 2.6 -> 1.5 this am - improved since dc of Bactrim and IVF Outpatient On prednisone, tacrolimus, and MMF for immunosuppression. - continue immunosuppression - restart TAM tomorrow # Fall, L foot injury - Mechanical fall on day prior to admission- patient unable to provide complete details of fall Left foot x-ray (personally reviewed and interpreted) multiple metatarsal fractures - bunny boots per ortho - WBAT - p.r.n. pain meds # Acute Encephalopathy -patient remains A&Ox3 with prompting- improved again today nearer baseline Oxygen saturations 93% on room air - cont treat UTI - change ceftriaxone to levofloxacin PO tomorrow - optimize glycemic control - follow clinical course # poorly controlled diabetes- patient uses insulin pump at home however seems to confused to appropriately manage- BS > 250 this a.m. - DC insulin home - increase lantus to 10 units BID - continue sliding scale insulin # Complicated UTI w/ hx of colonization - Multiple UTI's with known Pseudomonas colonization as a result of neurogenic bladder - Started on Bactrim 09/09. Urine culture results from 09/09- E.coli sensitive to ceftriaxone and fluoroquinolones - straight cath per home schedule # Hyponatremia -sodium 132 - pt more euvolemic now -after hydration - recheck BMP in am # Chronic diastolic HF - No evidence of volume overload on admission. # CAD s/p CABG - Denies chest pain; on ASA, statin, BB, and TAM as outpatient. Needs med reconciliation. # atrial fibrillation permanent - On warfarin for AC, BB and amiodarone also on medication list. - restart home meds after med reconciliation. - Monitor INR 2.2 this am #Diet - diabetic #Code - Full # Ppx - full-dose anticoagulation # Dispo - >2MN presenting with multiple medical problems including encephalopathy , ESTUARDO and UTI I have discussed the case with Dr. Butterfield - will send labs today to follow renal function Subjective: tolerating PO Objective: Vital Signs Temp Pulse Resp BP Pulse Ox 36.8 C 65 16 165/82 H 95 09/13/17 07:47 09/13/17 11:42 09/13/17 11:42 09/13/17 11:42 09/13/17 11:42 Laboratory Results 09/13/17 04:30 09/13/17 10:24 09/12/17 09/13/17 09/14/17 05:59 05:59 05:59 Intake Total 1120 1600 700 Output Total 2825 3100 945 Balance -1705 -1500 -245 PT 24.6 SEC (12.0-15.0) H 09/13/17 04:30 INR 2.20 (0.83-1.16) H 09/13/17 04:30 - Physical Exam Constitutional: no apparent distress Eyes: anicteric sclera Ears, Nose, Mouth, Throat: moist mucous membranes Cardiovascular: regular rate and rhythym Respiratory: no respiratory distress, no rales or rhonchi Gastrointestinal: normoactive bowel sounds, soft, non-tender abdomen Genitourinary: no bladder fullness Skin: warm Musculoskeletal: No asymmetric calves Neurologic: No facial droop Psychiatric: interacting appropriately, No agitated Lymph, Heme, Immunologic: no cervical LAD ICD10 Worksheet Patient Problems: Problems Problem Status Onset Diabetes mellitus type 1 Acute Urinary tract infection Acute Afib - Atrial fibrillation Active CAD - Coronary arteriosclerosis Active Chronic kidney disease stage 5 Active History of - hypertension Active Tachycardia-bradycardia Active Chest pain Acute Chronic renal insufficiency Acute Dementia Acute ESBL (extended spectrum beta-lactamase) producing bacteria infection Acute ~08/04 Elevated troponin Acute Hyperglycemia Acute Hypoxia Acute 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
[2017-09-13] MEDS ORDERED: K PHOS 10 MMOL in D5W 250 ML IV ONE (14:00)
[2017-09-13] MEDS: ATORVASTATIN CALCIUM 20 MG TAB PO SCH (20:35)
[2017-09-13] MEDS: AMIODARONE HCL 200 MG TAB PO SCH (20:35)
[2017-09-13] MEDS: LATANOPROST 0.005% 2.5 ML OPHT DROPS EACHEYE SCH (20:48)
[2017-09-14 04:41] LABS: ABSOLUTE IMMATURE GRANULOCYTES 0.07 10^3/uL (0.00-0.10); ADD DIFF? NO; ADD MORPH? NO; ADD SCAN? NO; ATYPICAL LYMPHOCYTE FLAG 0 (0-99); FRAGMENT RBC FLAG 0 (0-99); HEMATOCRIT 39.3 % (40.0-51.0); HEMOGLOBIN 12.7 g/dL (13.7-17.5); LEFT SHIFT FLG 10 (0-99); LIPEMIA HEMOLYSIS FLAG 80 (0-99); MEAN CELL HEMOGLOBIN CONCENTR. 32.3 g/dL (32.4-36.7); MEAN CELL VOLUME 92.7 fL (81.5-99.8); MEAN PLATELET VOLUME 9.3 fL (8.7-11.7); PLATELET CLUMPS FLAG 0 (0-99); PLATELET COUNT 209 10^3/uL (150-400); RED BLOOD CELL COUNT 4.24 10^6/uL (4.40-6.38); RED CELL DISTRIBUTION WIDTH 13.9 % (11.5-15.2)
[2017-09-14 04:56] LABS: ALBUMIN 3.1 g/dL (3.5-5.0); ANION GAP 7 mEq/L (8-16); CALCIUM 8.9 mg/dL (8.5-10.4); CARBON DIOXIDE 30 mEq/l (22-31); CHLORIDE 103 mEq/L (97-110); CREATININE 1.7 mg/dL (0.7-1.3); GLOMERULAR FILTRATION RATE 40; GLUCOSE 73 mg/dL (70-100); POTASSIUM 4.3 mEq/L (3.5-5.2); SODIUM 140 mEq/L (134-144)
[2017-09-14] MEDS: INSULIN LISPRO 100 UNIT/ML SC SCH ×3 (07:47→17:48)
--- NOTE | 2017-09-14 08:53 | SOAPPROG ---
SOAP Progress Note Assessment/Plan: Assessment:Plan: ARF on CRF-resolved -back to baseline UTI-on abx CKD-baseline creatinine 1.7-2 -avoid NSAIDs and contrast Renal Transplant-since 1995 at [facility] in [place] -had ESRD due to DM -continue immunosuppressants of pred, tacrolimus and mycophenolate Dispo-pending 09/14/17 08:52 Subjective: stable overnite, did better with PT today per verbal report Objective: Vital Signs Temp Pulse Resp BP Pulse Ox 36.3 C 83 16 176/89 H 99 09/14/17 00:00 09/14/17 07:37 09/14/17 07:37 09/14/17 07:37 09/14/17 07:37 Laboratory Results 09/14/17 04:21 09/14/17 04:21 09/13/17 09/14/17 09/15/17 05:59 05:59 05:59 Intake Total 1600 1853 Output Total 3100 1885 Balance -1500 -32 PT 24.6 SEC (12.0-15.0) H 09/13/17 04:30 INR 2.20 (0.83-1.16) H 09/13/17 04:30 Physical Exam - Physical Exam General Appearance: WD/WN, alert, no apparent distress EENT: normal ENT inspection, other (decreased vision) Neck: normal inspection Respiratory: decreased breath sounds, No respiratory distress Cardiac/Chest: regular rate, rhythm, systolic murmur Abdomen: normal bowel sounds, non-tender, soft, No distended Skin: normal color, warm/dry, other (chronic changes from sun exposure, skin cancer therapies) Extremities: No swelling Neuro/Psych: alert, normal mood/affect, other (decreased memory) ICD10 Worksheet Patient Problems: Problems Problem Status Onset Diabetes mellitus type 1 Acute Urinary tract infection Acute Afib - Atrial fibrillation Active CAD - Coronary arteriosclerosis Active Chronic kidney disease stage 5 Active History of - hypertension Active Tachycardia-bradycardia Active Chest pain Acute Chronic renal insufficiency Acute Dementia Acute ESBL (extended spectrum beta-lactamase) producing bacteria infection Acute ~08/04 Elevated troponin Acute Hyperglycemia Acute Hypoxia Acute 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
[2017-09-14 09:24] LABS: INR 1.73 (0.83-1.16); PROTIME(PATIENT) 20.3 SEC (12.0-15.0)
[2017-09-14] MEDS: INSULIN GLARGINE 100 UNITS/ML SYRINGE SC SCH ×2 (09:33→20:25)
[2017-09-14] MEDS: TACROLIMUS ANHYDROUS 0.5 MG CAP PO SCH ×2 (09:34→20:25)
[2017-09-14] MEDS: LEVOTHYROXINE 50 MCG TAB PO SCH (09:35)
[2017-09-14] MEDS: MYCOPHENOLATE MOFETIL 250 MG CAP PO SCH ×2 (09:35→20:23)
[2017-09-14] MEDS: ASPIRIN EC 81 MG TAB PO SCH (09:35)
[2017-09-14] MEDS: METOPROLOL TARTRATE 25 MG TAB PO SCH ×2 (09:35→20:24)
[2017-09-14] MEDS: predniSONE 5 MG TAB PO SCH (09:35)
--- NOTE | 2017-09-14 10:05 | PDIAF ---
- Diagnosis Diagnosis: ESTUARDO and UTI Code Status: Full Code - Medication Management Discharge Medications: Medications to Continue on Transfer Amiodarone HCl [Pacerone (*)] 200 mg PO HS 02/11/17 [Last Taken 09/10/17] Furosemide [Lasix 20 MG (*)] 10 mg PO DAILY 02/11/17 [Last Taken 09/10/17] Latanoprost 0.005% [Xalatan 0.005% (*)] 1 drops EACHEYE HS 02/11/17 [Last Taken 09/10/17] Levothyroxine [Synthroid 50 mcg (*)] 50 mcg PO DAILY 02/11/17 [Last Taken ] Metoprolol Tartrate [Lopressor 25 mg (*)] 25 mg PO BID 02/11/17 [Last Taken ] Mycophenolate Mofetil [Cellcept] 750 mg PO BID 02/11/17 [Last Taken 09/10/17] Quinapril HCl [Accupril 5 mg] 5 mg PO HS 02/11/17 [Last Taken 09/10/17] Tacrolimus Anhydrous [Prograf 0.5 MG (*)] 1.5 mg PO BID 02/11/17 [Last Taken ] Timolol 0.5% [TIMOPTIC 0.5% (*)] 1 drops LEFTEYE BID 02/11/17 [Last Taken ] predniSONE 5 mg PO DAILY 02/11/17 [Last Taken 09/10/17] Aspirin EC [Aspirin EC 81 mg (*)] 81 mg PO DAILY 06/30/17 [Last Taken 09/10/17] Warfarin Sodium [Coumadin 2.5MG (*)] 2.5 mg PO [facility]ENFR[facility]@16 06/30/17 [Last Taken 09/10/17] Atorvastatin Calcium [Lipitor 20 mg (*)] 20 mg PO HS 09/11/17 [Last Taken ] Insulin Glargine [Lantus 100 UNITS/ML (*)] 10 units SC BID ml 09/14/17 [Last Taken Unknown] Insulin Lispro [humALOG LISPRO 100 units/ml (*)] 0 unit SC TIDMEAL unit [Last Taken Unknown] levOFLOXACIN [levAQUIN (*)] 750 mg PO Q48H #2 tab 09/14/17 [Last Taken Unknown] Discharge Medications: Refer to the Discharge Home Medication list for PRN reason. - Orders Services needed: Registered Nurse, Physical Therapy, Occupational Therapy, Speech Language Pathologist Isolation Type: Contact Isolation Diet Recommendation: cardiac -low fat low salt Diet Texture: Regular Texture Diet - Follow Up Care Current Providers and Referrals: Mega Leroy MD [Primary Care Provider] - As per Instructions
[2017-09-14] MEDS: TIMOLOL 0.5% 15 ML OPHT.BTL LEFTEYE SCH (10:06)
--- NOTE | 2017-09-14 15:54 | HOSPPROG ---
Hospitalist Progress Note Assessment/Plan: 71 yo M w/ hx of renal transplant, CKD, CAD s/p CABG, AF, DM1 c/b neurogenic bladder, dementia, and HFpEF presents after a fall with mild confusion. # ESTUARDO on CKD, history of renal transplant - creatinine 2.6 -> 1.7 this am - improved since dc of Bactrim and IVF Outpatient On prednisone, tacrolimus, and MMF for immunosuppression. - continue immunosuppression # Fall, L foot injury - Mechanical fall on day prior to admission- patient unable to provide complete details of fall Left foot x-ray (personally reviewed and interpreted) multiple metatarsal fractures - bunny boots per ortho - WBAT - p.r.n. pain meds # Acute Encephalopathy -patient remains A&Ox3 with prompting- improved again today nearer baseline Oxygen saturations 93% on room air - cont treat UTI - change ceftriaxone to levofloxacin PO - optimize glycemic control - follow clinical course # poorly controlled diabetes- patient uses insulin pump at home however seems to confused to appropriately manage- BS > 73 this a.m. - DC insulin home pump as SNF has struggled with this in past - increase lantus to 10 units BID - continue sliding scale insulin # Complicated UTI w/ hx of colonization - Multiple UTI's with known Pseudomonas colonization as a result of neurogenic bladder - Started on Bactrim 09/09. Urine culture results from 09/09- E.coli sensitive to ceftriaxone and fluoroquinolones - straight cath per home schedule # Hyponatremia -sodium 140 - pt more euvolemic now -after hydration - recheck BMP in am # Chronic diastolic HF - No evidence of volume overload on admission. # CAD s/p CABG - Denies chest pain; on ASA, statin, BB, and TAM as outpatient. Needs med reconciliation. # atrial fibrillation permanent - On warfarin for AC, BB and amiodarone also on medication list. - restart home meds after med reconciliation. - Monitor INR 1.7 this am #Diet - diabetic #Code - Full # Ppx - full-dose anticoagulation # Dispo - >2MN presenting with multiple medical problems including encephalopathy , ESTUARDO and UTI I have discussed the case with RN- Lantus has helped glycemic control - pt thought process improved Subjective: good appetite - denies pain Objective: Vital Signs Temp Pulse Resp BP Pulse Ox 36.3 C 67 16 176/89 H 99 09/14/17 00:00 09/14/17 09:35 09/14/17 07:37 09/14/17 09:35 09/14/17 07:37 Laboratory Results 09/14/17 04:21 09/14/17 04:21 09/13/17 09/14/17 09/15/17 05:59 05:59 05:59 Intake Total 1600 1853 400 Output Total 3100 1885 1050 Balance -1500 -32 -650 PT 20.3 SEC (12.0-15.0) H 09/14/17 09:00 INR 1.73 (0.83-1.16) H 09/14/17 09:00 - Physical Exam Constitutional: no apparent distress Eyes: anicteric sclera Ears, Nose, Mouth, Throat: moist mucous membranes Cardiovascular: regular rate and rhythym Respiratory: no respiratory distress Gastrointestinal: normoactive bowel sounds, soft, non-tender abdomen Genitourinary: no bladder fullness Skin: warm Musculoskeletal: No asymmetric calves Neurologic: AAOx3 Psychiatric: interacting appropriately Lymph, Heme, Immunologic: no cervical LAD ICD10 Worksheet Patient Problems: Problems Problem Status Onset Diabetes mellitus type 1 Acute Urinary tract infection Acute Afib - Atrial fibrillation Active CAD - Coronary arteriosclerosis Active Chronic kidney disease stage 5 Active History of - hypertension Active Tachycardia-bradycardia Active Chest pain Acute Chronic renal insufficiency Acute Dementia Acute ESBL (extended spectrum beta-lactamase) producing bacteria infection Acute ~08/04 Elevated troponin Acute Hyperglycemia Acute Hypoxia Acute 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
--- NOTE | 2017-09-14 15:59 | ASMTCMCOM ---
CM Note CM Note Notes: [facility] accepted patient but was unable to get insurance authorization from [employer] today. I also had our UR department send clinicals and place a call, but we never heard back from [employer]. Hospitalist cancelled discharge order, and I informed patient's of the situation. Everyone is very understanding. Hopefully, patient can discharge to SNF tomorrow. Date Signed: 09/14/2017 03:58 PM Electronically Signed By:Daniela Rodriguez RN
[2017-09-14] MEDS: WARFARIN SODIUM 2.5 MG TAB PO SCH (16:41)
--- NOTE | 2017-09-14 18:01 | GDS ---
[f rep st] DISCHARGE SUMMARY DISCHARGE DIAGNOSES: Include: 1. Acute on chronic kidney disease. 2. History of renal transplantation. 3. Acute encephalopathy secondary to acute urinary tract infection. 4. Complicated urinary tract infection. 5. Uncontrolled diabetes. 6. Metatarsal fracture of the left foot. 7. Hyponatremia, thought hypovolemic. 8. Chronic diastolic dysfunction. 9. Coronary artery disease, status post coronary artery bypass graft. 10. Atrial fibrillation, on chronic anticoagulation. HISTORY OF PRESENT ILLNESS: This is a 71-year-old male, who presents from home with his with co nfusion and acute fall. For details of the patient's initial presentation, please see the History an d Physical dated 09/11/2017. HOSPITAL COURSE: By issue: 1. Acute urinary tract infection. Patient's urinalysis was abnormal, culture grew E coli sensitive to both ceftriaxone and fluoroquinolones. The patient initially received IV ceftriaxone, was transit ioned to oral levofloxacin renally dosed at disposition. 2. Acute kidney injury on chronic kidney disease. Patient presented with a creatinine of 2.6; on da y of disposition, is improved with fluids and treatment of his UTI to 1.7, which is baseline for him. He is continued on his home medications at disposition. 3. History of renal transplantation, on immunosuppression. The patient was continued on his immunos uppression throughout this hospital stay. 4. Poorly controlled diabetes. Patient uses an insulin pump at home. It appears that his confusion led to poor glycemic control. The patient was initiated on sliding scale insulin in addition to [place] dosing during his hospital stay. He will be discharged on twice daily Lantus 10 units with slidi ng scale in between while at the fpc facility. They can transition him back to his insul in pump use upon returning home. 5. Coronary artery disease. Patient did not have chest pain complaints during this hospital stay. Was continued on his cardiac regimen without change. 6. Hypovolemic hyponatremia. Patient presented with a low serum sodium. Received fluid resuscitati on. Day of disposition, his sodium is 140. 7. Permanent atrial fibrillation. Patient was continued on his home dosing of anticoagulation. His INR has ranged between 1.7 and 2.2, would keep this dosing at this time and continue to monitor at t fpc facility. 8. Hypothyroidism. The patient was continued on 50 mcg of Synthroid without change. MEDICATIONS AT THE TIME OF TRANSFER: Please reference med rec printed on 09/14/2017. FOLLOWUP APPOINTMENTS: Include with fpc, and ultimately his outpatient nephrology team a nd primary care team. PENDING STUDIES: At the time of this dictation, are none. TIME SPENT: I spent greater than 30 minutes in the planning and coordination of this discharge. /[id number]/MODL
[2017-09-14 18:20] LABS: GLUCOSE 312 mg/dL (70-100)
[2017-09-14] MEDS: ATORVASTATIN CALCIUM 20 MG TAB PO SCH (20:24)
[2017-09-14] MEDS: AMIODARONE HCL 200 MG TAB PO SCH (22:09)
[2017-09-15] MEDS: INSULIN LISPRO 100 UNIT/ML SC SCH ×4 (00:45→17:30)
[2017-09-15] MEDS: TIMOLOL 0.5% 15 ML OPHT.BTL LEFTEYE SCH ×2 (04:50→09:52)
[2017-09-15] MEDS: LATANOPROST 0.005% 2.5 ML OPHT DROPS EACHEYE SCH (04:50)
[2017-09-15 05:16] LABS: % IMMATURE GRANULYOCYTES 1.1 % (0.0-1.1); ABSOLUTE IMMATURE GRANULOCYTES 0.06 10^3/uL (0.00-0.10); ADD DIFF? NO; ADD MORPH? NO; ADD SCAN? NO; ATYPICAL LYMPHOCYTE FLAG 0 (0-99); FRAGMENT RBC FLAG 0 (0-99); HEMATOCRIT 35.8 % (40.0-51.0); HEMOGLOBIN 11.1 g/dL (13.7-17.5); LEFT SHIFT FLG 10 (0-99); LIPEMIA HEMOLYSIS FLAG 80 (0-99); MEAN CELL HEMOGLOBIN 28.8 pg (27.9-34.1); MEAN PLATELET VOLUME 9.8 fL (8.7-11.7); PLATELET CLUMPS FLAG 0 (0-99); PLATELET COUNT 185 10^3/uL (150-400); RED BLOOD CELL COUNT 3.85 10^6/uL (4.40-6.38); RED CELL DISTRIBUTION WIDTH 13.7 % (11.5-15.2)
[2017-09-15 05:26] LABS: INR 1.86 (0.83-1.16); PROTIME(PATIENT) 21.5 SEC (12.0-15.0)
[2017-09-15 05:30] LABS: ALBUMIN 2.7 g/dL (3.5-5.0); ANION GAP 5 mEq/L (8-16); CALCIUM 8.6 mg/dL (8.5-10.4); CARBON DIOXIDE 29 mEq/l (22-31); CHLORIDE 104 mEq/L (97-110); CREATININE 1.6 mg/dL (0.7-1.3); GLOMERULAR FILTRATION RATE 43; GLUCOSE 80 mg/dL (70-100); POTASSIUM 4.6 mEq/L (3.5-5.2); SODIUM 138 mEq/L (134-144)
--- NOTE | 2017-09-15 08:35 | SOAPPROG ---
SOAP Progress Note Assessment/Plan: Assessment:Plan: ARF on CRF-resolved -back to baseline UTI-on abx Neurogenic bladder-needs straight cath three times daily - has been able to do this easily at home, but has been called in to hospital to assist when staff has difficulty here -logistically this is difficult, and would be more difficult while at rehab -eugeniaay to maintain indwelling quach for one week CKD-baseline creatinine 1.7-2 -avoid NSAIDs and contrast Renal Transplant-since 1995 at [facility] in [place] -had ESRD due to DM -continue immunosuppressants of pred, tacrolimus and mycophenolate Constipation-discussed with RN -dandre to try prune juice Dispo-pending -likely to [facility] 09/15/17 08:32 Subjective: stable overnite Objective: Vital Signs Temp Pulse Resp BP Pulse Ox 36.9 C 73 16 154/99 H 97 09/14/17 23:39 09/15/17 08:00 09/15/17 08:00 09/15/17 08:00 09/15/17 08:00 Laboratory Results 09/15/17 04:55 09/15/17 04:55 09/14/17 09/15/17 09/16/17 05:59 05:59 05:59 Intake Total 1853 800 Output Total 1885 2150 Balance -32 -1350 PT 21.5 SEC (12.0-15.0) H 09/15/17 04:55 INR 1.86 (0.83-1.16) H 09/15/17 04:55 Physical Exam - Physical Exam General Appearance: alert, no apparent distress EENT: normal ENT inspection, other (decreased vision) Neck: normal inspection Respiratory: lungs clear, normal breath sounds, No respiratory distress Cardiac/Chest: regular rate, rhythm, systolic murmur Abdomen: normal bowel sounds, non-tender, soft, other (LLQ renal allograft), No organomegaly Back: Normal inspection Skin: normal color, warm/dry, other (chronic changes) Extremities: No swelling Neuro/Psych: alert, normal mood/affect, oriented x 3 ICD10 Worksheet Patient Problems: Problems Problem Status Onset Diabetes mellitus type 1 Acute Urinary tract infection Acute Afib - Atrial fibrillation Active CAD - Coronary arteriosclerosis Active Chronic kidney disease stage 5 Active History of - hypertension Active Tachycardia-bradycardia Active Chest pain Acute Chronic renal insufficiency Acute Dementia Acute ESBL (extended spectrum beta-lactamase) producing bacteria infection Acute ~08/04 Elevated troponin Acute Hyperglycemia Acute Hypoxia Acute 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
[2017-09-15] MEDS: MYCOPHENOLATE MOFETIL 250 MG CAP PO SCH (09:50)
[2017-09-15] MEDS: METOPROLOL TARTRATE 25 MG TAB PO SCH (09:50)
[2017-09-15] MEDS: predniSONE 5 MG TAB PO SCH (09:50)
[2017-09-15] MEDS: TACROLIMUS ANHYDROUS 0.5 MG CAP PO SCH (09:50)
[2017-09-15] MEDS: LEVOTHYROXINE 50 MCG TAB PO SCH (09:50)
[2017-09-15] MEDS: ASPIRIN EC 81 MG TAB PO SCH (09:51)
[2017-09-15] MEDS: INSULIN GLARGINE 100 UNITS/ML SYRINGE SC SCH (09:51)
[2017-09-15 13:02] LABS: GLUCOSE 273 mg/dL (70-100)
[2017-09-15 15:49] VITALS: BP 118/69; PULSE 74; TEMP 98; O2SAT 94
--- NOTE | 2017-09-15 15:55 | PDIAF ---
- Diagnosis Diagnosis: ESTUARDO and UTI Code Status: Full Code - Medication Management Discharge Medications: Medications to Continue on Transfer Amiodarone HCl [Pacerone (*)] 200 mg PO HS 02/11/17 [Last Taken 09/10/17] Furosemide [Lasix 20 MG (*)] 10 mg PO DAILY 02/11/17 [Last Taken 09/10/17] Latanoprost 0.005% [Xalatan 0.005% (*)] 1 drops EACHEYE HS 02/11/17 [Last Taken 09/10/17] Levothyroxine [Synthroid 50 mcg (*)] 50 mcg PO DAILY 02/11/17 [Last Taken ] Metoprolol Tartrate [Lopressor 25 mg (*)] 25 mg PO BID 02/11/17 [Last Taken ] Mycophenolate Mofetil [Cellcept] 750 mg PO BID 02/11/17 [Last Taken 09/10/17] Quinapril HCl [Accupril 5 mg] 5 mg PO HS 02/11/17 [Last Taken 09/10/17] Tacrolimus Anhydrous [Prograf 0.5 MG (*)] 1.5 mg PO BID 02/11/17 [Last Taken ] Timolol 0.5% [TIMOPTIC 0.5% (*)] 1 drops LEFTEYE BID 02/11/17 [Last Taken ] predniSONE 5 mg PO DAILY 02/11/17 [Last Taken 09/10/17] Aspirin EC [Aspirin EC 81 mg (*)] 81 mg PO DAILY 06/30/17 [Last Taken 09/10/17] Warfarin Sodium [Coumadin 2.5MG (*)] 2.5 mg PO [facility]@16 06/30/17 [Last Taken 09/10/17] Atorvastatin Calcium [Lipitor 20 mg (*)] 20 mg PO HS 09/11/17 [Last Taken ] Insulin Glargine [Lantus 100 UNITS/ML (*)] 10 units SC BID ml 09/14/17 [Last Taken Unknown] Insulin Lispro [humALOG LISPRO 100 units/ml (*)] 0 unit SC TIDMEAL unit [Last Taken Unknown] levOFLOXACIN [levAQUIN (*)] 750 mg PO Q48H #2 tab 09/14/17 [Last Taken Unknown] Discharge Medications: Refer to the Discharge Home Medication list for PRN reason. - Orders Services needed: Registered Nurse, Physical Therapy, Occupational Therapy, Speech Language Pathologist Isolation Type: Contact Isolation Diet Recommendation: cardiac -low fat low salt Diet Texture: Regular Texture Diet - Follow Up Care Current Providers and Referrals: Mega Leroy MD [Primary Care Provider] - As per Instructions Patric Goldman MD [Medical Doctor] -
--- NOTE | 2017-09-15 16:00 | PDDCSUM ---
Discharge Summary Discharge Summary: DISCHARGE DIAGNOSES: -acute acute disease, resolved back to baseline -history of renal transplant -acute encephalopathy, resolved -complicated urinary tract infection -uncontrolled diabetes mellitus -metatarsal fracture of left foot -hypovolemic hyponatremia, resolved -stable heart disease CONSULTANTS: Dr. Patric Goldman PROCEDURES: None HOSPITAL COURSE SUMMARY: This patient who has multiple episodes of encephalopathy usually for infection came in confused and with a fall injury and nonsurgical foot fracture. He had evident gin of urinary tract infection for which she was treated and recovered well. He did have some acute renal failure which felt back to his baseline during his stay. He does have a renal transplant that seems to be stable. There have been no other complications here. He has chronic heart disease which was stable during his hospital stay. PENDING TEST RESULTS: New none MEDICATION CHANGES: None FOLLOW-UP PLAN: He is transferred to a longterm facility this time for ongoing physical therapy real dilatation and planned for home after at Greater than 35 minutes bedside and care coordination time today
[2017-09-15] MEDS: WARFARIN SODIUM 2.5 MG TAB PO SCH (16:25)
--- NOTE | 2017-09-16 09:58 | ASDISCHSUM ---
Discharge Information Plan Status:SNF Medically Cleared to Leave: Discharge Date:09/15/2017 06:53 PM CM D/C Disposition:Longterm Facility ADT D/C Disposition:Longterm Facility Projected Discharge Date:09/14/2017 11:00 AM Transportation at D/C:Wheelchair Van Discharge Delay Reason: Follow-Up Date:09/14/2017 11:00 AM Discharge Slot: Final Diagnosis: Placement Information Referral Type:*[facility]/SNF Referral ID:[id number] Provider Name: Address 1: Phone Number: Address 2: Fax Number: City: Selection Factors: State: Patient Contact Information Contact Name:CHAZ Relationship: Address:[address] [place] City:[place] Alternate Phone: [facility]/Zip Code:[place] [address] Email: Financial Information Financial Class:Medicare Advantage Plans Primary Plan Desc:[employer] MEDICARE ADV Primary Plan Number:[id number] Secondary Plan Desc: Secondary Plan Number: Assessment Information [facility] CM Progress Note CM Note CM Note Notes: Pt admitted after a fall with L toe fx, encephalopathy, UTI. Hx CKD, renal transplant, CABG, DM1, dementia. A&Ox2. Lives with his . PT/OT evals pending. Family not present at this time. CM will follow for any d/c needs. Date Signed: 09/11/2017 02:24 PM Electronically Signed By:ERIK Wade [facility] CM Progress Note CM Note CM Note Notes: PT/OT recommending SNF vs 11/05 home care. Pt has some dementia and did not want to go to a SNF. Spoke with Angelica over the phone ([phone]). She lives in [place] and prefers something close. Pt has [employer] Medicare and fewer facilities accept this. has private paid for [facility] in the past and would consider this again if needed. She asked for cost at [facility] which is $650/day. Pt has also been at [facility] in the past when they had just opened. was disappointed with pt's stay at [facility] but willing to discuss her concerns with them if they accept. Faxed referral to [facility], [facility], [facility], [facility] [address] and [employer] PASRR completed if needed. Date Signed: 09/12/2017 02:24 PM Electronically Signed By:Elen Nowak LCSW [facility] CM Progress Note CM Note CM Note Notes: [facility] SNF accepted patient but was unable to get insurance authorization from [employer] today. I also had our UR department send clinicals and place a call, but we never heard back from [employer]. Hospitalist cancelled discharge order, and I informed patient's of the situation. Everyone is very understanding. Hopefully, patient can discharge to SNF tomorrow. Date Signed: 09/14/2017 03:58 PM Electronically Signed By:Daniela Rodriguez RN Case Management Discharge Plan Note Case Management Discharge Discharge Order Complete? Answers: Yes Patient to Obtain Answers: Other Notes: SNF Medications Transportation Arranged Answers: Other Notes: SNF wc Transport will Pick (Date 09/15/2017 06:00 PM & Time) Faxed Final Orders Answers: No Notes: Sent in [employer] Agency/Facility Transfer Answers: Yes Report Printed & Faxed to Receiving Agency Family Notified Answers: Yes Discharge Comments Notes: Late in the day [employer] authorized placement at [facility]. WC transport scheduled by Taisha CLARK for 1800. SOPHIA Adler states wc is appropriate transport. New orders from today sent in [employer]. Date Signed: 09/15/2017 04:15 PM Electronically Signed By:ERIK Knott Intervention Information
== END 2017-09-15 18:53 | DRG 689 ==
LOC: F3N 03:47 → OBSVTOIN 11:01 → F3N 09-12 10:18
PROVIDERS: ADMIT Student in an Organized Health Care Education/Training Program; ATTEND Student in an Organized Health Care Education/Training Program
DX: N39.0 Urinary tract infection, site not specified (principal); B96.20 Unspecified Escherichia coli [E. coli] as the cause of diseases classified elsewhere; G93.40 Encephalopathy, unspecified; E87.1 Hypo-osmolality and hyponatremia; S92.352A Displaced fracture of fifth metatarsal bone, left foot, initial encounter for closed fracture; W06.XXXA Fall from bed, initial encounter; Y92.003 Bedroom of unspecified non-institutional (private) residence as the place of occurrence of the external cause; E10.21 Type 1 diabetes mellitus with diabetic nephropathy; E10.22 Type 1 diabetes mellitus with diabetic chronic kidney disease; N17.9 Acute kidney failure, unspecified; N18.9 Chronic kidney disease, unspecified; E10.610 Type 1 diabetes mellitus with diabetic neuropathic arthropathy; I50.32 Chronic diastolic (congestive) heart failure; N31.9 Neuromuscular dysfunction of bladder, unspecified; K59.00 Constipation, unspecified; I48.2 Chronic atrial fibrillation; I48.92 Unspecified atrial flutter; E03.9 Hypothyroidism, unspecified; I25.10 Atherosclerotic heart disease of native coronary artery without angina pectoris; I25.2 Old myocardial infarction; Z79.01 Long term (current) use of anticoagulants; Z99.3 Dependence on wheelchair; Z96.41 Presence of insulin pump (external) (internal); Z79.4 Long term (current) use of insulin; Z95.1 Presence of aortocoronary bypass graft; Z95.0 Presence of cardiac pacemaker; Z86.73 Personal history of transient ischemic attack (TIA), and cerebral infarction without residual deficits; Z94.0 Kidney transplant status; Z89.429 Acquired absence of other toe(s), unspecified side
CPT/HCPCS: 80197-90; 82947-QW; 97110-GP; 97116-GP; 97162-GP; 97166-GO; 97530-GO; 97530-GP; 97535-GO; G8978-GP-CL; G8979-GP-CK; G8987-GO-CL; G8988-GO-CJ; J0696; J1815

== ENCOUNTER 2017-11-15 13:10 | Emergency (ER) | payer OTHER ==
[2017-11-15 13:23] VITALS: RESP 18; TEMP 99.5
--- NOTE | 2017-11-15 13:57 | EDPHY ---
H & P Time Seen by Provider: 11/15/17 13:25 HPI/ROS: CHIEF COMPLAINT: Right shoulder pain, urinary tract infection, he will infection HISTORY OF PRESENT ILLNESS: Patient is a 72-year-old male with multiple medical problems including atrial fibrillation, diabetes, renal transplant, a and dementia who presents to the emergency department with multiple complaints. For the past 10 days he has had right shoulder pain. He saw an orthopedic physician, Dr. Dill, who performed x-rays. These were negative and the patient was given a cortisone shot on Thursday. He continues to have mild right shoulder pain. No redness or warmth. No numbness or tingling. The patient also complains of an ongoing right heel ulcer. He was seen on Thursday by Dr. Turner. He was determined to have an infection in his heel and was started on Augmentin. This is remained unchanged since his visit with the corporate travel consultant. Patient also is noted to have a urinary tract infection. Per report the patient has chronic Pseudomonas infection. He had a urine culture ordered which showed Pseudomonas infection currently. Patient denies any dysuria or frequency. No fevers or chills. No abdominal pain. No nausea or vomiting. The patient has persistently had elevated glucose above 300 for the past week. This is not responding to treatment with insulin at home. He was called by Dr. Butterfield's office and told to come to the emergency department for further evaluation. REVIEW OF SYSTEMS: My complete review of systems is negative except as mentioned in the HPI. Past Medical/Surgical History: Includes hypothyroidism, hypertension, AFib, atrial flutter, diabetes, UTI, chronic hypoxemia, dementia, CVA Past surgical history: Includes CABG, pacer placement Social history: The patient is Smoking Status: Never smoked Physical Exam: 37.5, 164/107, 65 (in room - documented as 8 in triage) GENERAL: Well-appearing, in no acute distress, alert. HEENT: Eyes normal to inspection, normal pharynx, no signs of dehydration. NECK: No thyromegaly, no lymphadenopathy, supple. RESPIRATORY: Clear to auscultation bilaterally, no rales, rhonchi or wheezing. CVS: Regular rate and rhythm, no rubs, murmurs, or gallops. ABDOMEN: Soft, nontender, nondistended, no organomegaly. BACK: Normal to inspection, no CVA tenderness. SKIN: Normal color, no rash, warm, dry. No pallor. EXTREMITIES: Left shoulder has a surgical scar. Patient's right shoulder appears normal. There is no warmth or redness. No tenderness to palpation. Neurovascular intact distally. No pedal edema, no calf tenderness, no Homans sign or cords. Patient has his right foot dressed for heel ulcer care. NEURO/PSYCH: Alert and oriented, normal mood and affect, normal motor sensory exam. No obvious cranial nerve deficit. Constitutional: Initial Vital Signs Temperature (C) 37.5 C 11/15/17 13:18 Heart Rate 8 L 11/15/17 13:18 Respiratory Rate 18 11/15/17 13:18 Blood Pressure 164/107 H 11/15/17 13:18 O2 Sat (%) 100 11/15/17 13:18 O2 Delivery Mode Room Air O2 (L/minute) 3 Allergies/Adverse Reactions: No Known Allergies Allergy (Verified 09/11/17 02:00) Home Medications: Medication Instructions Recorded Amiodarone HCl 11/15/17 Aspirin 11/15/17 Cellcept 11/15/17 Coumadin 11/15/17 Lasix 11/15/17 Levothyroxine 11/15/17 Lipitor 11/15/17 Metoprolol Succinate 11/15/17 Prednisolone 11/15/17 Prograf 11/15/17 Quinapril HCl 11/15/17 novoLOG 11/15/17 Medical Decision Making ED Course/Re-evaluation: In the emergency department I discussed possible etiologies with the patient. I answered all his questions. I reviewed the patient's culture results from . It showed PS. Aeruginosa carbapenem "R". Laboratory studies were ordered. I did not repeat x-rays on the patient's right shoulder. I discussed the case with Dr. Singh from Nephrology. She recommended I contact Dr. Villegas from Infectious Disease. Patient's CBC is unremarkable. The patient's chemistry panel is notable for creatinine of 1.6. I compared this with previous creatinine and this is consistent with reported values. Patient has elevated glucose at 346. There is no anion gap. EKG: Atrial ventricular dual paced rhythm at 65 14 50: I discussed the case with Dr. Per Loyola from Infectious Disease. He will review the patient's record and call me back. I again discussed the case with Dr. Per Loyola after reviewed the medical record. He felt that the patient does not need to be treated for his culture results. I discussed this plan with the patient and family. I answered all her questions. He will follow up with Ortho for shoulder pain. He will follow up with Dr. Butterfield for his recheck on renal function. Patient also follow up with his primary care physician. This will be to evaluate ongoing elevated glucose. It is noted the patient received a cortisone shot and has a heel infection which could contribute to his elevated glucose. He is not appear to have an anion gap at this time. They are given warnings prior to leaving. He will return with worsening symptoms. Differential Diagnosis: My differential includes but is not limited to diabetes, DKA, HONK, cellulitis, abscess, bacteremia, sepsis, urinary tract infection, pyelonephritis, renal insufficiency, transplant complication, septic joint, arthritis, fracture, dislocation - Data Points Laboratory Results: Laboratory Results 11/15/17 13:52 11/15/17 13:52 11/15/17 11/15/17 11/15/17 14:50 13:52 13:52 WBC RBC Hgb Hct MCV MCH MCHC RDW Plt Count MPV Neut % (Auto) Lymph % (Auto) [place] % (Auto) Eos % (Auto) Baso % (Auto) Nucleat RBC Rel Count Absolute Neuts (auto) Absolute Lymphs (auto) Absolute Monos (auto) Absolute Eos (auto) Absolute Basos (auto) Absolute Nucleated RBC Immature Gran % Immature Gran # PT 22.5 SEC H SEC (12.0-15.0) INR 1.97 H (0.83-1.16) APTT 31.9 SEC SEC (23.0-38.0) Sodium 135 mEq/L mEq/L (135-145) Potassium 5.0 mEq/L mEq/L (3.5-5.2) Chloride 99 mEq/L mEq/L (97-110) Carbon Dioxide 27 mEq/l mEq/l (22-31) Anion Gap 9 mEq/L mEq/L (8-16) BUN 29 mg/dL H mg/dL (7-23) Creatinine 1.6 mg/dL H mg/dL (0.7-1.3) Estimated GFR 42 Glucose 346 mg/dL H mg/dL (70-100) Calcium 9.0 mg/dL mg/dL (8.5-10.4) Total Bilirubin 0.7 mg/dL mg/dL (0.1-1.4) Conjugated Bilirubin 0.4 mg/dL mg/dL (0.0-0.5) Unconjugated Bilirubin 0.3 mg/dL mg/dL (0.0-1.1) AST 27 IU/L IU/L (17-59) ALT 48 IU/L IU/L (21-72) Alkaline Phosphatase 117 IU/L IU/L (38-126) Total Protein 5.7 g/dL L g/dL (6.3-8.2) Albumin 3.6 g/dL g/dL (3.5-5.0) Lipase 14 IU/L L IU/L (23-300) Urine Color YELLOW Urine Appearance HAZY Urine pH 6.0 (5.0-7.5) Ur Specific [place] 1.012 (1.002-1.030) Urine Protein 1+ H (NEGATIVE) Urine Ketones NEGATIVE (NEGATIVE) Urine Blood 1+ H (NEGATIVE) Urine Nitrate NEGATIVE (NEGATIVE) Urine Bilirubin NEGATIVE (NEGATIVE) Urine Urobilinogen NEGATIVE EU EU (0.2-1.0) Ur Leukocyte Esterase 1+ H (NEGATIVE) Urine RBC 1-3 /hpf /hpf (0-3) Urine WBC 15-25 /hpf H /hpf (0-3) Ur Epithelial Cells TRACE /lpf /lpf (NONE-1+) Urine Bacteria 2+ /hpf H /hpf (NONE SEEN) Urine Glucose 3+ H (NEGATIVE) 11/15/17 13:52 WBC 9.29 10^3/uL 10^3/uL (3.80-9.50) RBC 4.48 10^6/uL 10^6/uL (4.40-6.38) Hgb 13.5 g/dL L g/dL (13.7-17.5) Hct 41.9 % % (40.0-51.0) MCV 93.5 fL fL (81.5-99.8) MCH 30.1 pg pg (27.9-34.1) MCHC 32.2 g/dL L g/dL (32.4-36.7) RDW 14.4 % % (11.5-15.2) Plt Count 205 10^3/uL 10^3/uL (150-400) MPV 9.5 fL fL (8.7-11.7) Neut % (Auto) 89.1 % H % (39.3-74.2) Lymph % (Auto) 3.7 % L % (15.0-45.0) [place] % (Auto) 6.1 % % (4.5-13.0) Eos % (Auto) 0.2 % L % (0.6-7.6) Baso % (Auto) 0.1 % L % (0.3-1.7) Nucleat RBC Rel Count 0.0 % % (0.0-0.2) Absolute Neuts (auto) 8.28 10^3/uL H 10^3/uL (1.70-6.50) Absolute Lymphs (auto) 0.34 10^3/uL L 10^3/uL (1.00-3.00) Absolute Monos (auto) 0.57 10^3/uL 10^3/uL (0.30-0.80) Absolute Eos (auto) 0.02 10^3/uL L 10^3/uL (0.03-0.40) Absolute Basos (auto) 0.01 10^3/uL L 10^3/uL (0.02-0.10) Absolute Nucleated RBC 0.00 10^3/uL 10^3/uL (0-0.01) Immature Gran % 0.8 % % (0.0-1.1) Immature Gran # 0.07 10^3/uL 10^3/uL (0.00-0.10) PT INR APTT Sodium Potassium Chloride Carbon Dioxide Anion Gap BUN Creatinine Estimated GFR Glucose Calcium Total Bilirubin Conjugated Bilirubin Unconjugated Bilirubin AST ALT Alkaline Phosphatase Total Protein Albumin Lipase Urine Color Urine Appearance Urine pH Ur Specific [place] Urine Protein Urine Ketones Urine Blood Urine Nitrate Urine Bilirubin Urine Urobilinogen Ur Leukocyte Esterase Urine RBC Urine WBC Ur Epithelial Cells Urine Bacteria Urine Glucose Medications Given: Discontinued Medications Sodium Chloride (Ns) 500 mls @ 0 mls/hr IV EDNOW ONE; Wide Open PRN Reason: Protocol Stop: 11/15/17 14:11 Last Admin: 11/15/17 14:30 Dose: 500 mls Departure - Departure Disposition: Home, Routine, Self-Care Clinical Impression: Diabetes Diabetic foot ulcer Qualifiers: Diabetic foot ulcer location: heel Diabetes mellitus type: type 1 Laterality: right Non-pressure ulcer stage: with other severity Qualified Code(s): E10.621 - Type 1 diabetes mellitus with foot ulcer Condition: Good Instructions: Type 1 Diabetes in Adults (ED) Additional Instructions: You need close follow-up with your primary care physician to adjust her medications for diabetes. You follow up with Dr. Butterfield to recheck your renal function. He also need follow-up with Orthopedics to recheck your shoulder pain. Also, continue to follow up with your corporate travel consultant to treat your foot ulcer. Take your entire course of antibiotics as directed. Referrals: Mega Leroy MD [Primary Care Provider] - 2-3 days without fail Jt Butterfield MD [Medical Doctor] - 2-3 days without fail Gumaro Dill MD [Medical Doctor] - 5-7 days, if not improved
[2017-11-15] MEDS ORDERED: NS 500 ML IV ONE (14:10)
[2017-11-15 14:15] LABS: PLATELET COUNT 205 10^3/uL (150-400)
--- NOTE | 2017-11-15 14:26 | CPEKG ---
Heart Rate: 65 RR Interval: 923 P-R Interval: 152 QRSD Interval: 112 QT Interval: 480 QTC Interval: 500 P [place]: 0 QRS [place]: -87 T Wave [place]: 129 EKG Severity - ABNORMAL ECG - EKG Impression: ATRIAL-VENTRICULAR DUAL-PACED RHYTHM Electronically Signed By: Lubna Stauffer 15-Nov-2017 20:36:15
[2017-11-15 14:33] LABS: INR 1.97 (0.83-1.16); PROTIME(PATIENT) 22.5 SEC (12.0-15.0)
[2017-11-15 16:16] VITALS: PULSE 65
[2017-11-15 16:17] VITALS: BP 172/86; O2SAT 97
== END 2017-11-15 16:57 | disposition home or self-care (01) ==
DX: E10.621 Type 1 diabetes mellitus with foot ulcer (principal); L97.519 Non-pressure chronic ulcer of other part of right foot with unspecified severity; I10 Essential (primary) hypertension; Z79.01 Long term (current) use of anticoagulants; Z79.82 Long term (current) use of aspirin; Z86.73 Personal history of transient ischemic attack (TIA), and cerebral infarction without residual deficits

== ENCOUNTER 2017-12-01 17:12 | Inpatient (IN) | payer OTHER ==
--- NOTE | 2017-12-01 17:24 | CPEKG ---
Heart Rate: 68 RR Interval: 882 P-R Interval: 184 QRSD Interval: 154 QT Interval: 480 QTC Interval: 511 P [place]: 0 QRS [place]: -88 T Wave [place]: 87 EKG Severity - ABNORMAL ECG - EKG Impression: A-V DUAL-PACED RHYTHM WITH SOME INHIBITION Electronically Signed By: Avinash Beaver 01-Dec-2017 17:35:02
[2017-12-01] MEDS ORDERED: NS 1,000 ML IV ONE (17:29)
--- NOTE | 2017-12-01 17:33 | EDPHY ---
H & P Stated Complaint: weakness Time Seen by Provider: 12/01/17 17:19 HPI/ROS: CHIEF COMPLAINT: Generalized weakness HISTORY OF PRESENT ILLNESS: Patient is a 72-year-old man whose brings him to the emergency department complaining of generalized weakness that began this morning. Patient has a history of as diabetes with renal failure and renal transplant on immunosuppressants as well as coronary artery disease with 5 vessel CABG. He typically uses a wheelchair but transfers on his own. Today his states that he has seems extremely weak and unable to transfer and also slightly confused. The patient complained of shortness of breath at 1 point and she checked his oxygen level and stated it was 85%. She placed his oxygen on him which she typically wears at night and brought him to the ER. Here in the department he has no complaints and states that he feels completely normal. He denies chest pain. He denies shortness of breath. He has had a mild dry cough which is states is not unusual. REVIEW OF SYSTEMS: Constitutional: denies: chills, fever, recent illness, recent injury EENTM: denies: blurred vision, double vision, nose congestion Respiratory:See HPI see Cardiac: denies: chest pain, irregular heart rate, lightheadedness, palpitations Gastrointestinal/Abdominal: denies: abdominal pain, diarrhea, nausea, vomiting, blood streaked stools Genitourinary: denies: dysuria, frequency, hematuria, pain Musculoskeletal: denies: joint pain, muscle pain Skin: denies: lesions, rash, jaundice, bruising Neurological: denies: headache, numbness, paresthesia, tingling, dizziness, weakness Hematologic/Lymphatic: denies: blood clots, easy bleeding, easy bruising Immunologic/allergic: denies: HIV/AIDS, transplant EXAM: GENERAL: Thin, dry HEAD: Atraumatic, normocephalic. EYES: Pupils equal round and reactive to light, extraocular movements intact, sclera anicteric, conjunctiva are normal. ENT: TMs normal, nares patent, oropharynx clear without exudates. Slightly dry mucous membranes. NECK: Normal range of motion, supple without lymphadenopathy or JVD. LUNGS: Breath sounds clear to auscultation bilaterally and equal. No wheezes rales or rhonchi. HEART: Regular rate and rhythm without murmurs, rubs or gallops. ABDOMEN: Soft, nontender, normoactive bowel sounds. No guarding, no rebound. No masses appreciated. BACK: No CVA tenderness, no spinal tenderness, step-offs or deformities EXTREMITIES: Normal range of motion, no pitting or edema. No clubbing or cyanosis. He does have a wound to his left heel that has been dressed by podiatry today. I did unwrap it. Eschar present with minimal erythema. NEUROLOGICAL: Cranial nerves II through XII grossly intact. Normal speech, normal gait. 5/5 strength, normal movement in all extremities, normal sensation PSYCH: Normal mood, normal affect. SKIN: Warm, dry, normal turgor, no visible rashes or lesions. Source: Patient Exam Limitations: No limitations - Personal History Current Tetanus Diphtheria and Acellular Pertussis (TDAP): Yes Tetanus Vaccine Date: 2011 - Medical/Surgical History Hx Asthma: No Hx Chronic Respiratory Disease: No Hx Diabetes: Yes Hx Cardiac Disease: Yes Hx Renal Disease: Yes Hx Cirrhosis: No Hx Alcoholism: No Hx HIV/AIDS: No Hx Splenectomy or Spleen Trauma: No Other PMH: hypothyroid, pacemaker 2012, cardioversion, HTN, kidney transplant, Afib, aflutter, diabetes. uti, chronic hypoxemia, dementia. CVA-2010. CABGx5 - Family History Significant Family History: No pertinent family hx - Social History Smoking Status: Never smoked Alcohol Use: Sober Drug Use: None Constitutional: Initial Vital Signs Temperature (C) 36.6 C 12/01/17 17:21 Heart Rate 65 12/01/17 17:21 Respiratory Rate 16 12/01/17 17:21 Blood Pressure 157/96 H 12/01/17 17:21 O2 Sat (%) 93 12/01/17 17:21 O2 Delivery Mode Room Air Allergies/Adverse Reactions: No Known Allergies Allergy (Verified 12/01/17 17:21) Home Medications: Medication Instructions Recorded Amiodarone HCl [Pacerone (*)] 200 mg PO HS 12/01/17 Aspirin EC [Aspirin EC 81 mg (*)] 81 mg PO DAILY 12/01/17 Atorvastatin Calcium [Lipitor 20 20 mg PO HS 12/01/17 mg (*)] Furosemide [Lasix 20 MG (*)] 10 mg PO DAILY 12/01/17 Levothyroxine [Synthroid 50 mcg 50 mcg PO DAILY06 12/01/17 (*)] Metoprolol Tartrate [Lopressor 25 25 mg PO BID 12/01/17 mg (*)] Mycophenolate Mofetil 750 mg PO BID 12/01/17 [MYCOPHENOLATE MOFETIL] Quinapril HCl [Accupril 5 mg] 5 mg PO HS 12/01/17 Tacrolimus Anhydrous [Prograf 0.5 1.5 mg PO Q12 12/01/17 MG (*)] Timolol 0.5% [TIMOPTIC 0.5% (*)] 1 drops LEFTEYE BID 12/01/17 Warfarin Sodium [Coumadin 5MG (*)] 2.5 mg PO MOTUTHFRSA@16 12/01/17 predniSONE 5 mg PO DAILY 12/01/17 Medical Decision Making - Diagnostics EKG Interpretation: An EKG obtained and was read and documented in trace view. Please see trace view for full reading and report. Dual paced rhythm Imaging: Discussed imaging studies w/ physically impaired teacher Radiologist ED Course/Re-evaluation: The patient is dehydrated and hyperglycemic. He remains weak. I discussed the case with Dr. Marti who will admit. He recommends blood cultures as well. Differential Diagnosis: Partial list of the Differential diagnosis considered include but were not limited to; who dehydration, hyperglycemia, pneumonia, urinary tract infection and although unlikely based on the history and physical exam, I also considered sepsis, meningitis. - Data Points Laboratory Results: Laboratory Results 12/01/17 17:25 12/01/17 17:25 Medications Given: Amiodarone HCl (Amiodarone Hcl) 200 mg PO HS RADHA Stop: 05/30/18 20:59 Last Admin: 12/01/17 23:26 Dose: 200 mg Aspirin Buffered (Aspirin Ec) 81 mg PO DAILY RADHA Stop: 05/31/18 08:59 Last Admin: 12/02/17 08:08 Dose: 81 mg Atorvastatin Calcium (Lipitor) 20 mg PO HS RADHA Stop: 05/30/18 20:59 Last Admin: 12/01/17 23:25 Dose: 20 mg Sodium Chloride (Ns) 1,000 mls @ 100 mls/hr IV CONT RADHA Stop: 05/30/18 20:44 Last Admin: 12/02/17 11:50 Dose: 1,000 mls Insulin Glargine (Lantus Syringe) 25 units SC BID RADHA Stop: 05/30/18 20:59 Last Admin: 12/02/17 08:09 Dose: 25 units Insulin Human Lispro (Humalog Lispro) 0 unit SC TIDMEAL RADHA PRN Reason: Protocol Stop: 05/31/18 07:59 Last Admin: 12/02/17 11:49 Dose: 4 units Levothyroxine Sodium (Synthroid) 50 mcg PO DAILY06 RADHA Stop: 05/31/18 05:59 Last Admin: 12/02/17 06:07 Dose: 50 mcg Lisinopril (Zestril) 5 mg PO HS RADHA Stop: 05/30/18 20:59 Last Admin: 12/01/17 23:26 Dose: 5 mg Metoprolol Tartrate (Lopressor) 25 mg PO BID RADHA Stop: 05/30/18 20:59 Last Admin: 12/02/17 08:08 Dose: 25 mg Mycophenolate Mofetil (Cellcept) 750 mg PO BID RADHA Stop: 05/30/18 20:59 Last Admin: 12/02/17 08:09 Dose: 750 mg Prednisone (Prednisone) 5 mg PO DAILY RADHA Stop: 05/31/18 08:59 Last Admin: 12/02/17 08:08 Dose: 5 mg Tacrolimus (Prograf) 1.5 mg PO Q12 RADHA Stop: 05/30/18 20:59 Last Admin: 12/02/17 08:09 Dose: 1.5 mg Timolol Maleate (Timoptic 0.5%) 1 drops LEFTEYE BID RADHA Stop: 05/30/18 20:59 Last Admin: 12/02/17 08:10 Dose: 1 drop Discontinued Medications Sodium Chloride (Ns) 1,000 mls @ 0 mls/hr IV EDNOW ONE; Wide Open PRN Reason: Protocol Stop: 12/01/17 17:30 Last Admin: 12/01/17 18:00 Dose: 1,000 mls Insulin Glargine (Lantus Syringe) 15 units SC BID RADHA Stop: 05/30/18 20:59 Last Admin: 12/01/17 23:24 Dose: 15 units Insulin Human Lispro (Humalog Lispro) 10 unit SC ONCE ONE Stop: 12/02/17 05:44 Last Admin: 12/02/17 06:07 Dose: 10 units Insulin Human Regular (Humulin R) 10 unit IVP EDNOW ONE Stop: 12/01/17 18:25 Last Admin: 12/01/17 19:29 Dose: 10 units Departure - Departure Disposition: [facility] Clinical Impression: Dehydration, Hyperglycemia, Generalized weakness Condition: Fair
[2017-12-01 17:59] LABS: INR 1.68 (0.83-1.16); PLATELET COUNT 200 10^3/uL (150-400); PROTIME(PATIENT) 19.9 SEC (12.0-15.0)
[2017-12-01] MEDS ORDERED: INSULIN REGULAR HUMAN 100 UNIT/ML UNIT IVP ONE (18:24)
[2017-12-01] MEDS ORDERED: D50W 25 GM/50 ML SYR IVP PRN (20:41)
[2017-12-01] MEDS ORDERED: ONDANSETRON 4 MG/2 ML VIAL IVP PRN (20:52)
[2017-12-01] MEDS ORDERED: ONDANSETRON DISINTEGRATING 4 MG TAB PO PRN (20:52)
[2017-12-01] MEDS ORDERED: ACETAMINOPHEN 325 MG TAB PO PRN (20:52)
[2017-12-01] MEDS ORDERED: INSULIN GLARGINE 100 UNITS/ML UNIT SC SCH (21:00)
--- NOTE | 2017-12-01 21:55 | GHP ---
[f rep st] HISTORY AND PHYSICAL DATE OF ADMISSION: 12/01/2017 CHIEF COMPLAINT: Weakness. HISTORY OF PRESENT ILLNESS: This is a 72-year-old man with dementia and multiple medical problems, w jc is accompanied by his . Most of the history is obtained through her given his underlying ment al issues. Apparently he went to see one of his physicians today, had difficulty getting back into t he car his legs were so weak. Typically he is in a wheelchair however, he is able to manage his own transfers. He was not able to do that today. He has a history of multiple recurrent urinary tract i nfections with resistant bacteria; however, typically he has encephalopathy with that as well as occa sionally some dysuria. He will also sometimes have frequency. His says that he is a little bit confused today however, he is not having any of those other symptoms. He had some shortness of jana th with a chronic cough today. His noted that his oxygen sats were 85% at home however there we re normal here. To me, he is denying any shortness of breath. He has a history of coronary artery d isease, but he is denying chest pain. His sugars are quite elevated, he received a cortisone shot in his shoulder about 2 weeks ago, his thinks that he missed a bolus from his pump today. He has a history of a renal transplant and he is on immunosuppressants. PAST MEDICAL/SURGICAL HISTORY: 1. Coronary artery disease, status post CABG. 2. Diabetes mellitus type 2 with an insulin pump. 3. History of a renal transplant on immunosuppressants. 4. Atrial fibrillation on amiodarone, metoprolol and warfarin. 5. History of CHF. 6. History of a CVA. 7. Hypertension. 8. Multiple urinary tract infections with pseudomonal colonization. 9. Hypothyroid. 10. Dementia. MEDICATIONS: Please see medication reconciliation. ALLERGIES: No known drug allergies. SOCIAL HISTORY: He is accompanied by his . FAMILY HISTORY: Reviewed and noncontributory. REVIEW OF SYSTEMS: A 10-point review of systems is conducted. It is positive for nausea a few days ago otherwise, negative except per HPI. PHYSICAL EXAM: VITAL SIGNS: Blood pressure 157/101, heart rate 69, respiration rate 21, saturating 94% on room air. Temperature 36.6. GENERAL: The patient is a pleasant man who is somewhat confused , lying in bed. HEENT: Shows him to be normocephalic, atraumatic. CARDIOVASCULAR: Regular rate an d rhythm. There are no murmurs, rubs, or gallops. PULMONARY: Lungs clear to auscultation bilateral ly. ABDOMEN: Soft, nontender, nondistended. SKIN: Shows multiple skin tears and excoriations. NE UROLOGIC: Shows him to be somewhat confused. He has a nonfocal neurologic exam. PSYCHIATRIC: Show s normal mood and affect. LABS: Hemoglobin 13.5, INR is 1.68, sodium is 138, potassium is 5.3, creatinine is 1.7. Troponin 0. 049. Urinalysis is pending. Influenza is pending. DATA: 1. Chest x-ray, which I personally reviewed and interpreted, shows nothing acute. He has cardiomega ly. He has a pacemaker in place. He has sternotomy wires. 2. ECG, which I personally viewed and interpreted, shows he has a paced rhythm. IMPRESSION AND PLAN: 1. Weakness: Unclear if this is primary, neurologic, infectious, cardiac, medications or other. Ur inalysis pending. We will not empirically start antibiotics. He has multiple resistant organisms. Trend troponins. I noted slightly elevated troponin which may be due to his renal failure. Many of his troponins here have been indeterminate like this. Will have physical therapy and occupational th erapy work with him. We will address other problems as detailed below and follow his functional stat us. 2. Elevated troponin: We will trend these. EKG is really unchanged from his prior. He is atrioven tricular paced. He did have some shortness of breath. At this point, I think cardiovascular issues are possible though less likely. He does have a significant history. 3. Hyperglycemia: May have led to dehydration causing some weakness. Will have him stop using his insulin pump, start Lantus. His is unsure exactly how many units he tends to get in a 24 hour p eriod, however it seems as though it is about 70. I have started on Lantus 15 twice daily with slidi ng scale. May need to be increased. 4. History of a renal transplant: Will continue his tacrolimus, mycophenolate and prednisone. Bang ey function is at baseline. If there are any concerns, would consult Nephrology. 5. Hyperkalemia: We will follow this with IV hydration. I placed him on a renal diet tonight. 6. Atrial fibrillation: He is slightly subtherapeutic on his warfarin. We will continue this. We will continue his amiodarone and warfarin. 7. History of cerebrovascular accident: He is on aspirin and statin. 8. Hypertension: Continue his quinapril. 9. Hypothyroid: Synthroid. CODE STATUS: Per his , he is a do not resuscitate. I have placed this on the chart. VENOUS THROMBOEMBOLISM RISK: Low as he is on warfarin. /[id number]/MODL
[2017-12-01] MEDS: ATORVASTATIN CALCIUM 20 MG TAB PO SCH (23:25)
[2017-12-01] MEDS: TIMOLOL 0.5% 15 ML OPHT.BTL LEFTEYE SCH (23:25)
[2017-12-01] MEDS: METOPROLOL TARTRATE 25 MG TAB PO SCH (23:25)
[2017-12-01] MEDS: LISINOPRIL 5 MG TAB PO SCH (23:26)
[2017-12-01] MEDS: MYCOPHENOLATE MOFETIL 250 MG CAP PO SCH (23:26)
[2017-12-01] MEDS: AMIODARONE HCL 200 MG TAB PO SCH (23:26)
[2017-12-01] MEDS: TACROLIMUS ANHYDROUS 0.5 MG CAP PO SCH (23:27)
[2017-12-02] MEDS: NS 1,000 ML IV SCH ×2 (01:41→11:50)
[2017-12-02 04:39] LABS: PLATELET COUNT 157 10^3/uL (150-400)
[2017-12-02 04:49] LABS: INR 1.86 (0.83-1.16); PROTIME(PATIENT) 21.5 SEC (12.0-15.0)
[2017-12-02] MEDS ORDERED: INSULIN LISPRO 100 UNIT/ML SC ONE (05:43)
[2017-12-02] MEDS: LEVOTHYROXINE 50 MCG TAB PO SCH (06:07)
[2017-12-02] MEDS: predniSONE 5 MG TAB PO SCH (08:08)
[2017-12-02] MEDS: ASPIRIN EC 81 MG TAB PO SCH (08:08)
[2017-12-02] MEDS: METOPROLOL TARTRATE 25 MG TAB PO SCH ×2 (08:08→17:37)
[2017-12-02] MEDS: MYCOPHENOLATE MOFETIL 250 MG CAP PO SCH ×2 (08:09→22:31)
[2017-12-02] MEDS: INSULIN GLARGINE 100 UNITS/ML UNIT SC SCH ×2 (08:09→22:29)
[2017-12-02] MEDS: TACROLIMUS ANHYDROUS 0.5 MG CAP PO SCH ×2 (08:09→22:31)
[2017-12-02] MEDS: TIMOLOL 0.5% 15 ML OPHT.BTL LEFTEYE SCH ×2 (08:10→22:31)
[2017-12-02] MEDS: INSULIN LISPRO 100 UNIT/ML SC SCH ×3 (08:15→17:56)
--- NOTE | 2017-12-02 09:27 | PDMN ---
Medical Necessity Medical necessity: M130 diabetes A-1 day vs. [facility] Neurology, Hyperglycemia- glucose 478 with AMS, weakness, dehydration, electrolyte abnormalities, NA( 130 ) ,K 5.3, BUN 34, Cr 1.7, slightly elevated trop. in pt with sig cardiac hx., hx renal transplant, hx CVA, HTN, hypothyroid. further monitoring and eval needed, PT, OT
--- NOTE | 2017-12-02 14:51 | WOCRNPDOC ---
WOCRN Advanced Assessment Note - Skin Integrity Problem, Advanced Assess Right Second Toe Dressing Type: Open to Air Wound Bed Constitution: Stable Eschar Skin Integrity Problem Comment: Neuropathic changes in foot including charcot foot and hx of ulcers. 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 Remaining tip of 2nd toe necrotic with stable long standing eschar. No erythema nor concerns. Continue with treatment plan of painting with betadine BID. Wound care will not follow.
[2017-12-02] MEDS ORDERED: WARFARIN SODIUM 2.5 MG TAB PO ONE (16:00)
--- NOTE | 2017-12-02 16:14 | ASMTCMCOM ---
CM Note CM Note Notes: Pt admitted w/weakness, dehydration, and hyperglycemia. He has hx of dementia, lives at home w/, Jeanna. PT recommending HHC vs SNF, OT recommending SNF. Met w/pt and to discuss. Jeanna stated that pt needs to be able to transfer from independantly to come home. At this time, pt is not able to do this so we discussed SNF. If SNF, they would like to go to [facility] as he has been here in past and was very pleased w/care. Referral sent and notified Rangel at [facility]. If pt improves and is well enough to go home he will go w/[facility] for RN/PT/OT (he was current w/[facility] prior to admission to hosp). requesting PT, Melly, if home w/HHC. Current dc plan: to [facility] if accepted or home w/[facility] if pt improves enough. Date Signed: 12/02/2017 04:13 PM Electronically Signed By:Tanya Umana RN
--- NOTE | 2017-12-02 17:34 | HOSPPROG ---
Hospitalist Progress Note Assessment/Plan: * DM 1 - uncontrolled -he can no longer manage insulin pump due to dementia -change to SQ insulin * Weakness due to dehydration/hyperglycemia -PT/OT * CAD/CABG -borderline trops - doubt ischemia * Renal transplant - chronic immunosuppression -at baseline creatinine 1.7 * Afib/PCM -amiodarone, metoprolol -chronic warfarin * CVA -ASA, statin Subjective: No complaints. Wants to go home Objective: Vital Signs Temp Pulse Resp BP Pulse Ox 36.5 C 65 18 170/87 H 94 12/02/17 16:27 12/02/17 17:16 12/02/17 16:27 12/02/17 17:16 12/02/17 16:27 Microbiology 12/01/17 20:07 Respiratory Panel (PCR) - Final Nasal, Sinus - Swab No Organism Detected Laboratory Results 12/02/17 03:20 12/02/17 03:20 12/01/17 12/02/17 12/03/17 05:59 05:59 05:59 Intake Total 1300 Output Total 1000 1050 Balance 300 -1050 PT 21.5 SEC (12.0-15.0) H 12/02/17 03:20 INR 1.86 (0.83-1.16) H 12/02/17 03:20 EKG viewed, my personal interpretation is - paced rhythm CXR - negative - Physical Exam Constitutional: no apparent distress, appears nourished, not in pain Cardiovascular: regular rate and rhythym, no murmur, rub, or gallop Respiratory: no respiratory distress, no rales or rhonchi, clear to auscultation Gastrointestinal: normoactive bowel sounds, soft, non-tender abdomen, no palpable masses Skin: no rashes or abrasions, no fluctuance, no induration Psychiatric: interacting appropriately, not anxious, not encephalopathic, thought process linear ICD10 Worksheet Patient Problems: Problems Problem Status Onset Dehydration Acute Generalized weakness Acute Hyperglycemia Acute Afib - Atrial fibrillation Active CAD - Coronary arteriosclerosis Active Chronic kidney disease stage 5 Active History of - hypertension Active Tachycardia-bradycardia Active Chest pain Acute Chronic renal insufficiency Acute Dementia Acute Diabetes mellitus type 1 Acute ESBL (extended spectrum beta-lactamase) producing bacteria infection Acute ~08/04 Elevated troponin Acute Hypoxia Acute 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
[2017-12-02] MEDS: AMIODARONE HCL 200 MG TAB PO SCH (22:29)
[2017-12-02] MEDS: LISINOPRIL 5 MG TAB PO SCH (22:30)
[2017-12-02] MEDS: ATORVASTATIN CALCIUM 20 MG TAB PO SCH (22:30)
[2017-12-03] MEDS: LEVOTHYROXINE 50 MCG TAB PO SCH (05:13)
[2017-12-03 05:37] LABS: PLATELET COUNT 160 10^3/uL (150-400)
[2017-12-03 05:56] LABS: INR 2.23 (0.83-1.16); PROTIME(PATIENT) 24.7 SEC (12.0-15.0)
[2017-12-03] MEDS: INSULIN GLARGINE 100 UNITS/ML UNIT SC SCH ×2 (08:55→20:19)
[2017-12-03] MEDS: TACROLIMUS ANHYDROUS 0.5 MG CAP PO SCH ×2 (08:56→20:19)
[2017-12-03] MEDS: TIMOLOL 0.5% 15 ML OPHT.BTL LEFTEYE SCH ×2 (08:56→20:18)
[2017-12-03] MEDS: METOPROLOL TARTRATE 25 MG TAB PO SCH ×2 (08:56→20:20)
[2017-12-03] MEDS: MYCOPHENOLATE MOFETIL 250 MG CAP PO SCH ×2 (08:56→20:19)
[2017-12-03] MEDS: predniSONE 5 MG TAB PO SCH (08:57)
[2017-12-03] MEDS: INSULIN LISPRO 100 UNIT/ML SC SCH ×3 (09:09→18:29)
[2017-12-03] MEDS: ASPIRIN EC 81 MG TAB PO SCH (09:12)
--- NOTE | 2017-12-03 12:03 | HOSPPROG ---
Hospitalist Progress Note Assessment/Plan: 72y male with c/o weakness. First encounter, chart reviewed. D/W CM. * DM 1 - uncontrolled -he can no longer manage insulin pump due to dementia -change to SQ insulin * Weakness due to dehydration/hyperglycemia -PT/OT * CAD/CABG -borderline trops - doubt ischemia * Renal transplant - chronic immunosuppression -at baseline creatinine 1.7 * Afib/PCM -amiodarone, metoprolol -chronic warfarin * CVA -ASA, statin *Dispo -SNF rec -D/W CM working on [facility] -possible DC in am Subjective: Feeling well. Wants to go home. Objective: Vital Signs Temp Pulse Resp BP Pulse Ox 36.3 C 65 15 151/86 H 96 12/03/17 11:06 12/03/17 11:06 12/03/17 11:06 12/03/17 11:06 12/03/17 11:06 Microbiology 12/01/17 20:07 Respiratory Panel (PCR) - Final Nasal, Sinus - Swab No Organism Detected Laboratory Results 12/03/17 04:54 12/03/17 04:54 12/02/17 12/03/17 12/04/17 05:59 05:59 05:59 Intake Total 1300 Output Total 1000 1625 100 Balance 300 -1625 -100 PT 24.7 SEC (12.0-15.0) H 12/03/17 04:54 INR 2.23 (0.83-1.16) H 12/03/17 04:54 - Physical Exam Constitutional: no apparent distress, appears nourished, not in pain Eyes: PERRL, anicteric sclera, EOMI Ears, Nose, Mouth, Throat: moist mucous membranes, hearing normal, ears appear normal Cardiovascular: No JVD, No tachycardia, No edema Respiratory: no respiratory distress, no rales or rhonchi, reduced air movement Gastrointestinal: normoactive bowel sounds, No tenderness, No ascites Skin: warm, normal color, No erythema Musculoskeletal: no joint effusions, muscular tenderness, generalized weakness Psychiatric: interacting appropriately, not encephalopathic, poor insight, poor judgement, poor memory ICD10 Worksheet Patient Problems: Problems Problem Status Onset Dehydration Acute Generalized weakness Acute 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
[2017-12-03] MEDS ORDERED: WARFARIN SODIUM 2.5 MG TAB PO SCH (16:00)
[2017-12-03] MEDS: ATORVASTATIN CALCIUM 20 MG TAB PO SCH (20:20)
[2017-12-03] MEDS: LISINOPRIL 5 MG TAB PO SCH (20:20)
[2017-12-03] MEDS: AMIODARONE HCL 200 MG TAB PO SCH (20:20)
[2017-12-04 05:17] LABS: INR 2.64 (0.83-1.16); PROTIME(PATIENT) 28.1 SEC (12.0-15.0)
[2017-12-04] MEDS: LEVOTHYROXINE 50 MCG TAB PO SCH (05:32)
[2017-12-04] MEDS: TIMOLOL 0.5% 15 ML OPHT.BTL LEFTEYE SCH ×2 (09:15→21:06)
[2017-12-04] MEDS: ASPIRIN EC 81 MG TAB PO SCH (09:46)
[2017-12-04] MEDS: METOPROLOL TARTRATE 25 MG TAB PO SCH ×2 (09:46→21:02)
[2017-12-04] MEDS: TACROLIMUS ANHYDROUS 0.5 MG CAP PO SCH ×2 (09:46→21:02)
[2017-12-04] MEDS: predniSONE 5 MG TAB PO SCH (09:46)
[2017-12-04] MEDS: MYCOPHENOLATE MOFETIL 250 MG CAP PO SCH ×2 (09:46→21:02)
[2017-12-04] MEDS: INSULIN GLARGINE 100 UNITS/ML UNIT SC SCH ×2 (09:47→21:06)
[2017-12-04] MEDS: INSULIN LISPRO 100 UNIT/ML SC SCH ×3 (11:50→18:33)
--- NOTE | 2017-12-04 12:16 | HOSPPROG ---
Hospitalist Progress Note Assessment/Plan: 72y male with c/o weakness. First encounter, chart reviewed. D/W CM. * DM 1 - uncontrolled -he can no longer manage insulin pump due to dementia -change to SQ insulin * Weakness due to dehydration/hyperglycemia -PT/OT -per is , he couldn't walk and get out of the car * CAD/CABG -borderline trops /no chest pain,no shortness of breath * Renal transplant - chronic immunosuppression -at baseline creatinine 1.4 * Afib/PCM -amiodarone, metoprolol -chronic warfarin, INR is therapeutic @ 2.64 * CVA -ASA, statin *hypothyroid -Synthroid *hyperkalemia -resolved *urinary retention -chronic, needing frequent straight catheterizations -Ram in for now - to make an appt with Dr Valentine for f/u care *Dispo -SNF rec -D/W CM working on [facility] *Plan: follow labs in a.m. Subjective: José Manuel has no complaints. Objective: Vital Signs Temp Pulse Resp BP Pulse Ox 36.4 C 65 16 163/87 H 100 12/04/17 11:46 12/04/17 11:46 12/04/17 11:46 12/04/17 11:46 12/04/17 11:46 Laboratory Results 12/03/17 04:54 12/03/17 04:54 12/03/17 12/04/17 12/05/17 05:59 05:59 05:59 Intake Total 200 Output Total 1625 900 500 Balance -1625 -700 -500 PT 28.1 SEC (12.0-15.0) H 12/04/17 04:44 INR 2.64 (0.83-1.16) H 12/04/17 04:44 - Physical Exam Constitutional: not in pain, chronically ill appearing Eyes: PERRL Ears, Nose, Mouth, Throat: hearing normal Cardiovascular: regular rate and rhythym Respiratory: no respiratory distress Gastrointestinal: normoactive bowel sounds Skin: warm Musculoskeletal: generalized weakness Neurologic: AAOx3, other (knows where he is, why is he here, knows who president is, but doesn't know year) Psychiatric: interacting appropriately, poor memory ICD10 Worksheet Patient Problems: Problems Problem Status Onset Dehydration Acute Generalized weakness Acute Hyperglycemia Acute Afib - Atrial fibrillation Active CAD - Coronary arteriosclerosis Active Chronic kidney disease stage 5 Active History of - hypertension Active Tachycardia-bradycardia Active Chest pain Acute Chronic renal insufficiency Acute Dementia Acute Diabetes mellitus type 1 Acute ESBL (extended spectrum beta-lactamase) producing bacteria infection Acute ~08/04 Elevated troponin Acute Hypoxia Acute 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
--- NOTE | 2017-12-04 16:21 | ASMTCMCOM ---
CM Note CM Note Notes: Spoke w/Nadia from [facility], Insurance auth still has not come through. If auth doesn't come tonight, will not get it until Thursday. CM notified pt and . DC Plan: [facility] SNF Date Signed: 12/04/2017 04:21 PM Electronically Signed By:Jo-Ann Mckeon RN
[2017-12-04] MEDS: ATORVASTATIN CALCIUM 20 MG TAB PO SCH (21:02)
[2017-12-04] MEDS: AMIODARONE HCL 200 MG TAB PO SCH (21:02)
[2017-12-04] MEDS: LISINOPRIL 5 MG TAB PO SCH (21:02)
[2017-12-05] MEDS ORDERED: hydrALAZINE 20 MG/ML VIAL IVP PRN (00:28)
[2017-12-05] MEDS ORDERED: D50W 25 GM/50 ML VIAL IVP PRN (00:30)
[2017-12-05 04:57] LABS: INR 2.92 (0.83-1.16); PROTIME(PATIENT) 30.4 SEC (12.0-15.0)
[2017-12-05] MEDS: LEVOTHYROXINE 50 MCG TAB PO SCH (05:35)
[2017-12-05] MEDS: INSULIN GLARGINE 100 UNITS/ML UNIT SC SCH (08:41)
[2017-12-05] MEDS: INSULIN LISPRO 100 UNIT/ML SC SCH ×3 (08:41→18:39)
[2017-12-05] MEDS: MYCOPHENOLATE MOFETIL 250 MG CAP PO SCH ×2 (09:33→20:43)
[2017-12-05] MEDS: METOPROLOL TARTRATE 25 MG TAB PO SCH ×2 (09:34→20:42)
[2017-12-05] MEDS: TACROLIMUS ANHYDROUS 0.5 MG CAP PO SCH ×2 (09:34→20:43)
[2017-12-05] MEDS: predniSONE 5 MG TAB PO SCH (09:35)
[2017-12-05] MEDS: ASPIRIN EC 81 MG TAB PO SCH (09:35)
[2017-12-05] MEDS: TIMOLOL 0.5% 15 ML OPHT.BTL LEFTEYE SCH ×2 (09:36→20:43)
--- NOTE | 2017-12-05 10:14 | HOSPPROG ---
Hospitalist Progress Note Assessment/Plan: 72y male with c/o weakness. First encounter, chart reviewed. D/W CM. * DM 1 - uncontrolled -he can no longer manage insulin pump due to dementia -change to SQ insulin -significant hypoglycemia, gluces 40, then 59 -decreased Lantus to daily and decreased dose to 10 units sq daily * Weakness due to dehydration/hyperglycemia -PT/OT -per is , he couldn't walk and get out of the car * CAD/CABG -borderline trops /no chest pain,no shortness of breath * Renal transplant - chronic immunosuppression -at baseline creatinine 1.4 * Afib/PCM -amiodarone, metoprolol -chronic warfarin, INR is therapeutic @ 2.64 * CVA -ASA, statin *hypothyroid -Synthroid *hyperkalemia -resolved *urinary retention -chronic, needing frequent straight catheterizations -Quach in for now - to make an appt with Dr Valentine for f/u care *Dispo -SNF rec -D/W CM working on [facility] *Plan: continue current care, decrease lantus to low dose daily, cont sliding scale Subjective: José Manuel has no complaints, feeling well. Objective: Vital Signs Temp Pulse Resp BP Pulse Ox 36.6 C 69 16 126/58 H 97 12/05/17 07:37 12/05/17 07:37 12/05/17 07:37 12/05/17 07:37 12/05/17 07:37 Laboratory Results 12/03/17 04:54 12/03/17 04:54 12/04/17 12/05/17 12/06/17 05:59 05:59 05:59 Intake Total 200 1000 Output Total 834 439 7489 Balance -700 500 -1500 PT 30.4 SEC (12.0-15.0) H 12/05/17 04:40 INR 2.92 (0.83-1.16) H 12/05/17 04:40 - Physical Exam Constitutional: appears nourished, not in pain, chronically ill appearing Eyes: PERRL Ears, Nose, Mouth, Throat: hearing normal Cardiovascular: regular rate and rhythym Respiratory: no respiratory distress Gastrointestinal: normoactive bowel sounds Genitourinary: quach in urethra Skin: warm Musculoskeletal: generalized weakness Neurologic: AAOx3 Psychiatric: poor memory ICD10 Worksheet Patient Problems: Problems Problem Status Onset Dehydration Acute Generalized weakness Acute Hyperglycemia Acute Afib - Atrial fibrillation Active CAD - Coronary arteriosclerosis Active Chronic kidney disease stage 5 Active History of - hypertension Active Tachycardia-bradycardia Active Chest pain Acute Chronic renal insufficiency Acute Dementia Acute Diabetes mellitus type 1 Acute ESBL (extended spectrum beta-lactamase) producing bacteria infection Acute ~08/04 Elevated troponin Acute Hypoxia Acute 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
[2017-12-05] MEDS: ATORVASTATIN CALCIUM 20 MG TAB PO SCH (20:43)
[2017-12-05] MEDS: LISINOPRIL 5 MG TAB PO SCH (20:43)
[2017-12-05] MEDS: AMIODARONE HCL 200 MG TAB PO SCH (20:43)
[2017-12-06 05:15] LABS: PLATELET COUNT 158 10^3/uL (150-400)
[2017-12-06 05:22] LABS: INR 2.25 (0.83-1.16); PROTIME(PATIENT) 24.9 SEC (12.0-15.0)
[2017-12-06] MEDS: LEVOTHYROXINE 50 MCG TAB PO SCH (05:24)
[2017-12-06] MEDS ORDERED: INSULIN GLARGINE 100 UNITS/ML UNIT SC SCH (09:00)
[2017-12-06] MEDS: ASPIRIN EC 81 MG TAB PO SCH (09:58)
[2017-12-06] MEDS: INSULIN LISPRO 100 UNIT/ML SC SCH ×3 (09:58→18:04)
[2017-12-06] MEDS: predniSONE 5 MG TAB PO SCH (09:59)
[2017-12-06] MEDS: METOPROLOL TARTRATE 25 MG TAB PO SCH ×2 (10:00→20:58)
[2017-12-06] MEDS: MYCOPHENOLATE MOFETIL 250 MG CAP PO SCH ×2 (10:01→20:58)
[2017-12-06] MEDS: TACROLIMUS ANHYDROUS 0.5 MG CAP PO SCH ×2 (10:01→20:57)
[2017-12-06] MEDS: TIMOLOL 0.5% 15 ML OPHT.BTL LEFTEYE SCH ×2 (10:02→21:46)
--- NOTE | 2017-12-06 11:52 | HOSPPROG ---
Hospitalist Progress Note Assessment/Plan: 72y male with c/o weakness. First encounter, chart reviewed. D/W CM. * DM 1 - uncontrolled -he can no longer manage insulin pump due to dementia -change to SQ insulin -significant hypoglycemia w hyperglycemia/ better this morning -decreased Lantus to daily and decreased dose to 10 units sq daily * Weakness due to dehydration/hyperglycemia -PT/OT -per is , he couldn't walk and get out of the car -reviewed his care w Therapy/ he needs rehab, his legs easily buckle * CAD/CABG -borderline trops /no chest pain,no shortness of breath * Renal transplant - chronic immunosuppression -at baseline creatinine 1.5 * Afib/PCM -amiodarone, metoprolol -chronic warfarin, INR is therapeutic @ 2.25 * CVA -ASA, statin *hypothyroid -Synthroid *hyperkalemia -resolved *urinary retention -chronic, needing frequent straight catheterizations -Quach in for now - to make an appt with Dr Valentine for f/u care *Dispo -SNF rec -D/W CM working on [facility] *Plan: continue current care Subjective: José Manuel is upset about going to rehab/ he believes he is strong enough to go home. Has no other complaints. Objective: Vital Signs Temp Pulse Resp BP Pulse Ox 36.8 C 68 16 126/62 H 92 12/06/17 11:32 12/06/17 11:32 12/06/17 11:32 12/06/17 11:32 12/06/17 11:32 Laboratory Results 12/06/17 04:34 12/06/17 04:34 12/05/17 12/06/17 12/07/17 05:59 05:59 05:59 Intake Total 1000 150 Output Total 500 2450 750 Balance 500 -2300 -750 PT 24.9 SEC (12.0-15.0) H 12/06/17 04:34 INR 2.25 (0.83-1.16) H 12/06/17 04:34 - Physical Exam Constitutional: no apparent distress, appears nourished, not in pain, chronically ill appearing Eyes: PERRL Ears, Nose, Mouth, Throat: hearing normal Cardiovascular: regular rate and rhythym Respiratory: no respiratory distress Gastrointestinal: normoactive bowel sounds Genitourinary: quach in urethra Skin: warm Musculoskeletal: generalized weakness Neurologic: AAOx3 Psychiatric: interacting appropriately, poor insight, poor memory ICD10 Worksheet Patient Problems: Problems Problem Status Onset Dehydration Acute Generalized weakness Acute Hyperglycemia Acute Afib - Atrial fibrillation Active CAD - Coronary arteriosclerosis Active Chronic kidney disease stage 5 Active History of - hypertension Active Tachycardia-bradycardia Active Chest pain Acute Chronic renal insufficiency Acute Dementia Acute Diabetes mellitus type 1 Acute ESBL (extended spectrum beta-lactamase) producing bacteria infection Acute ~08/04 Elevated troponin Acute Hypoxia Acute 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
--- NOTE | 2017-12-06 14:33 | WOCRNPDOC ---
WOCRN Advanced Assessment Note - Skin Integrity Problem, Advanced Assess Right Heel Pressure Injury Dressing Type: Open to Air Exudate Amount: None Exudate Characteristic(s): None Sheryl Wound Tissue: Intact, Calloused Sheryl Wound Swelling: None Wound Bed Color: Black Wound Bed Constitution: Stable Eschar Site Odor: None Site Measurement - Head-to-Toe Length X Width X Depth (cm): 2.1cmx3.5cmx eschar Pressure Injury Stage: Unstageable Pressure Injury Present on Admit: Yes (hospitalist notified) Skin Integrity Problem Comment: Wound w/ 100% stable eschar noted to R heel. No periwound erythema or swelling. Per , this is a long-standing pressure injury. Discussed off-loading measures, and was told patient does not tolerate an off-loading heel boot; his says he "kicks it off" and does much better w / floating his heel off the edge of a pillow. Will initiate order to off-load wound, and paint w/ Povidone-Iodine BID to keep eschar dry and stable. Report given to store receiving specialistSOPHIA Weinberg. Hospitalist notified.
[2017-12-06] MEDS ORDERED: WARFARIN SODIUM 2.5 MG TAB PO SCH (16:00)
--- NOTE | 2017-12-06 16:03 | ASMTCMCOM ---
CM Note CM Note Notes: Chart reviewed. DC POC is to [facility] pending u=insurance approval tomorrow. CM to follow. Date Signed: 12/06/2017 04:02 PM Electronically Signed By:Monalisa Hoover RN
[2017-12-06] MEDS: AMIODARONE HCL 200 MG TAB PO SCH (20:57)
[2017-12-06] MEDS: LISINOPRIL 5 MG TAB PO SCH (20:57)
[2017-12-06] MEDS: ATORVASTATIN CALCIUM 20 MG TAB PO SCH (20:58)
[2017-12-07 05:28] LABS: INR 1.68 (0.83-1.16); PROTIME(PATIENT) 19.9 SEC (12.0-15.0)
[2017-12-07] MEDS: LEVOTHYROXINE 50 MCG TAB PO SCH (05:38)
[2017-12-07] MEDS ORDERED: INSULIN GLARGINE 100 UNITS/ML UNIT SC SCH (07:49)
[2017-12-07 08:10] VITALS: BP 159/80; PULSE 67; RESP 20; TEMP 97.5; O2SAT 93
[2017-12-07] MEDS: TACROLIMUS ANHYDROUS 0.5 MG CAP PO SCH (08:47)
[2017-12-07] MEDS: predniSONE 5 MG TAB PO SCH (08:47)
[2017-12-07] MEDS: ASPIRIN EC 81 MG TAB PO SCH (08:47)
[2017-12-07] MEDS: METOPROLOL TARTRATE 25 MG TAB PO SCH (08:47)
[2017-12-07] MEDS: MYCOPHENOLATE MOFETIL 250 MG CAP PO SCH (08:47)
[2017-12-07] MEDS: INSULIN LISPRO 100 UNIT/ML SC SCH ×2 (08:48→12:05)
--- NOTE | 2017-12-07 10:06 | HOSPPROG ---
Hospitalist Progress Note Assessment/Plan: 72y male with c/o weakness. First encounter, chart reviewed. D/W CM. * DM 1 - uncontrolled -he can no longer manage insulin pump due to dementia -change to SQ insulin -significant hypoglycemia w hyperglycemia/ better this morning -decreased Lantus to daily and decreased dose to 10 units sq daily * Weakness due to dehydration -PT/OT -per is , he couldn't walk and get out of the car -reviewed his care w Therapy/ he needs rehab, his legs easily buckle * CAD/CABG -borderline trops /no chest pain,no shortness of breath * Renal transplant - chronic immunosuppression -at baseline creatinine 1.5 * Afib/PCM -amiodarone, metoprolol -chronic warfarin, INR is 1.65 * CVA -ASA, statin *hypothyroid -Synthroid *hyperkalemia -resolved *urinary retention -chronic, needing frequent straight catheterizations -Quach in for now - to make an appt with Dr Valentine for f/u care *Dispo -SNF [facility] Subjective: José Manuel is upset, he wants to go home badly to be with his dogs. Understands he needs therapy. Objective: Vital Signs Temp Pulse Resp BP Pulse Ox 36.4 C 67 20 159/80 H 93 12/07/17 08:00 12/07/17 08:47 12/07/17 08:00 12/07/17 08:47 12/07/17 08:00 Laboratory Results 12/06/17 04:34 12/06/17 04:34 12/06/17 12/07/17 12/08/17 05:59 05:59 05:59 Intake Total 150 550 Output Total 2450 3375 400 Balance -2300 -2825 -400 PT 19.9 SEC (12.0-15.0) H 12/07/17 04:17 INR 1.68 (0.83-1.16) H 12/07/17 04:17 - Physical Exam Constitutional: no apparent distress, appears nourished Eyes: PERRL Ears, Nose, Mouth, Throat: hearing normal Respiratory: no respiratory distress Genitourinary: quach in urethra Skin: warm Musculoskeletal: generalized weakness Neurologic: AAOx3 Psychiatric: interacting appropriately, poor insight ICD10 Worksheet Patient Problems: Problems Problem Status Onset Dehydration Acute Generalized weakness Acute Hyperglycemia Acute Afib - Atrial fibrillation Active CAD - Coronary arteriosclerosis Active Chronic kidney disease stage 5 Active History of - hypertension Active Tachycardia-bradycardia Active Chest pain Acute Chronic renal insufficiency Acute Dementia Acute Diabetes mellitus type 1 Acute ESBL (extended spectrum beta-lactamase) producing bacteria infection Acute ~08/04 Elevated troponin Acute Hypoxia Acute 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
--- NOTE | 2017-12-07 10:29 | PDIAF ---
- Diagnosis Diagnosis: weakness, DM1, urinary retention, atrial fibrillation Code Status: Do Not Resuscitate - Medication Management Discharge Medications: Medications to Continue on Transfer Amiodarone HCl [Pacerone (*)] 200 mg PO HS 12/01/17 [Last Taken 11/30/17] Aspirin EC [Aspirin EC 81 mg (*)] 81 mg PO DAILY 12/01/17 [Last Taken 12/01/17] Atorvastatin Calcium [Lipitor 20 mg (*)] 20 mg PO HS 12/01/17 [Last Taken ] Furosemide [Lasix 20 MG (*)] 10 mg PO DAILY 12/01/17 [Last Taken 12/01/17] Levothyroxine [Synthroid 50 mcg (*)] 50 mcg PO DAILY06 12/01/17 [Last Taken ] Metoprolol Tartrate [Lopressor 25 mg (*)] 25 mg PO BID 12/01/17 [Last Taken ] Mycophenolate Mofetil [MYCOPHENOLATE MOFETIL] 750 mg PO BID 12/01/17 [Last Taken 12/01/17] Quinapril HCl [Accupril 5 mg] 5 mg PO HS 12/01/17 [Last Taken 11/30/17] Tacrolimus Anhydrous [Prograf 0.5 MG (*)] 1.5 mg PO Q12 12/01/17 [Last Taken ] Timolol 0.5% [TIMOPTIC 0.5% (*)] 1 drops LEFTEYE BID 12/01/17 [Last Taken ] Warfarin Sodium [Coumadin 5MG (*)] 2.5 mg PO MOTUTHFRSA@16 12/01/17 [Last Taken 11/30/17] predniSONE 5 mg PO DAILY 12/01/17 [Last Taken 12/01/17] Insulin Glargine [Lantus Syringe] 15 units SC DAILY unit 12/07/17 [Last Taken Unknown] Insulin Lispro [HumaLOG LISPRO] 0 unit SC TIDMEAL unit 12/07/17 [Last Taken Unknown] Discharge Medications: Refer to the Discharge Home Medication list for PRN reason. PICC Care - Routine: N/A - Orders Services needed: Physical Therapy, Occupational Therapy, Speech Language Pathologist Isolation Type: None Diet Recommendation: ADA 2000 consistent carb Diet Texture: Regular Texture Diet Ram: Yes Additional: Patient had an insulin pump but had a hard time regulating his glucoses patient. Now on sliding scale and Lantus. He needs his glucoses checked Q a.c. And Q HS. He needs to follow up with Dr. Younger. Continue coverage as done at the hospital. A copy of our sliding scale will be sent to you. In addition had significant urinary retention. The patient's has a follow-up appointment for him next week with Dr. Valentine. A Ram catheter has been left in place. - Labs/Radiology BMP Date: 12/10/17 CBC w/diff Date: 12/10/17 PT/INR Date: 12/08/17 (q 3 d till stable) - Follow Up Care Current Providers and Referrals: Mega Leroy MD [Primary Care Provider] - As per Instructions Amos Younger MD [Medical Doctor] - Amos Valentine MD [Medical Doctor] -
--- NOTE | 2017-12-07 10:56 | GDS ---
[f rep st] DISCHARGE SUMMARY DISCHARGE DIAGNOSES: 1. Diabetes, type 1, uncontrolled. 2. Weakness due to dehydration. 3. Coronary artery disease and coronary artery bypass grafting. 4. Renal transplant on chronic immunosuppression. 5. Atrial fibrillation. 6. Cerebrovascular accident. 7. Hypothyroidism. 8. Hyperkalemia. 9. Urinary retention. Briefly, the patient is a 72-year-old gentleman with a history of a renal transplant, chronic atrial fibrillation, on amiodarone, metoprolol, and warfarin , who was brought to the emergency room due to weakness. He went to see his doctors prior to getting admitted and he could not get back in the car because his legs were so weak. His noted that his oxygen levels were 85%. He was admitted and seen and evaluated by Physical Therapy and Occupational Therapy. The recommendation is for him to go to a alf facility for rehabilitation. He will be discharged to [facility] today. HOSPITAL COURSE: 1. Diabetes, type 1. He was unable to manage his insulin pump due to underlying beginning stages of dementia. During his stay, his glucoses have been difficult to manage. Either he was hyperglycemic or hypoglycemic. He is on 1 daily dose of Lantus as well as a sliding scale. The patient sees Dr. Younger in the outpatient setting. I called his . She will set up a followup appointment. 2. Weakness. Physical therapy and occupational therapy are both making recommendations for him to go to rehabilitation. 3. Coronary artery disease. He had borderline troponins. He has no chest pain. No shortness of breath. 4. Renal transplant. He is on chronic immunosuppression. His most recent creatinine is 1.5. This is his baseline. 5. Atrial fibrillation, on amiodarone and metoprolol, rate controlled. He is on chronic oral anticoagulation. INR subtherapeutic today at 1.65. This will be checked every 3 days at the alf facility. 6. CVA on aspirin, statin. 7. Hypothyroidism, on Synthroid. 8. Hyperkalemia, resolved. 9. Urinary retention. He was needing frequent straight catheterizations. Ram has been placed in. He has an appointment next week to see Dr. Valentine for followup care. DISCHARGE CONDITION: Stable. Blood pressure is 159/80, heart rate is 67, respiratory rate is 20, O2 sats on 1 L are 100%. Temperature is 36.4 Celsius. MEDICATIONS AT DISCHARGE: Please see the EMR. DISCHARGE INSTRUCTIONS: 1. Close followup with Dr. Younger in regard to his glucoses. 2. Close followup with Dr. Valentine to evaluate his urinary retention. 3. If he develops fever, chills, chest pain, or shortness of breath, return to the emergency room. Greater than 30 minutes discharging and coordinating his care. /[id number]/MODL MTDD
[2017-12-07] MEDS: TIMOLOL 0.5% 15 ML OPHT.BTL LEFTEYE SCH (11:46)
--- NOTE | 2017-12-07 13:53 | ASDISCHSUM ---
Discharge Information Plan Status:SNF Medically Cleared to Leave:12/06/2017 Discharge Date:12/07/2017 12:47 PM CM D/C Disposition: ADT D/C Disposition:[facility] Facility Projected Discharge Date:12/07/2017 11:00 AM Transportation at D/C: Discharge Delay Reason: Follow-Up Date:12/07/2017 11:00 AM Discharge Slot: Final Diagnosis: Placement Information Referral Type:*Intermediate/SNF Referral ID:[id number] Provider Name:[facility] Address 1:[address] [address] Address 2: City:[place] Selection Factors: State:[place] Patient Contact Information Contact Name:CHAZ Relationship: Address:[address] [place] Alternate Phone: State/Zip Code:[place] [address] Email: Financial Information Financial Class:Medicare Advantage Plans Primary Plan Desc:[employer]IM[employer] MEDICARE ADV Primary Plan Number:[id number] Secondary Plan Desc: Secondary Plan Number: Assessment Information [facility] CM Progress Note CM Note CM Note Notes: Pt admitted w/weakness, dehydration, and hyperglycemia. He has hx of dementia, lives at home w/, Jeanna. PT recommending HHC vs SNF, OT recommending SNF. Met w/pt and to discuss. Jeanna stated that pt needs to be able to transfer from independantly to come home. At this time, pt is not able to do this so we discussed SNF. If SNF, they would like to go to [facility] as he has been here in past and was very pleased w/care. Referral sent and notified Rangel at [facility]. If pt improves and is well enough to go home he will go w/[facility] for RN/PT/OT (he was current w[facility] prior to admission to [facility]). requesting PT, Melly, if home w/HHC. Current dc plan: to [facility] [place] [facility] if accepted or home w/[facility] if pt improves enough. Date Signed: 12/02/2017 04:13 PM Electronically Signed By:Tanya Umana RN [facility] CM Progress Note CM Note CM Note Notes: Spoke w/Nadia from [facility], Insurance auth still has not come through. If auth doesn't come tonight, will not get it until Thursday. CM notified pt and . DC Plan: [facility] Date Signed: 12/04/2017 04:21 PM Electronically Signed By:Jo-Ann Mckeon RN [facility] CM Progress Note CM Note CM Note Notes: Chart reviewed. DC POC is to [facility] pending u=insurance approval tomorrow. CM to follow. Date Signed: 12/06/2017 04:02 PM Electronically Signed By:Monalisa Hoover RN Case Management Discharge Plan Note Case Management Discharge Discharge Order Complete? Answers: Yes Patient to Obtain Answers: Other Notes: [facility] Transportation Arranged Answers: Other Notes: [facility] W/ C Transport will Pick (Date 12/07/2017 12:30 PM & Time) EMTALA Complete Answers: No Case Management Transport Answers: Yes Form Complete Faxed Final Orders Answers: Yes Agency/Facility Transfer Answers: Yes Report Printed & Faxed to Receiving Agency Family Notified Answers: Yes Notes: Spoke w/ Discharge Comments Notes: CM spoke w/ Sowmya Caraballo NP regarding d/c POC. CM spoke w/ Renetta at [facility] and coordinated d/c. CM sent d/c orders. CM provided [facility] w/ phone number to give report. CM available for changes. Plan: [facility] Date Signed: 12/07/2017 10:38 AM Electronically Signed By:DEBBIE Ayala Intervention Information Intervention Type:*Incorrect Registration Date of Service:12/02/2017 09:27 AM Patient Type:Inpatient Staff Member:SOPHIA Anderson, Jennifer Hours: Discipline: Severity: Comment: Intervention Type:*IM-Signed Date of Service:12/07/2017 10:05 AM Patient Type:Inpatient Staff Member:Xena Wilkinson Hours: Discipline: Severity: Comment:
[2017-12-07] MEDS ORDERED: WARFARIN SODIUM 2.5 MG TAB PO SCH (16:00)
== END 2017-12-07 12:47 | DRG 638 ==
LOC: OBSVTOIN 18:24 → F2W 21:03 → F3E 12-02 16:18
PROVIDERS: ADMIT Student in an Organized Health Care Education/Training Program; ATTEND Student in an Organized Health Care Education/Training Program
DX: E11.649 Type 2 diabetes mellitus with hypoglycemia without coma (principal); E11.65 Type 2 diabetes mellitus with hyperglycemia; E86.0 Dehydration; E87.5 Hyperkalemia; R33.9 Retention of urine, unspecified; I48.2 Chronic atrial fibrillation; E03.9 Hypothyroidism, unspecified; F03.90 Unspecified dementia, unspecified severity, without behavioral disturbance, psychotic disturbance, mood disturbance, and anxiety; I25.10 Atherosclerotic heart disease of native coronary artery without angina pectoris; I10 Essential (primary) hypertension; Z66 Do not resuscitate; Z96.41 Presence of insulin pump (external) (internal); Z94.0 Kidney transplant status; Z86.73 Personal history of transient ischemic attack (TIA), and cerebral infarction without residual deficits; Z95.1 Presence of aortocoronary bypass graft; Z99.3 Dependence on wheelchair; Z87.440 Personal history of urinary (tract) infections
CPT/HCPCS: 82947-QW; 97116-GP; 97161-GP; 97166-GO; 97530-GP; 97535-GO; G8978-GP-CK; G8979-GP-CJ; G8980-GP-CK; J1815; J7512